=== PATIENT | female | born 1940 | race Caucasian/White ===

== ENCOUNTER → 2020-02-13 14:48 | Outpatient (BNVA) | payer MEDICARE, SELFPAY | PROVIDERS: PCP Internal Medicine; Referring Provider Internal Medicine; Visit Provider Hospitalist | DX: J44.9 Chronic obstructive pulmonary disease, unspecified (principal); J98.11 Atelectasis | CPT/HCPCS: 99212 ==

== ENCOUNTER → 2020-03-03 14:20 | Outpatient (BNVA) | payer MEDICARE, SELFPAY | PROVIDERS: PCP Internal Medicine; Visit Provider Hospitalist | DX: J44.9 Chronic obstructive pulmonary disease, unspecified (principal); J98.11 Atelectasis; R91.8 Other nonspecific abnormal finding of lung field | CPT/HCPCS: 99212 ==

== ENCOUNTER → 2020-04-21 10:17 | Outpatient (BNVA) | payer MEDICARE, SELFPAY | PROVIDERS: PCP Internal Medicine; Visit Provider Hospitalist | DX: R91.8 Other nonspecific abnormal finding of lung field (principal); J98.11 Atelectasis; J44.9 Chronic obstructive pulmonary disease, unspecified; J21.9 Acute bronchiolitis, unspecified | CPT/HCPCS: 99212 ==

== ENCOUNTER 2020-09-29 10:59 | Outpatient (REF) | payer MEDICARE, SELFPAY ==
--- NOTE | 2020-09-29 17:30 | PFT_ITS ---
INDICATION: Bronchitis. SPIROMETRY: The FEV1 to FVC of 79% with an FEV1 of 1.8 L, which is 93% predicted and an FVC of 2.29 L, which is 88% predicted. Post bronchodilators, there was a significant response of the FEV1 by 14%. The maximum voluntary ventilation 92% predicted. LUNG VOLUMES: Total lung capacity 98% predicted with a residual volume of 119% predicted. DIFFUSION CAPACITY: DLCO of 62% predicted. COMPARISONS: None. INTERPRETATION: No obstructive nor restrictive ventilatory defects noted. There was a significant response to bronchodilators noted. Significantly reactive small airways. Maximum voluntary ventilation within normal limits. Lung volumes within normal limits except for a trend of air trapping and there was a mild diffusion impairment. Clinical correlation warranted. MD ALEK Luciano/MODL / [id number]
== END 2020-09-29 11:00 | disposition home or self-care (01) ==
LOC: HO.RESP 10:59
PROVIDERS: PCP Internal Medicine; Visit Provider Hospitalist
DX: J21.9 Acute bronchiolitis, unspecified (principal)
CPT/HCPCS: 94060; 94727; 94729

== ENCOUNTER → 2020-10-23 10:49 | Outpatient (BNVA) | payer MEDICARE, SELFPAY | PROVIDERS: PCP Internal Medicine; Visit Provider Hospitalist | DX: R07.82 Intercostal pain (principal); J21.9 Acute bronchiolitis, unspecified; J98.11 Atelectasis; J44.9 Chronic obstructive pulmonary disease, unspecified; R91.8 Other nonspecific abnormal finding of lung field; R05 Cough | CPT/HCPCS: 99212 ==

== ENCOUNTER → 2021-04-20 10:30 | Outpatient (BNVA) | payer MEDICARE, SELFPAY | PROVIDERS: PCP Internal Medicine; Visit Provider Hospitalist | DX: J44.9 Chronic obstructive pulmonary disease, unspecified (principal); J21.9 Acute bronchiolitis, unspecified; J98.11 Atelectasis; R05.3 Chronic cough; R91.8 Other nonspecific abnormal finding of lung field | CPT/HCPCS: 99212 ==

== ENCOUNTER → 2021-09-28 10:35 | Outpatient (BNVA) | payer MEDICARE, SELFPAY | PROVIDERS: PCP Internal Medicine; Visit Provider Hospitalist | DX: J44.9 Chronic obstructive pulmonary disease, unspecified (principal); J21.9 Acute bronchiolitis, unspecified; R91.8 Other nonspecific abnormal finding of lung field; J98.11 Atelectasis; R05.9 Cough, unspecified; Z79.899 Other long term (current) drug therapy | CPT/HCPCS: 99212 ==

== ENCOUNTER → 2022-01-07 13:58 | Outpatient (BNVA) | payer MEDICARE, SELFPAY | PROVIDERS: PCP Internal Medicine; Visit Provider Nurse Practitioner Family | DX: G25.0 Essential tremor (principal); R26.9 Unspecified abnormalities of gait and mobility | CPT/HCPCS: 99212 ==

== ENCOUNTER → 2022-06-22 10:43 | Outpatient (BNVA) | payer MEDICARE, SELFPAY | PROVIDERS: PCP Internal Medicine; Visit Provider Hospitalist | DX: J44.9 Chronic obstructive pulmonary disease, unspecified (principal); R91.8 Other nonspecific abnormal finding of lung field; J98.11 Atelectasis; R05.9 Cough, unspecified; Z79.899 Other long term (current) drug therapy | CPT/HCPCS: 99212 ==

== ENCOUNTER → 2022-07-04 10:50 | Outpatient (BNVA) | payer MEDICARE, SELFPAY | PROVIDERS: PCP Internal Medicine Geriatric Medicine; Visit Provider Nurse Practitioner Family | DX: G25.0 Essential tremor (principal); G47.50 Parasomnia, unspecified | CPT/HCPCS: 99212 ==

== ENCOUNTER 2022-11-04 11:38 | Outpatient (AMB) | payer MEDICARE, SELFPAY ==
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
[2022-11-04 11:41] VITALS: BP 142/80; PULSE 72; O2SAT 95; BMI 17.5
== END 2022-11-04 12:37 | disposition home or self-care (01) ==
PROVIDERS: Visit Provider Nurse Practitioner Family
DX: G25.0 Essential tremor (principal); R26.9 Unspecified abnormalities of gait and mobility; G47.50 Parasomnia, unspecified; R32 Unspecified urinary incontinence; R41.89 Other symptoms and signs involving cognitive functions and awareness
CPT/HCPCS: 99214

== ENCOUNTER → 2022-11-04 11:38 | Outpatient (BNVA) | payer MEDICARE, SELFPAY | PROVIDERS: Visit Provider Nurse Practitioner Family | DX: G25.0 Essential tremor (principal); R26.9 Unspecified abnormalities of gait and mobility; G47.50 Parasomnia, unspecified; R32 Unspecified urinary incontinence; F09 Unspecified mental disorder due to known physiological condition; Z79.899 Other long term (current) drug therapy | CPT/HCPCS: 99212 ==

== ENCOUNTER 2022-12-28 10:27 | Outpatient (AMB) | payer MEDICARE, SELFPAY ==
[2022-12-28 10:59] VITALS: PULSE 76; O2SAT 95; BMI 17.3
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
== END 2022-12-28 11:20 | disposition home or self-care (01) ==
PROVIDERS: PCP Internal Medicine Geriatric Medicine; Visit Provider Hospitalist
DX: J45.41 Moderate persistent asthma with (acute) exacerbation (principal); J21.9 Acute bronchiolitis, unspecified; R91.8 Other nonspecific abnormal finding of lung field; J98.11 Atelectasis; R05.9 Cough, unspecified
CPT/HCPCS: 99214

== ENCOUNTER → 2022-12-28 10:27 | Outpatient (BNVA) | payer MEDICARE, SELFPAY | PROVIDERS: PCP Internal Medicine Geriatric Medicine; Visit Provider Hospitalist | DX: J21.9 Acute bronchiolitis, unspecified (principal); J45.41 Moderate persistent asthma with (acute) exacerbation; J44.9 Chronic obstructive pulmonary disease, unspecified; R91.8 Other nonspecific abnormal finding of lung field; J98.11 Atelectasis; R05.3 Chronic cough | CPT/HCPCS: 99212 ==

== ENCOUNTER 2023-02-02 09:14 | Outpatient (REF) | payer MEDICARE, SELFPAY ==
--- NOTE | ~2023-02-02 | MR_ITS ---
MRI OF THE BRAIN WITHOUT IV CONTRAST INDICATION: Unspecified mental disorder due to known physiological condition COMPARISON: None available. TECHNIQUE: Multiplanar multisequence MR imaging of the brain was obtained without IV contrast. FINDINGS: No acute intracranial hemorrhage or infarct. Scattered and confluent periventricular white matter T2/FLAIR hyperintensities, nonspecific however commonly seen with small vessel ischemic disease. No midline shift or hydrocephalus. No acute extra-axial fluid collections. The osseous structures are unremarkable. The pituitary gland, pineal gland and remaining midline structures are unremarkable. Sequela bilateral lens replacement. Otherwise, no orbital pathology. The paranasal sinuses and mastoid air cells are clear. MR/MR head/brain wo con IMPRESSION: No acute intracranial abnormality. Microangiopathy disease.
== END 2023-02-02 09:15 | disposition home or self-care (01) ==
LOC: HO.MRI 09:14
PROVIDERS: PCP Internal Medicine Geriatric Medicine; Visit Provider Nurse Practitioner Family
DX: F09 Unspecified mental disorder due to known physiological condition (principal); G47.50 Parasomnia, unspecified; R26.9 Unspecified abnormalities of gait and mobility; G25.0 Essential tremor; R32 Unspecified urinary incontinence
CPT/HCPCS: 70551

== ENCOUNTER 2023-03-06 10:27 | Outpatient (REF) | payer MEDICARE, SELFPAY ==
--- NOTE | 2023-03-06 | PFT_ITS ---
FLOWS: 1. FEV1 43% of predicted at 0.81 L. 2. FVC 82% of predicted at 2.02 L. 3. FEV1 to FVC ratio of 0.40. 4. Positive bronchodilator response. LUNG VOLUMES: 1. Total lung capacity 128% of predicted at 6.23 L. 2. Residual volume 193% of predicted at 4.1 L. 3. Expiratory reserve volume 62% of predicted at 0.39 L. 4. Slow vital capacity 78% of predicted at 2.02 L. 5. Diffusion capacity is moderately decreased, diffusion capacity had just been mildly decreased after correction for alveolar ventilation.. IMPRESSION: Severe obstructive ventilatory defect with positive bronchodilator response. Increased total lung capacity suggests hyperinflation. Increased residual volume suggests air trapping. Decreased diffusion capacity suggests emphysema. Nixon Dalal MD AP/MODL / [id number]
== END 2023-03-06 10:28 | disposition home or self-care (01) ==
LOC: HO.RESP 10:27
PROVIDERS: PCP Internal Medicine Geriatric Medicine; Visit Provider Hospitalist
DX: J44.9 Chronic obstructive pulmonary disease, unspecified (principal)
CPT/HCPCS: 94010; 94727; 94729; 99212

== ENCOUNTER 2023-03-06 10:31 | Outpatient (AMB) | payer MEDICARE, SELFPAY ==
[2023-03-06 10:37] VITALS: BP 128/70; PULSE 60; O2SAT 94; BMI 17.2
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
== END 2023-03-06 10:58 | disposition home or self-care (01) ==
PROVIDERS: PCP Internal Medicine Geriatric Medicine; Visit Provider Hospitalist
DX: J45.41 Moderate persistent asthma with (acute) exacerbation (principal)
CPT/HCPCS: 94060; 94727; 94729; 99214

== ENCOUNTER 2023-03-07 11:10 | Outpatient (AMB) | payer MEDICARE, SELFPAY ==
[2023-03-07 11:22] VITALS: BP 140/82; PULSE 68; O2SAT 93; BMI 17.2
--- NOTE | 2023-03-07 11:22 | MHC.OFFVIS ---
Intake Vital Signs 03/07/23 11:22 Height 5 ft 4 in Weight 100 lb 4 oz BMI 17.2 BP 140/82 H Blood Pressure Location Lt brachial Position Sitting Pulse 68 Pulse Source Pulse Oximeter Pulse Oximetry (%) 93 Oxygen Delivery Method Room Air Intake Visit Reasons: 4 mo f/u - Tremors - Confirmed Intake Note: Pt presents to the office today for a 4 month follow up for tremors. Pt states her tremors are doing a little better but pt states that sometimes they are more prominent when she has anxiety/fatigue/or nervousness. Pt states she thinks the medication is helping as well. Allergies Opiates Allergy (Intermediate, Uncoded 03/07/23 11:22) Itch and Hives Medication List - Last Reconciled 03/07/23 by SYEDA Pond acetaminophen (Tylenol) 325 mg PO QID PRN albuterol sulfate 2.5 mg (3 mL) inhalation Q6H PRN 30 days budesonide-formoterol 160-4.5 mcg/actuation 2 puffs PO BID 30 days calcium carbonate (Calcium 500) 1,200 mg PO DAILY cetirizine (Zyrtec) 10 mg PO DAILY 30 days folic acid 1 mg PO DAILY hydroxychloroquine 200 mg PO DAILY ipratropium bromide 1 vial inhaled daily; levalbuterol tartrate 45 mcg/actuation (Xopenex HFA) 2 puffs inhalation Q6H PRN 30 days levothyroxine 50 mcg PO DAILY methotrexate sodium (PF) mg subcut metoprolol succinate ER 25 mg PO DAILY nebulizers As directed omeprazole 20 mg PO DAILY primidone 25 mg (1/2 x 50 mg) PO BEDTIME 90 days HPI HPI Comments History of Present Illness Details 82-yr-old female presents for f/u visit. Pt denies any significant interval medical changes. Pt is wondering about weaning off of omeprazole- started omeprazole at some point for GERD s/s. She has started Tums, per rheumatology. She plans to start calcium infusions. She will need bilateral lower molar removal prior - as these already have poor dentition. Her hand tremor varies- sometimes not apparent at all, other times it will make it very difficult to write. Especially, if stressed, hungry, or fatigued. Her voice varies- some days better than others. She can sometimes feel that her foot is stuck when trying to step up on her scale. Not coughing- which is good. Her nose has been dripping for months- which she attributes to allergies. Is taking Primidone 1/2 tab qd- which helps tremor. [facility] Medical History Chronic cough Bronchiolitis Pulmonary nodules Atelectasis Asthma-COPD overlap syndrome Surgical History Hx of neck surgery History of back surgery H/O: hysterectomy Hx of appendectomy Family History Father Heart disease Lung disease Dementia Son Epilepsy Alcohol intake: never Patient Tobacco Use Status: Never used Tobacco Review of Systems Const All systems reviewed & are unremarkable except as noted in HPI and below Physical Exam Vital Signs: Last Vital Signs Pulse 68 03/07/23 11:22 BP 140/82 H 03/07/23 11:22 Pulse Ox 93 03/07/23 11:22 Oxygen Delivery Method Room Air 03/07/23 11:22 BMI result Body Mass Index 17.2 Const General: cooperative and no acute distress Orientation/consciousness: patient oriented x3 HEENT Head: Yes normocephalic Resp Effort & Inspection: normal respiratory effort and able to speak in complete sentences Neuro General: patient oriented x3, gait normal and CN's II-XI intact bilaterally Cognition (Neuro): normal cognition Motor exam (neuro): 5/5 motor strength present throughout Psych Appearance: grossly normal Mental Status: mental status grossly normal Speech and movement: Normal speech and movement present Affect: normal affect Attitude: cooperative Thought process: Normal thought process present Thought content: Normal thought content present Insight: Good insight present (Psych) Judgement: Good judgement present (Psych) Assessment & Plan Assessment & Plan (1) Essential tremor: Code(s): G25.0 - Essential tremor (2) Gait difficulty: Code(s): R26.9 - Unspecified abnormalities of gait and mobility (3) 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 Continue Primidone 25mg qd. Addition of Metoprolol may help w/ tremor- continue per cardiology. For REM sleep behaviors- keep area around bed clear of clutter, notify us w/ any worsening sleep behaviors. Discussed strategies to break freezing/stcuk episodes- stepping inplace, tapping her thigh/hip. Encouraged pt to continue cognitive, social, and physically stimulating activities. Future considerations: in-lab PSG- ? ARTEM/narcolepsy/hypersomnia, low dose CD-LD. Coding Level of Care Code Est Pt Level 4 (64502) Diagnoses Essential tremor G25.0 Gait difficulty R26.9 Parasomnia G47.50
== END 2023-03-07 13:12 | disposition home or self-care (01) ==
PROVIDERS: PCP Internal Medicine Geriatric Medicine; Visit Provider Nurse Practitioner Family
DX: G25.0 Essential tremor (principal); R26.9 Unspecified abnormalities of gait and mobility; G47.50 Parasomnia, unspecified
CPT/HCPCS: 99214

== ENCOUNTER → 2023-03-07 11:10 | Outpatient (BNVA) | payer MEDICARE, SELFPAY | PROVIDERS: PCP Internal Medicine Geriatric Medicine; Visit Provider Nurse Practitioner Family | DX: G25.0 Essential tremor (principal); R26.9 Unspecified abnormalities of gait and mobility; G47.50 Parasomnia, unspecified | CPT/HCPCS: 99212 ==

== ENCOUNTER 2023-06-23 07:53 | Outpatient (AMB) | payer MEDICARE, SELFPAY ==
[2023-06-23 08:14] VITALS: PULSE 81; O2SAT 92; BMI 17.0
--- NOTE | 2023-06-23 08:14 | A.OFFVIS_ITS ---
Intake Vital Signs 06/23/23 08:14 Height 5 ft 4 in Weight 99 lb 2 oz BMI 17.0 Pulse 81 Pulse Source Pulse Oximeter Pulse Oximetry (%) 92 Oxygen Delivery Method Room Air Intake Visit Reasons: 4 MO f/u tremors-Conf Intake Note: Patient presents for 4 month follow up tremors. Allergies Opiates Allergy (Intermediate, Uncoded 06/26/23 13:25) Itch and Hives Medication List - Last Reconciled 06/23/23 by SYEDA Pond acetaminophen (Tylenol) 325 mg PO QID PRN albuterol sulfate 2.5 mg (3 mL) inhalation Q6H PRN 30 days budesonide-formoterol 160-4.5 mcg/actuation 2 puffs PO BID 30 days calcium carbonate (Calcium 500) 1,200 mg PO DAILY cetirizine (Zyrtec) 10 mg PO DAILY 30 days folic acid 1 mg PO DAILY hydrocortisone 1% (Anti-Itch (hydrocortisone)) 1 appl topical QID PRN 7 days hydroxychloroquine 200 mg PO DAILY ipratropium bromide 1 vial inhaled daily; levalbuterol tartrate 45 mcg/actuation (Xopenex HFA) 2 puffs inhalation Q6H PRN 30 days levothyroxine 50 mcg PO DAILY methotrexate sodium (PF) mg subcut metoprolol succinate ER 25 mg PO DAILY nebulizers As directed omeprazole 20 mg PO DAILY primidone 25 mg (1/2 x 50 mg) PO BEDTIME 90 days HPI HPI Comments History of Present Illness Details 83-yr-old female presents for f/u visit. Pt states she developed a worsening cough in Apr. She did have a course of ABT, and did not cough while on the ABT, however the cough has since returned. She is doing a saline rinse. She is f/b Dr Granados- Since the cough onset, she has also had itchy very small pustules, which break open. They come and go. They are her arms and legs. She has a routine dermato logy appt next month. She has a f/u cardiology appt in September- she does not think she needs to keep this appt. When her voice is good on some days- better when her nose is clear. Hand tremor is stable. Typing is difficult. Worse if anxious. Taking Primidone 1/2 tab at bedtime. She is not interested in changing tremor meds. [facility] Medical History Chronic cough Bronchiolitis Pulmonary nodules Atelectasis Asthma-COPD overlap syndrome Surgical History Hx of neck surgery History of back surgery H/O: hysterectomy Hx of appendectomy Family History Father Heart disease Lung disease Dementia Son Epilepsy Social History (Updated 06/26/23 @ 13:30 by Jeannette Odom LPN) Alcohol intake: never Patient Tobacco Use Status: Former Tobacco user Tobacco use type: Cigarette Cigarette Packs Per Day: 1 Years Smoked: 4 Review of Systems Const All systems reviewed & are unremarkable except as noted in HPI and below Physical Exam Vital Signs: Last Vital Signs Pulse 81 06/23/23 08:14 Pulse Ox 92 06/23/23 08:14 Oxygen Delivery Method Room Air 06/23/23 08:14 BMI result Body Mass Index 17.0 Const General: cooperative and no acute distress Resp Effort & Inspection: normal respiratory effort and able to speak in complete sentences Neuro Other: A&O x's 3, w/ just very mild STM lapses Mild voice tremor/spasmotic dysphonia BUE postural tremor. FFM- slight decrease on left Stands easily, slight decreased arm swing, good floor clearance, steady. Assessment & Plan Assessment & Plan (1) Essential tremor: Code(s): G25.0 - Essential tremor (2) Dysphonia, spasmodic: Code(s): J38.3 - Other diseases of vocal cords (3) Rash: Code(s): R21 - Rash and other nonspecific skin eruption Plan For rash: trial hydrocortisone cream- f/u w/ PCP or derm if persists. Discussed alternate tremor tx's- pt opts to not change tx at this time. Continue Primidone 25mg qd. Metoprolol may help w/ tremor- continue per cardiology. For REM sleep behaviors- keep area around bed clear of clutter, notify us w/ any worsening sleep behaviors. Continue strategies to break freezing/stcuk episodes- stepping inplace, tapping her thigh/hip. Encouraged pt to continue cognitive, social, and physically stimulating activities. Future considerations: in-lab PSG- ? ARTEM/narcolepsy/hypersomnia, low dose CD-LD. Medications: New hydrocortisone 1% (Anti-Itch (hydrocortisone)) 1 appl topical QID PRN 28.4 grams 1RF skin irritation 7 days Refilled primidone May take extra 1/2 tab per day prn tremor 25 mg (1/2 x 50 mg) PO BEDTIME 90 tabs 1RF 90 days Discontinued prednisone Discontinued Reason: Duplicate 40 mg (2 x 20 mg) PO BID 10 tabs 0RF Coding Level of Care Code Est Pt Level 4 (74968) Diagnoses Essential tremor G25.0 Dysphonia, spasmodic J38.3 Rash R21
== END 2023-06-23 08:55 | disposition home or self-care (01) ==
PROVIDERS: PCP Internal Medicine Geriatric Medicine; Visit Provider Nurse Practitioner Family
DX: G25.0 Essential tremor (principal); J38.3 Other diseases of vocal cords; R21 Rash and other nonspecific skin eruption
CPT/HCPCS: 99214

== ENCOUNTER → 2023-06-23 07:53 | Outpatient (BNVA) | payer MEDICARE, SELFPAY | PROVIDERS: PCP Internal Medicine Geriatric Medicine; Visit Provider Nurse Practitioner Family | DX: G25.0 Essential tremor (principal); J38.3 Other diseases of vocal cords; R21 Rash and other nonspecific skin eruption | CPT/HCPCS: 99212 ==

== ENCOUNTER 2023-06-26 13:15 | Outpatient (AMB) | payer MEDICARE, SELFPAY ==
[2023-06-26 13:17] VITALS: BP 142/74; PULSE 91; O2SAT 94
--- NOTE | 2023-06-26 13:17 | MHC.OFFVIS ---
Intake Vital Signs 06/26/23 13:17 Height 54 ft Weight 99 lb 3.328 oz BMI 0.2 BP 142/74 H Blood Pressure Location Lt brachial Position Sitting Pulse 91 Pulse Source Pulse Oximeter Pulse Oximetry (%) 94 Oxygen Delivery Method Room Air Intake Visit Reasons: persistent cough Ladle Cleaner Required: No Assistant Professor Of Religion: Assistant Professor Of Religion offered & declined Accompanied by: Self / Same As Patient Allergies Opiates Allergy (Intermediate, Uncoded 06/26/23 13:25) Itch and Hives Medication List - Last Reconciled 06/26/23 by Jeannette Odom LPN acetaminophen (Tylenol) 325 mg PO QID PRN albuterol sulfate 2.5 mg (3 mL) inhalation Q6H PRN 30 days budesonide-formoterol 160-4.5 mcg/actuation 2 puffs PO BID 30 days calcium carbonate (Calcium 500) 1,200 mg PO DAILY folic acid 1 mg PO DAILY hydrocortisone 1% (Anti-Itch (hydrocortisone)) 1 appl topical QID PRN 7 days hydroxychloroquine 200 mg PO DAILY ipratropium bromide 1 vial inhaled daily; levalbuterol tartrate 45 mcg/actuation (Xopenex HFA) 2 puffs inhalation Q6H PRN 30 days levothyroxine 50 mcg PO DAILY methotrexate sodium (PF) mg subcut metoprolol succinate ER 25 mg PO DAILY nebulizers As directed primidone 25 mg (1/2 x 50 mg) PO BEDTIME 90 days HPI persistent cough HPI Details Mckenna is a pleasant 83 year old female, never smoker, with underlying asthma/COPD over lap syndrome, chronic cough, pulmonary nodules and rheumatoid arthritis maintained on methotrexate. At baseline, she is well controlled on symbicort, zyrtec and albuterol neb/MDI. Today she presents for an acute visit. She reports a persistent productive cough with yellow sputum and chest congestion. She denies fever,chills or sick contacts. She denies wheezing or worsening dyspnea. Covid negative. Of note, she was treated in April with azithromycin and prednisone due to similar symptoms. [facility] Medical History Chronic cough Bronchiolitis Pulmonary nodules Atelectasis Asthma-COPD overlap syndrome Surgical History Hx of neck surgery History of back surgery H/O: hysterectomy Hx of appendectomy Family History Father Heart disease Lung disease Dementia Son Epilepsy Social History (Updated 06/26/23 @ 13:30 by Jeannette Odom LPN) Alcohol intake: never Patient Tobacco Use Status: Former Tobacco user Tobacco use type: Cigarette Cigarette Packs Per Day: 1 Years Smoked: 4 Review of Systems Const Denies chills, Denies excessive sweating, Denies fever(s), Denies headache(s) and Denies night sweats Eyes Denies dry eyes, Denies irritation and Denies itchy eyes ENT Reports Normal hearing present, Denies headache(s), Reports nasal congestion, Denies nasal discharge, Reports post nasal drip and Denies sore throat Card Denies chest pain, Denies chest pain at rest, Denies chest pain with activity, Denies claudication, Denies leg edema, Reports dyspnea on exertion, Denies orthopnea and Denies paroxysmal nocturnal dyspnea Resp Reports change in phlegm color, Reports chest congestion, Reports cough, Denies hemoptysis, Denies excessive phlegm production, Denies pain on inspiration, Denies pain with cough, Reports dyspnea on exertion, Denies stridor and Denies wheezing Musc Denies myalgias Neuro Reports Normal hearing present and Denies headache(s) Endo Denies excessive sweating Walt/Lymph Denies lymphadenopathy Aller/Immun Denies itchy eyes, Denies seasonal rhinorrhea and Denies wheezing Physical Exam Vital Signs: Last Vital Signs Pulse 91 06/26/23 13:17 BP 142/74 H 06/26/23 13:17 Pulse Ox 94 06/26/23 13:17 Oxygen Delivery Method Room Air 06/26/23 13:17 BMI result Body Mass Index 0.2 Const General: cooperative, no acute distress and alert Orientation/consciousness: patient oriented x3 Limitations: no limitations HEENT Head: Yes normal to inspection, Yes normocephalic and Yes atraumatic Ears: hearing grossly normal bilaterally and external ears normal Eyes General: appearance normal, both eyes and all related structures Eyelids: Yes eyelids normal Sclerae: sclerae normal EOM: EOMs intact bilaterally Neck Neck: Yes normal visual inspection and Yes no lymphadenopathy Lymphatic: no lymphadenopathy noted Chest Chest palpation & inspection: normal inspection of the chest Resp Effort & Inspection: normal respiratory effort, able to speak in complete sentences, no audible wheezes, no stridor, not tachypneic, no tripod positioning and no use of accessory muscles Auscultation: wheezes expiratory wheezes and throughout and diminished lung sounds Cardio Jugular venous distension: no JVD Rate: regular rate Rhythm: regular rhythm Skin Other: warm, dry General skin exam: no rashes or lesions noted Neuro General: patient oriented x3 Cranial nerves: Yes Normal hearing present Cognition (Neuro): normal cognition Gait exam (Neuro): Normal gait present Extrem General: Yes normal to inspection, Yes capillary refill normal, Yes no clubbing, cyanosis or edema and Yes no pedal edema Psych Appearance: grossly normal and well kempt Speech and movement: Normal speech and movement present and Clear speech present Affect: normal affect Attitude: cooperative Thought process: Normal thought process present Thought content: Normal thought content present Insight: Good insight present (Psych) Judgement: Good judgement present (Psych) Assessment & Plan Assessment & Plan (1) Asthma-COPD overlap syndrome: Code(s): J44.9 - Chronic obstructive pulmonary disease, unspecified Plan Will treat bronchitic symptoms and wheezing with doxycyline and prednisone. If patient's symptoms do not improve will send for CXR. Patient is aware to call if symptoms do not improve or seek emergent care if they worsen. All questions were answered and patient is in agreement of plan. Will follow-up for her regularly scheduled appointment with Dr. Granados, or sooner if needed. Orders: Orders XR chest 2V 06/26/23 R06.00 - Dyspnea, unspecified Medications: New prednisone 40 mg (2 x 20 mg) PO BID 10 tabs 0RF doxycycline hyclate 100 mg PO BID 20 caps 0RF prednisone 40 mg (2 x 20 mg) PO BID 10 tabs 0RF Coding Level of Care Code Est Pt Level 3 (31499) Diagnoses Asthma-COPD overlap syndrome J44.9
== END 2023-06-26 13:58 | disposition home or self-care (01) ==
PROVIDERS: PCP Internal Medicine Geriatric Medicine; Visit Provider Nurse Practitioner Family
DX: J44.9 Chronic obstructive pulmonary disease, unspecified (principal)
CPT/HCPCS: 99213

== ENCOUNTER → 2023-06-26 13:15 | Outpatient (BNVA) | payer MEDICARE, SELFPAY | PROVIDERS: PCP Internal Medicine Geriatric Medicine; Visit Provider Nurse Practitioner Family | DX: J44.9 Chronic obstructive pulmonary disease, unspecified (principal) | CPT/HCPCS: 99212 ==

== ENCOUNTER 2023-10-04 09:34 | Outpatient (AMB) | payer MEDICARE, SELFPAY ==
[2023-10-04 09:46] VITALS: BP 128/60; PULSE 73; O2SAT 96; BMI 17.0
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
== END 2023-10-04 10:06 | disposition home or self-care (01) ==
PROVIDERS: PCP Student in an Organized Health Care Education/Training Program; Visit Provider Hospitalist
DX: J45.41 Moderate persistent asthma with (acute) exacerbation (principal); J44.9 Chronic obstructive pulmonary disease, unspecified; R91.8 Other nonspecific abnormal finding of lung field; J98.11 Atelectasis; R05.9 Cough, unspecified; R06.09 Other forms of dyspnea
CPT/HCPCS: 99214

== ENCOUNTER → 2023-10-04 09:34 | Outpatient (BNVA) | payer MEDICARE, SELFPAY | PROVIDERS: PCP Student in an Organized Health Care Education/Training Program; Visit Provider Hospitalist | DX: J45.41 Moderate persistent asthma with (acute) exacerbation (principal); J44.9 Chronic obstructive pulmonary disease, unspecified; J98.11 Atelectasis; R06.00 Dyspnea, unspecified; R91.8 Other nonspecific abnormal finding of lung field; R05.3 Chronic cough | CPT/HCPCS: 99212 ==

== ENCOUNTER 2023-12-28 10:49 | Outpatient (AMB) | payer MEDICARE, SELFPAY ==
--- NOTE | 2023-12-28 11:00 | A.OFFVIS_ITS ---
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 Required: No Accompanied by: Self / Same As Patient Allergies Opiates Allergy (Intermediate, Uncoded 10/04/23 09:49) Itch and Hives Medication List - Last Reconciled 12/28/23 by SYEDA Pond acetaminophen (Tylenol) 325 mg PO QID PRN albuterol sulfate 2.5 mg (3 mL) inhalation Q6H PRN 30 days budesonide-formoterol 160-4.5 mcg/actuation 2 puffs PO BID 30 days calcium carbonate (Calcium 500) 1,200 mg PO DAILY folic acid 1 mg PO DAILY hydrocortisone 1% (Anti-Itch (hydrocortisone)) 1 appl topical QID PRN 7 days hydroxychloroquine 200 mg PO DAILY ipratropium bromide 1 vial inhaled daily; levalbuterol tartrate 45 mcg/actuation (Xopenex HFA) 2 puffs inhalation Q6H PRN 30 days levothyroxine 50 mcg PO DAILY methotrexate sodium (PF) mg subcut metoprolol succinate ER 25 mg PO DAILY nebulizers As directed primidone 25 mg (1/2 x 50 mg) PO BEDTIME 90 days HPI Comments Details: 83-yr-old female presents for f/u visit. Pt denies any significant interval medical history changes. Pt [facility]- though they do provide housecleaning and dinner in a main dining room She states her sons wanted her to move as they felt she should not be living on her own in her house any longer. She states a major factor was that her house was in need of repairs that she was not interested in doing. She does feel that she was doing a few things that was a bit concerning- forgetting to lock the doors. She notes her PCP was concerned with her weight loss- pt attributes this to moving out of her house- having to go go up and down her stairs carrying boxes multiple times. Pt states she does usually eat well, but as she has been cleaning out her house, she was not eating as there was no food left in the house. Pt reports her voice is a bit hoarse, but voice tremor is ok. She recently had an asthma attack- which she attributed to cleaning of the house. She does not recall having an attack like that before. But the nurse at her facility helped her and gave her breathing tx. She notes a soon as she decided to move into the [facility]/ASSISTED her writing became much beter. Now only if very stressed. The previous rash resolved. [facility] Medical History Pneumonia Chronic cough Bronchiolitis Pulmonary nodules Atelectasis Asthma-COPD overlap syndrome Surgical History Hx of neck surgery History of back surgery H/O: hysterectomy Hx of appendectomy Family History Father Heart disease Lung disease Dementia Son Epilepsy Social History Alcohol intake: never Patient Tobacco Use Status: Former Tobacco user Tobacco use type: Cigarette Cigarette Packs Per Day: 1 Years Smoked: 4 Physical Exam Vital Signs: Last Vital Signs Pulse 67 12/28/23 11:01 BP 122/72 12/28/23 11:01 Pulse Ox 94 12/28/23 11:01 Const General: cooperative and no acute distress Resp Effort & Inspection: normal respiratory effort and able to speak in complete sentences Neuro Other: General: A&O x's 3 Expression: Intact Voice: Hoarse, decreased dysphonia/tremor Tremor: No rest/postural tremor today. Very mild head tremor. Mild LUE kinetic tremor. On Archimede's spiral- very mild tremor, left more so than right. Tone: None Dyskinesia: None FFM: Slight decrease on left Foot taps: Slight decrease on left Gait: Stands easily, good stride- possible left high step, steady gait Psych: Pleasant affect. Assessment & Plan Assessment & Plan (1) Essential tremor: Code(s): G25.0 - Essential tremor Category: Medical (2) Cognitive dysfunction: Code(s): F09 - Unspecified mental disorder due to known physiological condition Category: Medical (3) Dysphonia, spasmodic: Code(s): J38.3 - Other diseases of vocal cords Category: Medical Plan Concur w/ recomendation to ensure pt is eating tis and snacks. Continue Primidone 25mg qd. Metoprolol may help w/ tremor- continue per cardiology. For REM sleep behaviors- Monitor. Keep area around bed clear of clutter, notify us w/ any worsening sleep behaviors. Continue strategies to break freezing/stcuk episodes- stepping inplace, tapping her thigh/hip. Discussed imporatnce of cognitive, social, and physically stimulating activities. Future considerations: in-lab PSG- ? ARTEM/narcolepsy/hypersomnia, low dose CD-LD. Coding Level of Care Code Est Pt Level 4 (00665) Diagnoses Essential tremor G25.0 Cognitive dysfunction F09 Dysphonia, spasmodic J38.3
[2023-12-28 11:01] VITALS: BP 122/72; PULSE 67; O2SAT 94
== END 2023-12-28 11:59 | disposition home or self-care (01) ==
PROVIDERS: PCP Internal Medicine Geriatric Medicine; Visit Provider Nurse Practitioner Family
DX: G25.0 Essential tremor (principal); R41.89 Other symptoms and signs involving cognitive functions and awareness; J38.3 Other diseases of vocal cords
CPT/HCPCS: 99214

== ENCOUNTER → 2023-12-28 10:49 | Outpatient (BNVA) | payer MEDICARE, SELFPAY | PROVIDERS: PCP Internal Medicine Geriatric Medicine; Visit Provider Nurse Practitioner Family | DX: G25.0 Essential tremor (principal); J38.3 Other diseases of vocal cords; F09 Unspecified mental disorder due to known physiological condition | CPT/HCPCS: 99212 ==

== ENCOUNTER 2023-12-29 19:58 | Emergency (ER) | payer MEDICARE, SELFPAY ==
--- NOTE | ~2023-12-29 | CT_ITS ---
EXAMINATION: CT HEAD WITHOUT CONTRAST CLINICAL INFORMATION: Intermittent episodes of confusion COMPARISON: 02/02/2023 TECHNIQUE: Contiguous axial imaging was performed from the skull base to vertex without intravenous administration of contrast. This CT examination was performed using dose optimization techniques as appropriate, variously including the following: *Automated exposure control *Adjustment of mA and/or kV according to patient size (this includes techniques or standardized protocols for targeted exams where dose is matched to indication/reason for exam; i.e. extremities or head) *Use of iterative reconstruction technique DLP: 627 mGy-cm FINDINGS: There is no evidence of acute intracranial hemorrhage or territorial infarction. No abnormal mass-effect or midline shift is seen. Andrews to white matter differentiation is well preserved. No extra-axial fluid collections are identified. The ventricles are normal in size. There is moderate periventricular white matter hypoattenuation consistent with chronic small vessel ischemic disease. Mild volume loss is noted. The osseous structures and soft tissues are normal. Partial opacification of the left sphenoid sinus. The mastoid air cells are well-aerated. CT/CT head/brain wo IV con IMPRESSION: No acute intracranial pathology. Chronic small vessel ischemic disease and volume loss. Electronically signed by: Omkar Ha MD 12/30/2023 01:45 AM EDT
[2023-12-29 20:02] VITALS: BP 184/76; PULSE 74
[2023-12-29 20:06] VITALS: BP 169/71; PULSE 78; RESP 16; TEMP 36.8; O2SAT 97; BMI 17.5
--- NOTE | 2023-12-29 20:13 | ECG_ITS ---
Test Reason : WEAKNESS Blood Pressure : / mmHG Vent. Rate : 072 BPM Atrial Rate : 072 BPM P-R Int : 182 ms QRS Dur : 118 ms QT Int : 394 ms P-R-T Axes : 078 073 064 degrees QTc Int : 431 ms Normal sinus rhythm Right bundle branch block Abnormal ECG No previous ECGs available Referred By: Generic ED Physician Electronically Signed By:STELLA CEDENO
[2023-12-29 20:36] LABS: MANUAL DIFF FLAG NO
[2023-12-29 20:37] LABS: Basophils Percent Auto 0.6 % (0-2); Eosinophils Absolute Auto 0.6 X10*3/uL (0.0-0.4); Eosinophils Percent Auto 8.7 % (0-4); Hematocrit 35.6 % (37.0-47.0); Hemoglobin 12.3 g/dl (12.0-16.0); Imm Gran Abs Auto 0.03 X10*3/uL (0.00-0.03); Imm Gran Pct Auto 0.4 % (0.0-0.4); Lymphocytes Absolute Auto 0.9 X10*3/uL (1.2-4.9); Lymphocytes Percent Auto 12.1 % (20-40); Mean Corpuscular HGB Conc 34.6 g/dl (31.0-35.0); Mean Corpuscular Hemoglobin 30.7 pg (27.0-33.0); Mean Corpuscular Volume 88.8 fL (80.0-98.0); Mean Platelet Volume 8.7 fL (9.4-12.3); Monocytes Absolute Auto 0.6 X10*3/uL (0.1-1.2); Monocytes Percent Auto 8.5 % (2-11); Neutrophils Percent Auto 69.7 % (45-73); Platelet Count 239 X10*3/uL (160-400); Red Blood Count 4.01 X10*6/uL (4.20-5.50); Red Cell Distribution Width 13.8 % (11.0-16.0); White Blood Count 7.1 X10*3/uL (4.8-10.8)
[2023-12-29 20:42] LABS: INTERNATIONAL NORM RATIO 1.1 (0.9-1.1); Prothrombin Time 13.5 SEC (11.1-13.3)
[2023-12-29 20:52] LABS: Alanine Aminotransferase 13 U/L (0-31); Albumin Level 3.4 g/dL (3.5-5.0); Alkaline Phosphatase 66 U/L (39-117); Anion Gap 11 (12-20); Aspartate Amino Transferase 22 U/L (5-31); Bilirubin Total 0.2 mg/dL (0.0-1.0); Blood Urea Nitrogen 21 mg/dL (9-16); Calcium 9.1 mg/dL (8.4-10.2); Carbon Dioxide 28 mmol/L (22-29); Chloride 101 mmol/L (96-108); Estimated Glomerular Filt Rate > 60; Glucose Random 98 mg/dL (60-115); Potassium 4.3 mmol/L (3.3-5.1); Sodium 136 mmol/L (135-145); Total Protein 6.4 g/dL (6.5-8.0)
[2023-12-29 20:57] LABS: Appearance Urine Clear; Color Urine Yellow; Glucose Urine UA Negative (Negative); Leukocyte Esterase Urine Negative (Negative); Nitrite Urine Negative (Negative); PH 7.5 (5.0-9.0); Urine Blood Negative (Negative); Urine Ketones Negative (Negative); Urine Protein Negative (Neg-Trace)
[2023-12-29 21:00] LABS: Troponin-I High Sensitivity < 2.7 ng/L (<3.5-17.0)
--- NOTE | 2023-12-29 21:04 | PC.NURSE ---
Family at bedside, spoke to them about event's precipitating admission to ED, patients current mental status, son notes R side of patient's face at [facility] looked significantly drooped, looks better now but still very slightly drooped. Family noted patient was confused and had significant amount of difficulty opening her door at [facility], patient's current mental status is at their normal.
[2023-12-29 22:05] VITALS: BP 155/70; PULSE 69; RESP 18; TEMP 36.7; O2SAT 95
--- NOTE | 2023-12-30 00:48 | ED.NEUROSD ---
HPI - Neuro Symptoms/Deficit General Chief Complaint: Neuro Symptoms/Deficit Stated Complaint: General weakness Time Seen by Provider: 12/30/23 00:22 Source: patient, family and EMS Mode of arrival: EMS Limitations: no limitations History of Present Illness ED Provider: Dr. Helga Miramontes HPI Narrative: Patient comes to the emergency room from assisted living. According to the patient, she has been having intermittent episodes of feeling confused. Patient states that this has never happened before. Today, patient had difficulty operating the phone, could not figure out how to do it. Then, patient had trouble opening the door. Seems that patient kept reaching over to the handle without actually touching it, until eventually she was able to open the door Related Data Home Medications ?Medication ?Instructions ?Recorded ?Confirmed folic acid 1 mg tablet 1 mg PO DAILY 02/13/20 12/28/23 hydroxychloroquine 200 mg tablet 200 mg PO DAILY 02/13/20 12/28/23 methotrexate sodium (PF) 25 mg/mL mg subcut 02/13/20 12/28/23 injection solution levothyroxine 50 mcg tablet 50 mcg PO DAILY 06/22/22 12/28/23 metoprolol succinate 25 mg 25 mg PO DAILY 06/22/22 12/28/23 tablet,extended release 24 hr nebulizers 06/22/22 12/28/23 acetaminophen 325 mg capsule 325 mg PO QID PRN 07/04/22 12/28/23 (Tylenol) calcium carbonate (Calcium 500) 1,200 mg PO DAILY 07/04/22 12/28/23 Previous Rx's ?Medication ?Instructions ?Recorded ipratropium bromide 0.02 % See Rx Instructions inhalation 04/08/22 solution for inhalation DAILY #30 ea budesonide-formoterol HFA 160 2 puff PO BID 30 days #10.2 grams 12/28/22 mcg-4.5 mcg/actuation aerosol inhaler levalbuterol tartrate 45 2 puff inhalation Q6H PRN 12/28/22 mcg/actuation aerosol inhaler shortness of breath or wheezing 30 (Xopenex HFA) days #15 grams albuterol sulfate 2.5 mg/3 mL 2.5 mg (3 mL) inhalation Q6H PRN 02/06/23 (0.083 %) solution for nebulization shortness of breath or wheezing 30 days #180 mL hydrocortisone 1 % topical cream 1 appl topical QID PRN skin 06/23/23 (Anti-Itch (hydrocortisone)) irritation 7 days #28.4 grams primidone 50 mg tablet 25 mg (1/2 x 50 mg) PO BEDTIME 90 12/28/23 days #90 tabs Allergies Allergy/AdvReac Type Severity Reaction Status Date / Time Opiates Allergy Intermediate Itch and Uncoded 12/29/23 20:12 Hives Review of Systems Review of Systems: Constitutional : No Weight loss, No Fever, No Chills, No Night Sweats, No Fatigue, No Malaise ENT/Mouth : No Hearing loss, No Ear Pain, No Nasal Congestion, No Sinus Pain, No Hoarseness, No sore throat, No Rhinorrhea, No Swallowing Difficulty Eyes: No Eye Pain, No Swelling, No Redness, No Foreign Body, No Discharge, No Vision Changes Cardiovascular : No Chest Pain, No SOB, No Dyspnea on Exertion, No Orthopnea, No Edema, No Palpitations Respiratory : No Cough, No Sputum, No Wheezing, No Smoke Exposure, No Dyspnea Gastrointestinal : No Nausea, No Vomiting, No Diarrhea, No Constipation, No abdominal Pain, No Hematochezia, No Melena Genitourinary : no irregular bleeding, No Dysuria, No Urinary Frequency, No Hematuria, No Urinary Incontinence, No Urgency, No Flank Pain, No Urinary Flow Changes, No Hesitancy Musculoskeletal : No joint pain, No Myalgias, No Joint Swelling Skin : No Skin Lesions, No rash Neuro : No Weakness, No Numbness, No Paresthesias, No Loss of Consciousness, No Dizziness, No Headache, complaining of intermittent episodes of altered mental status/confusion Psych : No Anxiety/Panic, No Depression, No SI/HI/AH/VH, No Social Issues, Heme/Lymph: No Bruising, No Bleeding,No Lymphadenopathy Endocrine : No Polyuria, No Polydipsia, No Temperature Intolerance PMFSH Past Medical History Medical History Pneumonia Chronic cough Bronchiolitis Pulmonary nodules Atelectasis Asthma-COPD overlap syndrome Surgical History Hx of neck surgery History of back surgery H/O: hysterectomy Hx of appendectomy Family History Family History Father Heart disease Lung disease Dementia Son Epilepsy Social History Social History Alcohol intake: never Patient Tobacco Use Status: Former Tobacco user Tobacco use type: Cigarette Cigarette Packs Per Day: 1 Years Smoked: 4 Smoked in Last 30 Days: No Use of substances other than those prescribed or required for medical reasons: No Advance Directives: No Advance Directives Information Provided: No Do you have a plan to hurt others: No Plan Physical Exam Vital Signs: Vital Signs: Last Vital Signs Temp 98.0 F 12/29/23 22:05 Pulse 69 12/29/23 22:05 Resp 18 12/29/23 22:05 BP 155/70 H 12/29/23 22:05 Pulse Ox 95 12/29/23 22:05 O2 Del Method Room Air 12/29/23 22:05 BMI result Body Mass Index 17.5 Const: Other: Appearance: Alert. Oriented X3. No acute distress. Eyes: Pupils equal, round and reactive to light. ENT: Pharynx normal. Neck: Normal inspection. Neck supple. No lymph nodes noted. No crepitus CVS: Normal heart rate and rhythm. Pulses normal. Normal S1 and S2 Respiratory: No respiratory distress. Breath sounds normal. No Wheezing. No rales Abdomen: Soft and nontender. No rigidity. No distention. Skin: Skin warm and dry. Normal skin color. Normal skin turgor. Extremities: No lower extremity edema. No Lacerations. No Rash Neuro: Oriented X 3. No motor deficit. No sensory deficit. Moving all extremities. No slurred speech. CN 2 through 12 grossly intact Psych: calm, cooperative, normal affect Medical Decision Making Medical Decision Making MDM Narrative: My interpretation of labs: Normal hematology and chemistry, UA negative. -I discussed with the patient that ideally we should get a CT scan to see if she is having intermittent TIAs, or there are old lacunar infarcts. Patient states that to her knowledge she has never been told she has had TIAs or old infarcts. Patient agrees to stay for a CT scan. At this time, patient feels otherwise well. Asymptomatic My interpretation of CT scan, no obvious abnormality. No intracranial bleed. Differential Diagnosis Differential Diagnoses: The differential diagnosis associated with the presentation includes (TIA, CVA, dementia, UTI) Admission/Observation Consideration of admission/observation: Escalation of care including admission/observation considered (Given patient's set of complaints, observation was considered) Lab Data MDM Lab Attestation statement: I reviewed the patient's lab results. 12/29/23 20:29 12/29/23 20:29 Labs: Lab Results 12/29/23 12/29/23 Range/Units 20:29 20:51 WBC 7.1 (4.8-10.8) X10*3/uL RBC 4.01 L (4.20-5.50) X10*6/uL Hgb 12.3 (12.0-16.0) g/dl Hct 35.6 L (37.0-47.0) % MCV 88.8 (80.0-98.0) fL MCH 30.7 (27.0-33.0) pg MCHC 34.6 (31.0-35.0) g/dl RDW 13.8 (11.0-16.0) % Plt Count 239 (160-400) X10*3/uL MPV 8.7 L (9.4-12.3) fL Immature Gran % (Auto) 0.4 (0.0-0.4) % Neut % (Auto) 69.7 (45-73) % Lymph % (Auto) 12.1 L (20-40) % [place] % (Auto) 8.5 (2-11) % Eos % (Auto) 8.7 H (0-4) % Baso % (Auto) 0.6 (0-2) % Lymph # (Auto) 0.9 L (1.2-4.9) X10*3/uL [place] # (Auto) 0.6 (0.1-1.2) X10*3/uL Eos # (Auto) 0.6 H (0.0-0.4) X10*3/uL Baso # (Auto) 0.0 (0.0-0.2) X10*3/uL Abs Immat Gran (auto) 0.03 (0.00-0.03) X10*3/uL Absolute Neuts (auto) 5.0 (2.0-8.3) x10*3/uL Absolute Nucleated RBC 0.000 (0.0-0.012) X10*3/uL Nucleated RBC % (auto) 0.0 (0.0-0.2) /100WBC PT 13.5 H (11.1-13.3) SEC INR 1.1 (0.9-1.1) Sodium 136 (135-145) mmol/L Potassium 4.3 (3.3-5.1) mmol/L Chloride 101 (96-108) mmol/L Carbon Dioxide 28 (22-29) mmol/L Anion Gap 11 L (12-20) BUN 21 H (9-16) mg/dL Creatinine 0.76 (0.5-1.4) mg/dL Estim Creat Clear Calc 41.0 Estimated GFR > 60 Random Glucose 98 (60-115) mg/dL Calcium 9.1 (8.4-10.2) mg/dL Magnesium 2.0 (1.6-2.6) mg/dL Total Bilirubin 0.2 (0.0-1.0) mg/dL AST 22 (5-31) U/L ALT 13 (0-31) U/L Alkaline Phosphatase 66 (39-117) U/L Troponin I High Sens < 2.7 (<3.5-17.0) ng/L Total Protein 6.4 L (6.5-8.0) g/dL Albumin 3.4 L (3.5-5.0) g/dL Urine Color Yellow Urine Appearance Clear Urine pH 7.5 (5.0-9.0) Ur Specific [place] 1.010 (1.005-1.025) Urine Protein Negative (Neg-Trace) mg/dL Urine Glucose (UA) Negative (Negative) mg/dL Urine Ketones Negative (Negative) mg/dL Urine Blood Negative (Negative) Urine Nitrite Negative (Negative) Ur Leukocyte Esterase Negative (Negative) Independent Interpretation I performed an independent interpretation of an: CT Scan Interpretation: There is no evidence of acute intracranial hemorrhage or territorial infarction. No abnormal mass-effect or midline shift is seen. Andrews to white matter differentiation is well preserved. No extra-axial fluid collections are identified. The ventricles are normal in size. There is moderate periventricular white matter hypoattenuation consistent with chronic small vessel ischemic disease. Mild volume loss is noted. The osseous structures and soft tissues are normal. Partial opacification of the left sphenoid sinus. The mastoid air cells are well-aerated. CT/CT head/brain wo IV con IMPRESSION: No acute intracranial pathology. Chronic small vessel ischemic disease and volume loss. Independent Historian Clinical information obtained from an independent historian. History obtained from or confirmed by: Other (Patient's sons) Critical Care Time Critical Care Time Critical Care Time: Yes Total Critical Care Time: 30 Attestation: I have personally provided critical care time. Time includes review of lab data, radiology results, discussion with consultants, and monitoring for potential decompensation. Intervention performed as documented. Discharge Plan Discharge Clinical Impression: Acute confusion Patient Disposition: Home, Self-Care Instructions: Altered Mental Status (ED) Additional Instructions: Please follow-up with your primary care physician tomorrow. If you have any worsening or new symptoms, please return to the emergency room or call 911 Prescriptions: No Action ipratropium bromide 0.02 % solution See Rx Instructions inhalation DAILY Qty: 30 11RF Rx Instructions: 1 vial inhaled daily; albuterol sulfate 2.5 mg /3 mL (0.083 %) solution for nebulization 2.5 mg inhalation Q6H PRN (Reason: shortness of breath or wheezing) 30 Days Qty: 180 11RF methotrexate sodium (PF) 25 mg/mL solution subcut folic acid 1 mg tablet 1 mg PO DAILY hydroxychloroquine 200 mg tablet 200 mg PO DAILY metoprolol succinate 25 mg tablet extended release 24 hr 25 mg PO DAILY levothyroxine 50 mcg tablet 50 mcg PO DAILY (DME) nebulizers Misc See Rx Instructions .Route Rx Instructions: As directed calcium carbonate [Calcium 500] 500 mg calcium (1,250 mg) tablet,chewable 1,200 mg PO DAILY acetaminophen [Tylenol] 325 mg capsule 325 mg PO QID PRN levalbuterol tartrate [Xopenex HFA] 45 mcg/actuation HFA aerosol inhaler 2 puff inhalation Q6H PRN (Reason: shortness of breath or wheezing) 30 Days Qty: 15 11RF budesonide-formoterol 160-4.5 mcg/actuation HFA aerosol inhaler 2 puff PO BID 30 Days Qty: 10.2 11RF hydrocortisone [Anti-Itch (HC)] 1 % cream 1 appl topical QID PRN (Reason: skin irritation) 7 Days Qty: 28.4 1RF primidone 50 mg tablet 25 mg PO BEDTIME 90 Days Qty: 90 1RF Rx Instructions: May take extra 1/2 tab per day prn tremor Print Language: Upper Sorbian
[2023-12-30 03:02] VITALS: BP 112/70; PULSE 66; RESP 16; TEMP 36.4; O2SAT 96
== END 2023-12-30 03:11 | disposition home or self-care (01) ==
PROVIDERS: Emergency Provider Emergency Medicine; PCP Student in an Organized Health Care Education/Training Program
DX: R41.0 Disorientation, unspecified (principal); F09 Unspecified mental disorder due to known physiological condition; J45.909 Unspecified asthma, uncomplicated; Z79.899 Other long term (current) drug therapy
CPT/HCPCS: 36415; 70450; 80053; 81003; 83735; 84484; 85025; 85610; 93005; 99285

== ENCOUNTER 2023-12-30 09:27 | Inpatient (IN) | payer MEDICARE, SELFPAY ==
[2023-12-30] VITALS (7 sets, daily range): BP systolic 127–167; BP diastolic 56–67; PULSE 71–87; RESP 16–18; TEMP 36.4–36.6; O2SAT 94–97; BMI 15.6
--- NOTE | ~2023-12-30 | MR_ITS ---
EXAMINATION: MR BRAIN WITHOUT CONTRAST CLINICAL INFORMATION: Right hand weakness. Facial droop. COMPARISON: CT imaging from 12/30/2023. TECHNIQUE: Multiplanar, multisequence imaging of the brain was performed without contrast. FINDINGS: There is a 1.1 x 2 cm focal acute infarct in the left frontal centrum semiovale without hemorrhagic transformation. An additional punctate focus of diffusion signal abnormality is also visible in the posterior left parietal cortical juarez matter. There is generalized brain parenchymal volume loss and mild ex vacuo dilatation of the ventricles. No mass effect or midline shift is seen. Moderate chronic small vessel ischemic changes present in the cerebral white matter and brainstem. No extra-axial fluid collections are seen. The craniovertebral junction, marrow signal, and midline structures are normal. The cerebellum is normal. The major intracranial flow voids at the level of the pilot point of [place] are preserved. The dural venous sinus flow voids are maintained. The mastoid air cells are well aerated. Small proteinaceous retention cyst in the left sphenoid sinus mucosal thickening. MR/MR head/brain wo con IMPRESSION: Focal acute infarct in the left frontal centrum semiovale. Additional punctate acute infarct in the cortical juarez matter of the posterior left parietal lobe. No mass effect or hemorrhagic transformation. Moderate chronic white matter microangiopathy and generalized brain parenchymal volume loss. Electronically signed by: Ricardo Coker MD 12/30/2023 04:06 PM EDT
--- NOTE | ~2023-12-30 | CT_ITS ---
EXAMINATION: CT ANGIOGRAM HEAD CT ANGIOGRAM NECK CLINICAL INFORMATION: Right hand numbness. Facial droop. COMPARISON: CT head from 12/30/2023. TECHNIQUE: Initial noncontrast feather washer imaging of the head and neck was performed. Comparison is made with noncontrast head CT from earlier today. Test bolus sequences followed by intravenous administration 70 mL of Omnipaque 350. Helical imaging was performed in the axial plane from the aortic arch to the skull vertex. Delayed postcontrast imaging of the head was also performed. The data was processed at the survey technologist's workstation for generation of MIP sequences. Angled MIPs and volume rendered reformatted images were also generated at an offline 3D workstation. Stenoses are assessed in accordance with NASCET criteria unless otherwise indicated. This CT examination was performed using dose optimization techniques as appropriate, variously including the following: *Automated exposure control. *Adjustment of mA and/or kV according to patient size (this includes techniques or standardized protocols for targeted exams where dose is matched to indication/reason for exam; i.e. extremities or head). *Use of iterative reconstruction technique. DLP: 1418 mGy-cm FINDINGS: CT Head: There is no evidence of acute intracranial hemorrhage or edematous territorial infarction. Andrews-white matter differentiation is preserved. Scattered and partially confluent hypoattenuation in the periventricular and deep white matter are consistent with moderate microangiopathy. Proportional prominence of the ventricles and sulcal spaces without evidence of obstructive hydrocephalus. No abnormal mass effect or midline shift. No extra-axial fluid collections. No pathologic intra-axial enhancement. No acute soft tissue or osseous abnormalities. Mild mucosal thickening of the paranasal sinuses. The mastoid air cells and middle ear cavities are clear. CT Neck: Moderate heterogeneous enlargement of the left thyroid lobe. The remaining cervical soft tissues are within normal limits. Instrument directed anterior fusion of C5-C7. Mild reversal of normal cervical lordosis centered at C4. Moderate degenerative supine anterolisthesis of C2-C4. Facet and uncovertebral joint arthropathy leads to osseous encroachment on the neural foramina from C2-C6. CT Upper Chest: Mild bronchiectasis in the visualized right upper lung. Minimal multifocal mucous plugging of the chest upper lobe bronchi. Otherwise, the visualized lung apices and upper mediastinum are within normal limits. Neck CTA: Aortic Arch: Normal contour and caliber with moderate calcific atherosclerotic disease. Classic 3 vessel branching pattern of the aortic arch. Great Vessel Origins: No significant stenosis of the branch origins. Right Common Carotid Artery: No focal stenosis or occlusion. Cervical Right Internal Carotid Artery: Calcific atherosclerotic disease of the carotid bulb and proximal internal carotid artery causing less than 50% stenosis. Undulating appearance of the rossi consistent with underlying fibromuscular dysplasia. Left Common Carotid Artery: No focal stenosis or occlusion. Cervical Left Internal Carotid Artery: Mixed fibrofatty and calcific atherosclerotic disease of the carotid bulb and proximal internal carotid artery causing less than 50% stenosis. Undulating appearance of the rossi consistent with underlying fibromuscular dysplasia. Cervical Right Vertebral Artery: Co-dominant. Atherosclerotic disease causes mild stenosis of the origin. No additional focal stenosis or occlusion. Cervical Left Vertebral Artery: Co-dominant. Atherosclerotic disease causes mild stenosis of the origin. No additional focal stenosis or occlusion. Brain CTA: Intracranial Internal Carotid Arteries: Calcific atherosclerotic disease of the intracranial internal carotid arteries without occlusion or flow-limiting stenosis. Right Anterior Cerebral Artery: Normal A1 segment. Normal opacification of the distal ANAM segments. Left Anterior Cerebral Artery: Normal A1 segment. Normal opacification of the distal ANAM segments. Anterior Communicating Artery: Normal. Right Middle Cerebral Artery: Normal M1 segment of the MCA without focal stenosis or occlusion. Normal arborization of the distal segments. Left Middle Cerebral Artery: Normal M1 segment of the MCA without focal stenosis or occlusion. Normal arborization of the distal segments. Right Vertebral Artery: Normal V4 segment. Normal opacification of the proximal segments of the posterior inferior cerebellar artery. Left Vertebral Artery: Normal V4 segment. Normal opacification of the proximal segments of the posterior inferior cerebellar artery. Basilar Artery: Normal without focal stenosis or occlusion. Normal appearance of the proximal superior cerebellar arteries. Right Posterior Cerebral Artery: Normal P1 segment. Normal opacification of the distal ALTERATIONS MANAGER segments. Left Posterior Cerebral Artery: Normal P1 segment. Normal opacification of the distal ALTERATIONS MANAGER segments. Normal opacification of the superior sagittal, straight, transverse, and sigmoid sinuses. CT/CT angio head neck IMPRESSION: 1. No evidence of acute intracranial hemorrhage or edematous territorial infarction. Moderate underlying microangiopathy and generalized cerebral volume loss. 2. CTA of the head and neck without proximal occlusion or flow-limiting stenosis. 3. Undulating appearance of the rossi of the cervical ICAs bilaterally consistent with underlying fibromuscular dysplasia. 4. Moderate heterogeneous enlargement of the left thyroid lobe he recommend further characterization with thyroid ultrasound. This critical result was discussed with EDGAR Hendricks at 12:06 on 12/30/2023 and it was ascertained that the content and urgency of the report was understood at the time of direct communication. Electronically signed by: Jg Feng DO 12/30/2023 12:16 PM EDT
--- NOTE | ~2023-12-30 | CT_ITS ---
EXAMINATION: CT HEAD WITHOUT CONTRAST (STROKE PROTOCOL) CLINICAL INFORMATION: Stroke protocol. Right-sided weakness. Facial droop. COMPARISON: Head CT earlier this morning and brain MRI February 02, 2023 TECHNIQUE: Contiguous axial imaging was performed from the skull base to vertex without intravenous administration of contrast. This CT examination was performed using dose optimization techniques as appropriate, variously including the following: *Automated exposure control *Adjustment of mA and/or kV according to patient size (this includes techniques or standardized protocols for targeted exams where dose is matched to indication/reason for exam; i.e. extremities or head) *Use of iterative reconstruction technique DLP: 598 mGy-cm FINDINGS: There is no evidence of acute intracranial hemorrhage or territorial infarction. No abnormal mass effect or midline shift is appreciated. Andrews-white differentiation is well preserved. No extra-axial fluid collections. The ventricular system and cortical sulci are prominent, consistent with age-appropriate volume loss. There are areas of low density in the periventricular and subcortical white matter, most consistent with sequelae of microvascular ischemic change. Soft tissues and osseous structures are unremarkable. . Mild mucosal thickening of the sphenoid sinus. Other visualized paranasal sinuses and mastoid air cells are well aerated. CT/CT head for STROKE IMPRESSION: Chronic microvascular ischemic changes with no CT evidence of acute intracranial abnormality. This critical result was discussed with EDGAR Hendricks at 11:42 AM hours on December 30, 2023. It was ascertained that the content and urgency of the report was understood at the time of direct communication. Electronically signed by: Lance Griffith MD 12/30/2023 11:44 AM EDT
--- NOTE | 2023-12-30 09:42 | ECG_ITS ---
Test Reason : NEURO Blood Pressure : / mmHG Vent. Rate : 080 BPM Atrial Rate : 080 BPM P-R Int : 162 ms QRS Dur : 118 ms QT Int : 384 ms P-R-T Axes : 076 050 051 degrees QTc Int : 442 ms Normal sinus rhythm Right bundle branch block Abnormal ECG When compared with ECG of 29-DEC-2023 20:28, No significant change was found Referred By: Generic ED Physician Electronically Signed By:STELLA CEDENO
[2023-12-30 10:06] LABS: MANUAL DIFF FLAG NO
[2023-12-30 10:09] LABS: Basophils Percent Auto 0.6 % (0-2); Eosinophils Absolute Auto 0.2 X10*3/uL (0.0-0.4); Eosinophils Percent Auto 3.2 % (0-4); Hemoglobin 13.5 g/dl (12.0-16.0); Imm Gran Abs Auto 0.01 X10*3/uL (0.00-0.03); Imm Gran Pct Auto 0.1 % (0.0-0.4); Lymphocytes Absolute Auto 0.7 X10*3/uL (1.2-4.9); Lymphocytes Percent Auto 9.9 % (20-40); Mean Corpuscular HGB Conc 34.6 g/dl (31.0-35.0); Mean Corpuscular Hemoglobin 30.5 pg (27.0-33.0); Monocytes Absolute Auto 0.5 X10*3/uL (0.1-1.2); Monocytes Percent Auto 7.2 % (2-11); Neutrophils Absolute Auto 5.4 x10*3/uL (2.0-8.3); Platelet Count 241 X10*3/uL (160-400); Red Blood Count 4.43 X10*6/uL (4.20-5.50); Red Cell Distribution Width 13.9 % (11.0-16.0); White Blood Count 6.8 X10*3/uL (4.8-10.8)
--- NOTE | 2023-12-30 10:19 | PC.NURSE ---
pt did not pass nursing swallow evaluation at this time. wet/gurgling/coughing noted throughout assessment. pt notified to remain NPO until told otherwise. provider notified/aware of pt failing the evaluation.
[2023-12-30 10:48] LABS: Alanine Aminotransferase 15 U/L (0-31); Albumin Level 3.4 g/dL (3.5-5.0); Alkaline Phosphatase 68 U/L (39-117); Anion Gap 12 (12-20); Aspartate Amino Transferase 26 U/L (5-31); Bilirubin Total 0.3 mg/dL (0.0-1.0); Blood Urea Nitrogen 20 mg/dL (9-16); Calcium 9.1 mg/dL (8.4-10.2); Carbon Dioxide 25 mmol/L (22-29); Chloride 101 mmol/L (96-108); Creatinine Clr Calc Pharmacy 36.8; Estimated Glomerular Filt Rate > 60; Glucose Random 164 mg/dL (60-115); Potassium 4.1 mmol/L (3.3-5.1); Sodium 134 mmol/L (135-145); Total Protein 6.7 g/dL (6.5-8.0)
--- NOTE | 2023-12-30 10:52 | ED_ITS ---
<Statement entered by Cecilio Walton MD - 12/30/23 16:28> I saw this patient with the physician aquatics assistant department head. As far as I can determine the patient's last known well time was 18:00 yesterday evening. 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 Her speech is relatively preserved. She has some mild right arm weakness and right facial weakness. The patient is therefore not a thrombolytic candidate. Her NIH stroke scale is mild, about 4. There is no large vessel occlusion. Therefore there is no indication for acute intervention. The patient will be admitted to the hospitalist service for further care. HPI - Neuro Symptoms/Deficit General Chief Complaint: Neuro Symptoms/Deficit Stated Complaint: R hand arm numbness Time Seen by Provider: 12/30/23 10:52 Source: patient, family, EMS, RN notes reviewed and old records reviewed Mode of arrival: EMS Limitations: no limitations History of Present Illness ED Provider: Nasrin Howell PA-C HPI Narrative: 83 yo female with history of RA on MTX, asthma/COPD, pulmonary nodules, cognitive dysfunction who presents to the ER for re-evaluation of right hand heaviness. She states it feels like ?lead. ? She states she was here last night for the same. She presents with her family who help provide history. The patient lives alone, she has been in the process of moving, lifting boxes, and being under lot of stress. She denies any injury to her hand. She called her family for acute onset of her right hand ?not working right at about 07:00 o'clock last night. She had a hard time dealing the phone with her right hand and was unable to open the door with her right hand when family arrived. She came here where she had lab work and a CT scan. CT scan of her head was unremarkable. She was ultimately discharged home. Family reports this morning she had ongoing complaints about her right hand and they noticed a facial droop. She has had difficulty with ambulation since last night per their report. Patient denies any shortness of breath or chest pain. No nausea, vomiting, diarrhea. No abdominal pain. She has not had any vision changes. She denies any numbness or tingling. Onset (ago): hour(s) (16) Time: 19:00 Timing confirmed by: family member Location: right face, right arm and ataxia History of same: No Severity: moderate Quality: weak and constant Relieving factors: none Exacerbating factors: other (Movement) Context: sudden onset On Anticoagulants: No Associated symptoms: denies other symptoms Treatments Prior to Arrival: none Related Data Home Medications ?Medication ?Instructions ?Recorded ?Confirmed folic acid 1 mg tablet 1 mg PO DAILY 02/13/20 12/28/23 hydroxychloroquine 200 mg tablet 200 mg PO DAILY 02/13/20 12/28/23 methotrexate sodium (PF) 25 mg/mL mg subcut 02/13/20 12/28/23 injection solution levothyroxine 50 mcg tablet 50 mcg PO DAILY 06/22/22 12/28/23 metoprolol succinate 25 mg 25 mg PO DAILY 06/22/22 12/28/23 tablet,extended release 24 hr nebulizers 06/22/22 12/28/23 acetaminophen 325 mg capsule 325 mg PO QID PRN 07/04/22 12/28/23 (Tylenol) calcium carbonate (Calcium 500) 1,200 mg PO DAILY 07/04/22 12/28/23 Previous Rx's ?Medication ?Instructions ?Recorded ipratropium bromide 0.02 % See Rx Instructions inhalation 04/08/22 solution for inhalation DAILY #30 ea budesonide-formoterol HFA 160 2 puff PO BID 30 days #10.2 grams 12/28/22 mcg-4.5 mcg/actuation aerosol inhaler levalbuterol tartrate 45 2 puff inhalation Q6H PRN 12/28/22 mcg/actuation aerosol inhaler shortness of breath or wheezing 30 (Xopenex HFA) days #15 grams albuterol sulfate 2.5 mg/3 mL 2.5 mg (3 mL) inhalation Q6H PRN 02/06/23 (0.083 %) solution for nebulization shortness of breath or wheezing 30 days #180 mL hydrocortisone 1 % topical cream 1 appl topical QID PRN skin 06/23/23 (Anti-Itch (hydrocortisone)) irritation 7 days #28.4 grams primidone 50 mg tablet 25 mg (1/2 x 50 mg) PO BEDTIME 90 12/28/23 days #90 tabs Allergies Allergy/AdvReac Type Severity Reaction Status Date / Time Opiates Allergy Intermediate Itch and Uncoded 12/30/23 09:37 Hives Review of Systems 2 Review of Systems: Yes all other systems are reviewed and are negative PMFSH Past Medical History Medical History Pneumonia Chronic cough Bronchiolitis Pulmonary nodules Atelectasis Asthma-COPD overlap syndrome Surgical History Hx of neck surgery History of back surgery H/O: hysterectomy Hx of appendectomy Family History Family History Father Heart disease Lung disease Dementia Son Epilepsy Social History Social History Alcohol intake: never Patient Tobacco Use Status: Former Tobacco user Tobacco use type: Cigarette Cigarette Packs Per Day: 1 Years Smoked: 4 Smoked in Last 30 Days: No Use of substances other than those prescribed or required for medical reasons: No Advance Directives: Yes Advance Directives Information Provided: No Advance Directives on File: No Do you have a plan to hurt others: No Plan Physical Exam 2 Vital Signs: Vital Signs: Last Vital Signs Temp 97.9 F 12/30/23 11:19 Pulse 79 12/30/23 11:19 Resp 16 12/30/23 11:19 BP 167/67 H 12/30/23 11:19 Pulse Ox 95 12/30/23 11:19 O2 Del Method Room Air 12/30/23 11:19 BMI result Body Mass Index 15.6 Appearance: Alert frail elderly female sitting up in bed. Oriented X3. No acute distress. Head/face: normocephalic, atraumatic. Face is asymmetric with right-sided facial droop Eyes: Pupils equal, round and reactive to light. Extraocular movements are intact. No nystagmus no visual field deficits ENT: Pharynx normal. No tonsillar swelling or exudate. Neck: Normal inspection. Neck supple. CVS: Normal heart rate and rhythm. Pulses normal. Respiratory: No respiratory distress. Breath sounds normal. Abdomen: Soft and nontender. +BS x4 Skin: Skin warm and dry. Normal skin color. Normal skin turgor. No rashes. Extremities: No lower extremity edema. No joint swelling. Neuro/psych: Oriented X 3. Patient has slightly weak prototype special build strength in the right hand. Mild weakness against gravity in her right upper extremity. No pronator drift. Strength is equal and symmetrical in the lower extremities. Mild dysarthria, sensation is equal and symmetrical throughout, intact Medications Administered Discontinued Medications Generic Name Dose Route Start Last Admin Trade Name Sj PRN Reason Stop Dose Admin Iohexol 70 ml 12/30/23 11:42 12/30/23 11:43 Iohexol 350 Mg/Ml 100 Ml Infus..Btl IV 12/30/23 11:43 70 ml ONCE ONE Administration Medical Decision Making Medical Decision Making [facility] Narrative: 83-year-old female with history of asthma/COPD, rheumatoid arthritis on methotrexate who presents to the ER for evaluation of right hand heaviness and right-sided facial droop that she states started last night around 19:00. Her last known well was around 18:00 last evening. She did come here last night complaining of confusion. She had a dry CT of the head that was unremarkable. She states she wanted to leave and go home, she states the in the room surrounding her very loud and she was unable to sleep. She was discharged at 03:00. She states she woke up this morning with ongoing right hand. NIH is 5. Not a TNK candidate. Concern for CVA. CTA of the head and neck did not show any large vessel occlusions. evaluated the patient at the bedside as well. Patient failed swallow evaluation. Will plan to admit for further evaluation of right-sided deficits. Differential Diagnosis Differential Diagnoses: The differential diagnosis associated with the presentation includes Large vessel occlusion, acute stroke, Bolanos's palsy, TIA Admission/Observation Consideration of admission/observation: Escalation of care including admission/observation considered Consult Healthcare Provider Management of the patient was discussed with: Hospitalist Lab Data [facility] Lab Attestation statement: I reviewed the patient's lab results. 12/30/23 10:02 12/30/23 10:23 Labs: Lab Results 12/30/23 12/30/23 12/30/23 Range/Units 10:02 10:23 11:15 WBC 6.8 (4.8-10.8) X10*3/uL RBC 4.43 (4.20-5.50) X10*6/uL Hgb 13.5 (12.0-16.0) g/dl Hct 39.0 (37.0-47.0) % MCV 88.0 (80.0-98.0) fL MCH 30.5 (27.0-33.0) pg MCHC 34.6 (31.0-35.0) g/dl RDW 13.9 (11.0-16.0) % Plt Count 241 (160-400) X10*3/uL MPV 9.0 L (9.4-12.3) fL Immature Gran % (Auto) 0.1 (0.0-0.4) % Neut % (Auto) 79.0 H (45-73) % Lymph % (Auto) 9.9 L (20-40) % [place] % (Auto) 7.2 (2-11) % Eos % (Auto) 3.2 (0-4) % Baso % (Auto) 0.6 (0-2) % Lymph # (Auto) 0.7 L (1.2-4.9) X10*3/uL [place] # (Auto) 0.5 (0.1-1.2) X10*3/uL Eos # (Auto) 0.2 (0.0-0.4) X10*3/uL Baso # (Auto) 0.0 (0.0-0.2) X10*3/uL Abs Immat Gran (auto) 0.01 (0.00-0.03) X10*3/uL Absolute Neuts (auto) 5.4 (2.0-8.3) x10*3/uL Absolute Nucleated RBC 0.000 (0.0-0.012) X10*3/uL Nucleated RBC % (auto) 0.0 (0.0-0.2) /100WBC PT 12.7 (11.1-13.3) SEC Whole Blood PT (11.1-13.5) sec INR 1.0 (0.9-1.1) Whole Blood INR (0.9-1.1) APTT 35.7 (26.0-36.8) SEC Sodium 134 L (135-145) mmol/L Potassium 4.1 (3.3-5.1) mmol/L Chloride 101 (96-108) mmol/L Carbon Dioxide 25 (22-29) mmol/L Anion Gap 12 (12-20) BUN 20 H (9-16) mg/dL Creatinine 0.75 (0.5-1.4) mg/dL Estim Creat Clear Calc 36.8 Estimated GFR > 60 POC Glucose (60-115) mg/dL Random Glucose 164 H (60-115) mg/dL Calcium 9.1 (8.4-10.2) mg/dL Total Bilirubin 0.3 (0.0-1.0) mg/dL AST 26 (5-31) U/L ALT 15 (0-31) U/L Alkaline Phosphatase 68 (39-117) U/L Total Protein 6.7 (6.5-8.0) g/dL Albumin 3.4 L (3.5-5.0) g/dL 12/30/23 12/30/23 Range/Units 11:20 11:21 WBC (4.8-10.8) X10*3/uL RBC (4.20-5.50) X10*6/uL Hgb (12.0-16.0) g/dl Hct (37.0-47.0) % MCV (80.0-98.0) fL MCH (27.0-33.0) pg MCHC (31.0-35.0) g/dl RDW (11.0-16.0) % Plt Count (160-400) X10*3/uL MPV (9.4-12.3) fL Immature Gran % (Auto) (0.0-0.4) % Neut % (Auto) (45-73) % Lymph % (Auto) (20-40) % [place] % (Auto) (2-11) % Eos % (Auto) (0-4) % Baso % (Auto) (0-2) % Lymph # (Auto) (1.2-4.9) X10*3/uL [place] # (Auto) (0.1-1.2) X10*3/uL Eos # (Auto) (0.0-0.4) X10*3/uL Baso # (Auto) (0.0-0.2) X10*3/uL Abs Immat Gran (auto) (0.00-0.03) X10*3/uL Absolute Neuts (auto) (2.0-8.3) x10*3/uL Absolute Nucleated RBC (0.0-0.012) X10*3/uL Nucleated RBC % (auto) (0.0-0.2) /100WBC PT (11.1-13.3) SEC Whole Blood PT 12.7 (11.1-13.5) sec INR (0.9-1.1) Whole Blood INR 1.1 (0.9-1.1) APTT (26.0-36.8) SEC Sodium (135-145) mmol/L Potassium (3.3-5.1) mmol/L Chloride (96-108) mmol/L Carbon Dioxide (22-29) mmol/L Anion Gap (12-20) BUN (9-16) mg/dL Creatinine (0.5-1.4) mg/dL Estim Creat Clear Calc Estimated GFR POC Glucose 100 (60-115) mg/dL Random Glucose (60-115) mg/dL Calcium (8.4-10.2) mg/dL Total Bilirubin (0.0-1.0) mg/dL AST (5-31) U/L ALT (0-31) U/L Alkaline Phosphatase (39-117) U/L Total Protein (6.5-8.0) g/dL Albumin (3.5-5.0) g/dL Independent Interpretation I performed an independent interpretation of an: EKG and CT Scan Interpretation: EKG with normal sinus rhythm, right bundle-branch block, ventricular rate 80 beats per minute, no significant change from yesterday, no ST segment elevations or depressions. Dry CT head without any acute territorial infarct appreciated, no bleed or edema, agree with radiology read Radiology Impression Discussion of test interpretation with radiology: I discussed test interpretation with the radiologist and I have reviewed the radiologist's reading. Radiologist Impression: CT/CT angio head neck IMPRESSION: 1. No evidence of acute intracranial hemorrhage or edematous territorial infarction. Moderate underlying microangiopathy and generalized cerebral volume loss. 2. CTA of the head and neck without proximal occlusion or flow-limiting stenosis. 3. Undulating appearance of the rossi of the cervical ICAs bilaterally consistent with underlying fibromuscular dysplasia. 4. Moderate heterogeneous enlargement of the left thyroid lobe he recommend further characterization with thyroid ultrasound. Independent Historian Clinical information obtained from an independent historian. History obtained from or confirmed by: Other (Adult family members at the bedside) External Record Review External record reviewed: Outpatient record, Prior outpatient labs and Prior outpatient radiology Prescription Management I considered prescription management with: Other (Aspirin and statin) Chronic Conditions Patient?s care impacted by: Other (Asthma/COPD, RA) NIH Stroke Scale Internal: Initial- Upon Arrival Time: 11:16 Level of Consciousness: Alert Level of Consciousness Questions: Answers both questions correctly Level of Consciousness Commands: Performs both tasks correctly Best Gaze: Normal Visual: No visual loss Facial Palsy: Partial paralysis Motor Arm (Right): No drift Motor Arm (Left): No drift Motor Leg (Right): No drift Motor Leg (Left): No drift Limb Ataxia: Present in one limb Sensory: Normal Best Language: No aphasia Dysarthia: Mild to moderate dysarthria Extinction and Inattention: No abnormality Score: 4 Critical Care Time Critical Care Time Critical Care Time: Yes Total Critical Care Time: 42 Attestation: I have personally provided critical care time exclusive of time spent on separately billable procedures. Time includes review of lab data, radiology results, discussion with consultants, and monitoring for potential decompensation. Intervention performed as documented. Discharge Plan Discharge Clinical Impression: Right hand weakness, Facial droop Patient Disposition: Admitted As Inpatient Print Language: Albanian
--- NOTE | 2023-12-30 11:18 | PC.NURSE ---
stroke protocol initialed by EDGAR. pt currently being assessed by ED MD. another 18gIV placed in the left forearm - labs obtained/sent to lab. PT/INR performed by tech. vital signs stable and up to date. nsr on the roofer assistant. plan of care ongoing.
[2023-12-30 11:29] LABS: Glucose, Whole Blood 100 mg/dL (60-115)
[2023-12-30 11:29] LABS: Prothrombin Time 12.7 SEC (11.1-13.3)
[2023-12-30 11:31] LABS: Partial Thromboplastin Time 35.7 SEC (26.0-36.8)
--- NOTE | 2023-12-30 11:36 | PC.NURSE ---
pt to CT at this time.
[2023-12-30] MEDS: iohexoL 350 MG/ML 100 ML INFUS..BTL 70 ML IV (11:43)
[2023-12-30 11:50] LABS: Prothrombin Time Whole Bld POC 12.7 sec (11.1-13.5); ~PT, ~INR - Anti Coag Clinic 1.1 (0.9-1.1)
--- NOTE | 2023-12-30 13:38 | PC.NURSE ---
MRI form filled out/faxed/placed in pt's chart.
--- NOTE | 2023-12-30 14:00 | P.HPHOSP_ITS ---
History of Present Illness Date of Service: 12/30/23 Chief Complaint: Hand weakness 83 yo female with history of RA on methotrexate, asthma/COPD, pulmonary nodules, cognitive dysfunction who presents to the ER for re-evaluation of right hand heaviness. She states it feels like ?lead. ? More recently the patient has been in the process of moving, lifting boxes. Apparently she has been under some stress due to this. She denied any trauma or injury. Apparently she spoke to a family member around 19:00 last night and told them that her hand was not working right. One family member arrived she was unable to open the door with her right hand. She presented to [facility] (formerly [facility] last evening, had a negative CT scan and charged home. She presented again with the same symptoms. She had a head CT and CTA both negative for any acute abnormalities. Family reported that they noted a facial droop as well and difficulty with ambulation since last night. Labs within acceptable limits, vital signs stable. Plan is to place patient in observation for possible TIA versus stroke Review of Systems 2 Review of Systems: Denies any recent fever chills or decrease in appetite respiratory denies any shortness of breath of breath cardiovascular denies chest pain gastrointestinal denies any dysphagia abdominal pain nausea vomiting or diarrhea genitourinary denies any dysuria frequency or hematuria musculoskeletal denies any joint pain or swelling neuropsych denies any weakness or seizures all other systems reviewed are negative [facility] Medical History Pneumonia Chronic cough Bronchiolitis Pulmonary nodules Atelectasis Asthma-COPD overlap syndrome Family History Father Heart disease Lung disease Dementia Son Epilepsy Surgical History Hx of neck surgery History of back surgery H/O: hysterectomy Hx of appendectomy Social History Alcohol intake: never Patient Tobacco Use Status: Former Tobacco user Tobacco use type: Cigarette Cigarette Packs Per Day: 1 Years Smoked: 4 Smoked in Last 30 Days: No Use of substances other than those prescribed or required for medical reasons: No Advance Directives: Yes Advance Directives Information Provided: No Advance Directives on File: No Do you have a plan to hurt others: No Plan Meds Allergies Allergy/AdvReac Type Severity Reaction Status Date / Time Opiates Allergy Intermediate Itch and Uncoded 12/30/23 09:37 Hives Active Medications: Current Medications Acetaminophen (Acetaminophen 325 Mg Tablet) 650 mg PO Q6H PRN PRN Reason: Pain, Mild (Pain Scale 1-3), fever or headache Calcium Carbonate (Calcium Carbonate 750 Mg Tab.Chew) 750 mg PO Q4H PRN PRN Reason: Heartburn Magnesium Hydroxide (Milk Of Magnesia 30 Ml Oral.Susp) 30 ml PO DAILY PRN PRN Reason: Constipation Melatonin (Melatonin 3 Mg Tablet) 6 mg PO BEDTIME PRN PRN Reason: Insomnia Sodium Chloride (0.9 % Sodium Chloride Flush 3 Ml Syringe) 3 [facility] Home Medications ?Medication ?Instructions ?Recorded ?Confirmed ?Last Taken ?Type folic acid 1 mg tablet 1 mg PO DAILY 02/13/20 12/30/23 12/29/23 History hydroxychloroquine 200 mg tablet 200 mg PO DAILY 02/13/20 12/30/23 12/29/23 History methotrexate sodium (PF) 25 mg/mL 12.5 mg subcut FR 02/13/20 12/30/23 Unknown History injection solution levothyroxine 50 mcg tablet 50 mcg PO DAILY 06/22/22 12/30/23 12/29/23 History metoprolol succinate 25 mg 25 mg PO DAILY 06/22/22 12/30/23 12/29/23 History tablet,extended release 24 hr nebulizers 06/22/22 12/28/23 Unknown History acetaminophen 325 mg capsule 325 mg PO QID PRN Pain 07/04/22 12/30/23 Unknown History (Tylenol) calcium carbonate (Calcium 500) 1,000 mg PO DAILY 07/04/22 12/30/23 12/29/23 History budesonide-formoterol HFA 160 2 puff PO DAILY 12/30/23 12/30/23 12/29/23 History mcg-4.5 mcg/actuation aerosol inhaler cholecalciferol (vitamin D3) 25 25 mcg PO DAILY 12/30/23 12/30/23 12/29/23 History mcg (1,000 unit) capsule Physical Exam 2 Vital Signs and Narrative: Vital Signs: Last Vital Signs Temp 97.7 F 12/30/23 13:06 Pulse 77 12/30/23 13:06 Resp 18 12/30/23 13:06 BP 127/64 12/30/23 13:06 Pulse Ox 96 12/30/23 13:06 O2 Del Method Room Air 12/30/23 13:06 BMI result Body Mass Index 15.6 Appearing in no acute distress head is normocephalic atraumatic eyes pupils are PERRLA sclera is anicteric mouth throat mucous membranes are intact and moist neck is supple no lymphadenopathy, no JVD noted lung sounds are clear to auscultation heart regular rate rhythm, clear S1, S2 positive bowel sounds, abdomen is soft, nontender neuro patient is alert x3, no focal deficits Results Labs 12/30/23 10:02 12/30/23 10:23 Labs: Laboratory Results - last 24 hr 12/30/23 12/30/23 12/30/23 10:02 10:23 11:15 MCV 88.0 MCH 30.5 MCHC 34.6 RDW 13.9 Plt Count 241 MPV 9.0 L Immature Gran % (Auto) 0.1 Neut % (Auto) 79.0 H Lymph % (Auto) 9.9 L [place] % (Auto) 7.2 Eos % (Auto) 3.2 Baso % (Auto) 0.6 Lymph # (Auto) 0.7 L [place] # (Auto) 0.5 Eos # (Auto) 0.2 Baso # (Auto) 0.0 Abs Immat Gran (auto) 0.01 Absolute Neuts (auto) 5.4 Absolute Nucleated RBC 0.000 Nucleated RBC % (auto) 0.0 PT 12.7 Whole Blood PT INR 1.0 Whole Blood INR APTT 35.7 Anion Gap 12 Estim Creat Clear Calc 36.8 Estimated GFR > 60 POC Glucose Random Glucose 164 H Calcium 9.1 Total Bilirubin 0.3 AST 26 ALT 15 Alkaline Phosphatase 68 Total Protein 6.7 Albumin 3.4 L 12/30/23 12/30/23 11:20 11:21 MCV MCH MCHC RDW Plt Count MPV Immature Gran % (Auto) Neut % (Auto) Lymph % (Auto) [place] % (Auto) Eos % (Auto) Baso % (Auto) Lymph # (Auto) [place] # (Auto) Eos # (Auto) Baso # (Auto) Abs Immat Gran (auto) Absolute Neuts (auto) Absolute Nucleated RBC Nucleated RBC % (auto) PT Whole Blood PT 12.7 INR Whole Blood INR 1.1 APTT Anion Gap Estim Creat Clear Calc Estimated GFR POC Glucose 100 Random Glucose Calcium Total Bilirubin AST ALT Alkaline Phosphatase Total Protein Albumin Imaging Radiologist's Impressions: Impressions Head/Neck CTA 12/30/23 11:32 IMPRESSION: 1. No evidence of acute intracranial hemorrhage or edematous territorial infarction. Moderate underlying microangiopathy and generalized cerebral volume loss. 2. CTA of the head and neck without proximal occlusion or flow-limiting stenosis. 3. Undulating appearance of the rossi of the cervical ICAs bilaterally consistent with underlying fibromuscular dysplasia. 4. Moderate heterogeneous enlargement of the left thyroid lobe he recommend further characterization with thyroid ultrasound. This critical result was discussed with EDGAR Hendricks at 12:06 on 12/30/2023 and it was ascertained that the content and urgency of the report was understood at the time of direct communication. Electronically signed by: Jg Feng DO 12/30/2023 12:16 PM EDT RP Assessment and Plan (1) Facial droop: Status: Acute Plan 83-year-old woman placed on observation for complaints of hand weakness and heaviness concern for TIA versus stroke Right hand heaviness A TIA versus stroke versus other etiology Head CT and CTA showed no evidence of acute intracranial hemorrhage or infarction, CTA without proximal occlusion or flow-limiting stenosis Mid to telemetry MRI Neurology consultation Asthma/COPD overlap Continue nebulizers as needed Hypertension Continue metoprolol Hypothyroidism Continue levothyroxine DVT prophylaxis with pneumatic compression boots Full code Quality Stroke Does the patient have a stroke diagnosis?: No VTE Prior VTE?: No VTE Risk Level:: Medical - moderate - high VTE Device Contraindication: N/A - Device Ordered VTE Drug Contraindication: Treatment Not Indicated
--- NOTE | 2023-12-30 16:08 | PHA.MEDREC ---
Addendum entered by Shantel Bustos RPh 12/30/23 16:19: MED REC REVIEWED BY [facility] Original Note: Pharmacy Consult ? Medication Reconciliation Pharmacy has completed the medication reconciliation. Spoke with patient to confirm medications, she brought in a list from home that we went over together. She did not have the methotrexate injection yesterday but had it the Monday before (12/21). She has a cream at home she uses prn for rash but cannot remember the name, she hasn't needed to use it a while. She has not used her symbicort in the past few days. She confirmed she only uses a half tab of the primidone at bedtime. All other meds she last had yesterday morning.
[2023-12-30] MEDS: Acetaminophen 325 MG TABLET 650 MG PO (21:29)
[2023-12-30] MEDS: Primidone 50 MG TABLET 25 MG PO (21:29)
[2023-12-31] VITALS (8 sets, daily range): BP systolic 137–176; BP diastolic 62–76; PULSE 62–73; RESP 15–20; TEMP 36.7–36.9; O2SAT 95–98
[2023-12-31] MEDS: 0.9 % Sodium Chloride Flush 3 ML SYRINGE IVFLUSH (05:22)
[2023-12-31] MEDS: Levothyroxine Sodium 50 MCG TABLET PO (05:24)
--- NOTE | 2023-12-31 05:35 | PC.NURSE ---
Hospitalist notified of elevated BP, new orders received
[2023-12-31] MEDS: amLODIPine Besylate 5 MG TABLET PO (05:39)
--- NOTE | 2023-12-31 06:30 | PC.NURSE ---
BP imrovement noted
--- NOTE | 2023-12-31 07:17 | PC.NURSE ---
Pt sleeping. skin pwd. check rise noted.
--- OUTSIDE RECORDS SUMMARY | 2023-12-31 07:53 | XMS_ITS | Continuity of Care Document ---
Author Organization [facility] ter Address [address] [place] [id number] Care Team Providers Care Roadmaster Name Role Phone Cherelle BYRD, Ximena Bonds Primary Care Physic nina Encounter [facility] Date(s): 05/08/22 - 05/10/[address] [id number] Discharge Disposition: A-D/C Home Attending Physician: Tab Brian MD Admitting Physician: Andry BYRD, Simran Salcedo Referring Physician: Not on Staff, Referring MD Allergies, Adverse Reactions, Alerts Substance Reaction Severity Status Latex rash Active Percocet 5/325 Active oxyCODONE vomiting passed out Active Medications aspirin 81 mg oral delayed release tablet 81 mg, By Mouth, Daily, # 90 tablet, Refills 0, Tot. Refills 0, Maintenance, 05/10/22 11:38:00 EST,Route to Pharmacy Electronically, [facility], Partial fill upon patient request if the prescription is for a schedule II opioid drug., 16... Start Date: 05/10/22 Status: Ordered folic acid 1 mg oral tablet TAKE 1 TABLET BY MOUTH EVERY DAY Start Date: 05/09/22 Status: Ordered hydroxychloroquine 200 mg oral tablet 1 tablet = 200 mg, By Mouth, Daily, 0 Refills, Maintenance, 12/26/14 8:30:17 Start Date: 12/26/14 Status: Ordered methotrexate 25 mg/mL injectable solution INJECT SUBCUTANEOUSLY 0.5ML ONCE A WEEK. SINGLE DOSE VIAL. DISCARD REMAINDER OF VIAL. Start Date: 05/09/22 Status: Ordered metoprolol 25 mg oral tablet 12.5 mg, Tablet, By Mouth, 05/10/22 9:00:00 EST Start Date: 05/10/22 Stop Date: 05/10/22 Status: Completed metoprolol 25 mg oral tablet, extended release 25 mg, 1, tablet, By Mouth, Daily, # 30 tablet, Refills 1, Tot. Refills 1, Maintenance, 05/10/22 10:48:00 EST, Route to Pharmacy Electronically, [facility], Partial fill upon patient request if the prescription is for a schedule II opioi... Start Date: 05/10/22 Status: Ordered Nebulizer/Compressor See Instructions, Maintenance, 05/09/22 7:10:00 EST, Supply Start Date: 05/09/22 Status: Ordered Nebulizer/Compressor See Instructions, Maintenance, as needed, 05/09/22 7:10:00 EST, Supply Start Date: 05/09/22 Status: Ordered omeprazole 20 mg oral enteric coated capsule TAKE 1 CAPSULE BY MOUTH EVERY DAY Start Date: 05/09/22 Status: Ordered primidone 50 mg oral tablet 25 mg, 0.5, tablet, By Mouth, Daily at bedtime, # 30 tablet, Refills 5, Maintenance, 05/09/22 11:19:00 EST, Partial fill upon patient request if the prescription is for a schedule II opioid drug. Start Date: 05/09/22 Status: Ordered Synthroid 0.05 mg oral tablet 50, mcg, 1, tablet, By Mouth, Daily, 0, 0, 08/02/07 9:13:34, Print KINGSLEY Number, [id number], Constant Indicator Start Date: 08/02/07 Status: Ordered Vitamin D3 By Mouth, 0 Refills, Maintenance Start Date: 06/26/12 Status: Ordered Problem List Condition Confirmation Course Effective Dates Status Health [facility] Informant Mixed Incontinence (Female) (Male) Confirmed Active Underweight Confirmed Active Results Radiology Reports * Exam Date Time Procedure Performing Provider Status 05/08/22 11:58 PM Chest Portable Letitia Raines; Auth (Verified) Notes: (Chest Portable) Reason For Exam: Pleuritic Pain RESULT: Chest Portable Chest Portable Hx of Present Illness: chest pain starting today, no n v d,; Reason: Pleuritic Pain; Clinical Question(s): Pneumonia COMPARISON: X-ray 12/10/2021 FINDINGS: LINES AND TUBES: None. LUNGS AND PLEURA: Clear hyperinflated lungs. Normal pulmonary vascularity. No pleural effusion. No pneumothorax. HEART, MEDIASTINUM AND WYATT: Heart is normal in size. Normal mediastinal and hilar contour. BONES AND SOFT TISSUES: No acute abnormality. Lower cervical fusion hardware is noted. IMPRESSION: No pneumonia or CHF. Mild COPD. WSN: [id number] Ordering Physician: Norberto Leger Dictated By: Gareth Perales MD Dictated Date/Time: 05/09/22 0:02 am Reviewed By: Gareth Perales MD Signed By: Gareth Perales MD Signed Date/Time: 05/09/22 0:02 am Transcribed By: CHERELLE Transcribed Date/Time: 05/09/22 0:00 am Vital Signs Most recent to oldest [Reference Range]: 1 2 3 Height 162 cm (05/10/22 12:54 PM) 162 cm (05/10/22 10:49 AM) 162 cm (05/10/22 7:10 AM) Weight 43.5 kg (05/09/22 7:03 AM) 41.2 kg (05/09/22 6:36 AM) 45.9 kg (05/09/22 3:25 AM) Oxygen Saturation [94-100 %] 92 % *L* (05/10/22 12:54 PM) 98 % (05/10/22 10:49 AM) 98 % (05/10/22 7:10 AM) Pulse Rate [55-90 bpm] 89 bpm (05/10/22 12:54 PM) 71 bpm (05/10/22 10:49 AM) 92 bpm *H* (05/10/22 8:31 AM) Body Mass Index [18.5-24.99 kg/m2] 16.58 kg/m2 *L* (05/09/22 7:03 AM) 15.7 kg/m2 *L* (05/09/22 6:36 AM) 17.49 kg/m2 *L* (05/09/22 3:25 AM) Blood Pressure [90-138/55-84 mm Hg] 107/60mm Hg (05/10/22 12:54 PM) 119/58mm Hg (05/10/22 10:49 AM) 141/72mm Hg *H* (05/10/22 8:31 AM) Respiratory Rate [16-30 br/min] 18 br/min (05/10/22 12:54 PM) 20 br/min (05/10/22 10:49 AM) 20 br/min (05/10/22 7:10 AM) Temperature [96.8-100.4 DegF] 97.9 DegF (05/10/22 12:54 PM) 97.8 DegF (05/10/22 10:49 AM) 98.4 DegF (05/10/22 7:10 AM) Mode of Delivery (Oxygen) Room air (05/10/22 12:54 PM) Room air (05/10/22 10:49 AM) Room air (05/10/22 7:10 AM) Blood pressure sites Arm, right (05/10/22 12:54 PM) Arm, left (05/10/22 10:49 AM) Arm, left (05/10/22 7:10 AM) Temperature Route Oral (05/10/22 12:54 PM) Oral (05/10/22 10:49 AM) Oral (05/10/22 7:10 AM) Dry Weight 43.5 kg (05/09/22 7:03 AM) 45.9 kg (05/09/22 3:25 AM) 45.9 kg (05/08/22 11:22 PM) Weight Obtained Via Bed scale (05/09/22 7:03 AM) Bed scale (05/09/22 6:36 AM) Patient/family stated (05/08/22 11:22 PM) Dry Weight Obtained Via Patient/family stated (05/08/22 11:22 PM) Social History Social History Type Response Smoking Status Never smoker entered on: 10/31/14 Sex Admission evaluation note * Tab Brian MD: MODIFY Johnny BYRD Veronica: MODIFY, MODIFY Johnny BYRD Veronica: MODIFY, MODIFY Johnny BYRD Veronica: MODIFY, MODIFY Johnny BYRD Veronica: MODIFY, MODIFY Johnny BYRD Veronica: MODIFY, MODIFY Johnny BYRD Veronica: MODIFY, MODIFY Johnny BYRD Veronica: MODIFY, PERFORM Johnny BYRD Veronica: PERFORM, MODIFY Johnny BYRD Veronica: MODIFY, MODIFY Johnny BYRD Veronica: MODIFY, MODIFY Johnny BYRD Veronica: MODIFY, MODIFY Johnny BYRD Veronica: MODIFY, MODIFY Veronica Turner MD: MODIFY, MODIFY Johnny BYRD, Veronica: MODIFY Event Display: Admission Note Authored Date: Patient: ??JOYCE VIRAMONTES ? Age:??82 Years?Sex:??Female?:??1940?? History of Present Illness ?? CC: CP ?? HPI: ?? 82 y/o with PMHx of?? Rheumatoid arthritis on methotrexate and hydroxychloroquine, COPD, Hypothyroidism, GERD, essential tremors who presents to the ED on 05/08 with chest pain. ??Complains of left-sided chest pain started yesterday at around 10:15 PM when she was??sitting watching??TV and??having some slices of??pizza and pineapples.?? Describes it as??tight and??sharp in nature??stabbing-like??does not radiate to the left arm??located??left parasternal area. ??Pain slightly improved with a heating pad??and improved further with nitroglycerin received by the EMS.?? Pain worse??with taking a deep breaths, lying flat, and improved with sitting forwards.?? Patient reports having similar pains prior??that would last for shorter period of time.?? Patient reports having pleurisy prior??when shewas younger.?? Patient's chest pain is not exacerbated by exertion.?? Currently says she is still having 3 out of 10??discomfort.?? No upper respiratory tract symptoms.?? No associated nausea or vomiting??or diaphoresis or SOB.?? Patient has been having some abdominal discomfort and a pulsating sensation in her abdomen??and states that she has been aware of her heartbeats but that has been going on for a long time??particularly her left carotid??artery bleeding.?? Patient reports??over the past2 weeks she has been having some??nausea??at night??and increased acid reflux.?? No lower extremityswelling or increased abdominal girth.?? Otherwise patient does not have any complaints.?? Patient does not report any prior history of??MIs or strokes??or any??heart failure history.?? Seen patient t jose m??comfortable??and her son was at her bedside. ? ED Course:?? - Vitals:??Upon Presentation afebrile, hypertensive 179/93, HR 91 satting 98 on RA - Labs:??CBC WNL differential with absolute eosinophilia 1, D dimer 0.84,?? BMP WNL, HST 12, 21, 21.?? - Diagnostic tests EKG NSR with Bigeminy and RBBB 88 BPM. CXR shows Clear hyperinflated lungs otherwise WNL. - Interim Management:??Patient received nitroglycerin and acetaminophen for pain and aspirin at EMS.?? Review of Systems Constitutional: No fever or chills Cardiac: Check HPI Respiratory: No shortness of breath, no cough, no sore throat Gastrointestinal: Nausea, abdominal discomfort, ??No diarrhea or constipation, No vomiting, Neurological: No headache, No visual Changes Extremities: No weakness, swelling or pain Objective Vital Signs?? Temperature: 98.1 DegF (05/09/22 06:36:00) Temperature Route: Oral (05/09/22 06:36:00) Pulse Rate:??94 bpm??High (05/09/22 07:07:00) Respiratory Rate: 18 br/min (05/09/22 07:23:00) Systolic Blood Pressure: 136 mm Hg (05/09/22 07:07:00) Diastolic Blood Pressure: 62 mm Hg (05/09/22 07:07:00) Blood pressure sites: Arm, left (05/09/22 07:07:00) Mean Arterial Pressure: 87 mm Hg (05/09/22 07:07:00) Pulse Pressure: 74 mm Hg (05/09/22 07:07:00) Oxygen Saturation: 99 % (05/09/22 07:07:00) Mode of Delivery (Oxygen): Room air (05/09/22 07:07:00) Early Warning Score: 0 (05/09/22 07:23:45) ? Physical Exam General: Patient in no acute pain or distress??in?? bed son at bedside HEENT: normocephalic, atraumatic, MMM Respiratory: bilateral equal air entry, clear to auscultation with no wheezes or crackles. CVS: regular rate and rhythm, S1 and S2 present, no murmurs. No JVD.??Non reproducible pain. Abdomen: soft, midepigastric tenderness, non distended, bowel sounds present. Extremities: No edema noted bilaterally. Pulses intact. Neuro: alert and oriented x3. Moving all extremities spontaneously. Following simple commands. Assessment/Plan 82 y/o with PMHx of?? Rheumatoid arthritis on ??methotrexate and hydroxychloroquine, COPD, Hypothyroidism, GERD, Mixed incontinence who presents to the ED on 05/08 with chest pain admitted for ACS R/o. ? Chest pain ?Pleurisy/Pericarditis ? Presented with left sided chest pain worse with breathing and lying flat better with sitting forwards and nitroglycerin. EKG revealed??no ischemic changes. tel;e revealing bigeminy. Troponin of 12, 21,??21 ??on admission. Does not describe prior symptoms of angina including chest pa ?in or shortness of breath at rest oron exertion or CHF. Less likely ACS. Concerns for pleuritic chest pain and pericarditis, EKG with RBBB hard to interpret if pericarditis will appreciate cardiology input. Has hx of GERD and abdominal discomfort but lesslikely contributing to pain. ESR ?? Plan: - manager protein - Consult cardiology - Aspirin 81 mg daily - PRN Acetaminophen for chest Pain- - F/U ESR CRP ? Chronic Stable Medical Conditions Rheumatoid arthritis: Continue Methotrexate and Hydroxychloroquine?? Hypothyroidism: Continue Levothyroxine GERD: Continue Omeprazole Essential tremors: Continue primidone ?? Quality Measures?? CODE Status:Full code confirmed at bedside DVT prophylaxis: Sc Heparin Diet: Cardiac ?? This case has been??reviewed and discussed with .??Tab Turner MD Internal Medicine PGY-1 Pager: [phone] ? Attending Attestation (Tab Brian MD):??I have seen and evaluated this patient. ??I have discussed the case and its management with the resident and agree with the findings and plan as documentedin the resident???s note. ?? cards rec echo and ASA ?? Histories Allergies Allergies ?(Active and Proposed Allergies Only) Percocet 5/325? (Severity: Unknown severity, Onset: Unknown) oxyCODONE? (Severity: Unknown severity, Onset: Unknown) ?Reactions: vomiting passed out Latex? (Severity: Unknown severity, Onset: Unknown) ?Reactions: rash ? Past Medical History/Problem List Active Problems??(2) Rheumatoid arthritis Hypothyroidism GERD History of mixed into incontinence COPD ? Past Surgical History Tonsillectomy 1947?? Dilatation an curettage 1965 Appendectomy 1988 hysterectomy?? 1990 Spinal fusion 2002 Cholecystectomy 2010? Social History Alcohol Last drink 10 years ago ?? Substance Abuse ??No history ?? Tobacco Former smoker 4 ??years during high school ? Family History Father: PA, DM Mother: Dementia ? Travel History Travel Outside [facility]: No Travel Outside [facility]: No ?? Medications Home Medications Cholecalciferol (Vitamin D3)?By Mouth Durable Medical Equipment (Nebulizer/Compressor)?See Instructions Durable Medical Equipment (Nebulizer/Compressor)?See Instructions?as needed Folic Acid (folic acid 1 mg oral tablet)?TAKE 1 TABLET BY MOUTH EVERY DAY Hydroxychloroquine (hydroxychloroquine 200 mg oral tablet)?1?tab(s)?200?Milligram?ByMouth?Daily Levothyroxine (Synthroid 0.05 mg oral tablet)?50?Microgram?1?tab(s)?By Mouth?Daily Methotrexate (methotrexate 25 mg/mL injectable solution)?INJECT SUBCUTANEOUSLY 0.5ML ONCE A WEEK. SINGLE DOSE VIAL. DISCARD REMAINDER OF VIAL. Omeprazole (omeprazole 20 mg oral enteric coated capsule)?TAKE 1 CAPSULE BY MOUTH EVERY DAY Primidone (primidone 50 mg oral tablet)?25?Milligram?0.5?tablet?By Mouth?Daily atbedtime ? Inpatient Medications Medications (13) Active SCHEDULED: (7) Aspirin 81 mg EC Tablet (aspirin 81 mg oral delayed release tablet) ??81 mg, By Mouth, Daily Folic Acid 1 mg Tablet (folic acid 1 mg oral tablet) ??1 mg, By Mouth, Daily Heparin 5000 units/mL Inj (1 mL) (Heparin Inj) ??5,000 units 1 mL, Subcutaneous Injection, Every 8 hours Hydroxychloroquine 200 mg Tablet (hydroxychloroquine 200 mg oral tablet) ??200 mg, By Mouth, Daily Levothyroxine 25 mcg Tablet (Synthroid 0.025 mg oral tablet) ??50 mcg, By Mouth, Daily NaCl 0.9% Flush 3ml (NaCL 0.9% Flush) ??3 mL, IV Push, Every 8 hours Primidone 50 mg Tablet (primidone 50 mg oral tablet) ??25 mg, By Mouth, Daily at bedtime CONTINUOUS: (0) PRN: (6) Acetaminophen 325 mg Tablet (Tylenol 325 mg oral tablet) ??650 mg, By Mouth, Every 4 hours Melatonin 3 mg Tablet (Melatonin Tablet) ??3 mg, By Mouth, Daily at bedtime NaCl 0.9% Flush 3ml (NaCL 0.9% Flush) ??3 mL, IV Push, Every 8 hours Polyethylene Glycol 17 Gm Powder (MiraLax Powder) ??17 Gm 1 pack/packet, By Mouth, Daily Senna 8.6 mg / Docusate 50 mg tablet (Docusate/Senna Tablet) ??1 tablet, By Mouth, 2 times a day Simethicone 80 mg Chewable Tablet (Simethicone Tablet) ??80 mg, Chew, 3 times a day ? Results Recent Labs BLOOD COUNT & DIFF WBC 9.4 k/mm3 ()?? 05/08/2022 23:24 RBC 4.28 m/mm3 ()?? 05/08/2022 23:24 Hgb 12.8 Gm/dL ()?? 05/08/2022 23:24 Hct 37.7 % ()?? 05/08/2022 23:24 MCV 88.1 femtoliters ()?? 05/08/2022 23:24 MCH 29.9 pg ()?? 05/08/2022 23:24 MCHC 34.0 g/dL ()?? 05/08/2022 23:24 Platelet Count 217 k/mm3 ()?? 05/08/2022 23:24 RDW-SD 44.1 femtoliters ()?? 05/08/2022 23:24 MPV 10.1 femtoliters ()?? 05/08/2022 23:24 Nucleated RBC (Automated) 0.0 #/100 WBC'S ()?? 05/08/2022 23:24 Abs. NRBC 0.0 k/mm3 ()?? 05/08/2022 23:24 Abs. Neut 6.3 k/mm3 ()?? 05/08/2022 23:24 Abs. Lymph 1.3 k/mm3 ()?? 05/08/2022 23:24 Abs. Baldwin 0.8 k/mm3 ()?? 05/08/2022 23:24 Abs. Eo 1.0 k/mm3 (High)?? 05/08/2022 23:24 Abs. Baso 0.1 k/mm3 ()?? 05/08/2022 23:24 Neut % 66.7 % ()?? 05/08/2022 23:24 Lymph % 13.7 % (Low)?? 05/08/2022 23:24 Baldwin % 8.3 % ()?? 05/08/2022 23:24 Eos % 10.6 % (High)?? 05/08/2022 23:24 Baso % 0.6 % ()?? 05/08/2022 23:24 Imm Gran 0.1 % ()?? 05/08/2022 23:24 Abs. Imm Gran 0.0 k/mm3 ()?? 05/08/2022 23:24 ?? CARDIAC Nt-Probnp 403 pg/mL ()?? 05/08/2022 23:24 High Sensitivity Troponin (HSTnT) 21 ng/L (High)?? 05/09/2022 04:49 ?? CHEM GENERAL Sodium 136 mmol/L ()?? 05/08/2022 23:24 Potassium 4.3 mmol/L ()?? 05/09/2022 01:56 Chloride 101 mmol/L ()?? 05/08/2022 23:24 Bicarbonate Level 27 mmol/L ()?? 05/08/2022 23:24 Anion Gap 8 ()?? 05/08/2022 23:24 Glucose Level 111 mg/dL (High)?? 05/08/2022 23:24 BUN 23 mg/dL ()?? 05/08/2022 23:24 Creatinine-Blood 0.6 mg/dL ()?? 05/08/2022 23:24 Estimated GFR Creatinine 88 ML/MIN/1.73 M2 ()?? 05/08/2022 23:24 Calcium 9.0 mg/dL ()?? 05/08/2022 23:24 ?? COAG D-Dimer 0.84 mg/L FEU ()?? 05/09/2022 03:21 ?? HEME OTHER Hold Blue Top SPECIMEN DISCARDED AFTER 4 HOURS. ()?? 05/08/2022 23:24 ?? VIROLOGY Influenza A PCR NEGATIVE ()?? 05/08/2022 23:21 Influenza B PCR NEGATIVE ()?? 05/08/2022 23:21 RSV PCR NEGATIVE ()?? 05/08/2022 23:21 COVID-19 PCR Specimen Source NASAL ()?? 05/08/2022 23:21 COVID-19 PCR Result NEGATIVE ()?? 05/08/2022 23:21 ? EKG study * Event Display: ECG 12-Lead Authored Date: Please click on pdf link to open report * Event Display: ECG 12-Lead Authored Date: Ventricular Rate: 103 BPM Atrial Rate: 103 BPM P-R Interval: 132 ms QRS Duration: 124 ms Q-T Interval: 412 ms QTC Calculation(Bazett): 539 ms P Bonesteel: 83 degrees R Bonesteel: 71 degrees T Bonesteel: 50 degrees Sinus tachycardia with frequent Premature ventricular complexes in a pattern of bigeminy Right bundle branch block Abnormal ECG When compared with ECG of 09-MAY-2022 02:50, No significant change Confirmed by YULIYA MANSFIELD ([id number]) on 05/10/2022 9:39:29 AM [place]: YULIYA MANSFIELD Heart * Event Display: Echocardiogram - Complete Authored Date: Transthoracic Echocardiography Report (TTE) Patient Demographics Patient Name JOYCE VIRAMONTES Date of Study 05/10/2022 Corporate Gender Female Facility Race Ethnicity Date of 1940 Height: 63.78 inches Age 82 year(s) Weight: 97 pounds Accession Number [id number] BSA: 1.43 m2 Room Number D321 BMI: 16.77 kg/m2 Referring Physician Christine Stearns DO Interpreting Physician Omkar Elise MD Financial Aid Officer Tay Chun Indications Chest pain. Clinical History COPD Study Data Type of Study TTE procedure:Echo Complete-Doppler, Colorflow, M-Mode. Study Date05/10/2022 Start Time: 07:19 AM Study Location: [facility] Adult Echo Study Status: Bedside Patient Status: Routine Technical Quality: Fair Blood Pressure:140/65 mmHg EKG: Sinus with ectopy HR: 72 bpm 2D Measurements LV Diastolic Dimension: 3.7 cm LV Systolic Dimension: 2.5 cm LV Septum Diastolic: 0.7 cm LV PW Diastolic: 0.8 cm AO Root Dimension: 3.1 cm LA Dimension: 2.3 cm LA ESV (BP):47.5 ml LVOT Stroke Volume: 59.01 ml LA ESV Index: 33 ml/m2 Stroke Volume Index41.27 ml/m2 LVOT: 1.8 cm Cardiac Index:2.97 l/min/m2 Doppler Measurements AV Peak Velocity: 113 cm/s MV Peak E-Wave: 64.6 cm/s AV Peak Gradient: 5.11 mmHg MV Peak A-Wave: 74.4 cm/s AV Mean Gradient: 3 mmHg MV E/A Ratio: 0.87 AV VTI:32 cm MV P1/2t: 52 msec LVOT Peak Velocity: 82.8 cm/s MV Mean Gradient: 1 mmHg LVOT VTI23.2 cm MV Area (continuity): 2.78 cm2 AV Area (Continuity):1.84 cm2 MV Deceleration Time: 271 msec MV Area (PHT): 4.23 cm2 TR Velocity:205 cm/s TR Gradient:16.81 mmHg PV Peak Velocity: 81.3 cm/s PV Peak Gradient: 2.64 mmHg E' Septal Velocity: 7.4 cm/s E' Lateral Velocity: 10.9 cm/s E/Med E':8.31797 E/Lat E':5.803713 Cardiac Anatomy Left Ventricle/Interventricular Septum The left ventricular size is normal. Left ventricular wall thickness is normal. The LV systolic function is normal. The left ventricular ejection fraction is 60-65%. There are no definite regional wall motion abnormalities. There is no doppler evidence of increased filling pressures. Left Atrium/Interatrial Septum The left atrium is normal in size. Aortic Valve There is mild aortic annular calcification. The aortic valve is trileaflet. There is mild to moderate aortic regurgitation. There is no aortic stenosis. Mitral Valve The mitral valve appears mildly thickened. There is mild mitral regurgitation. Aorta The aortic root is normal in size. Right Ventricle The right ventricle is normal in size and function. Right Atrium The right atrium is normal in size. Pulmonic Valve The pulmonic valve is poorly visualized. Tricuspid Valve The tricuspid valve is grossly normal. There is mild tricuspid valve regurgitation. Pumonary Artery The pulmonary artery appears grossly normal. Venous Structures The inferior vena cava appears normal. Pericardium/Extracardiac There is no significant pericardial effusion. Summary 1) The LV systolic function is normal. The left ventricular ejection fraction is 60-65%. There are no definite regional wall motion abnormalities. 2) The right ventricle is normal in size and function. 3) There is mild aortic annular calcification. The aortic valve is trileaflet. There is mild to moderate aortic regurgitation. There is no aortic stenosis. 4) Rhythm is sinus rhythm with frequent PVCs Comparison No prior study available for comparison. Signature * Event Display: Echocardiogram - Complete Authored Date: [id number] [facility] Progress note * Priya Champagne RN: PERFORM, SIGN, VERIFY Event Display: Progress Note Hospital Authored Date: Patient: JOYCE VIRAMONTES Age: 82 years Sex: Female : 1940 Associated Diagnoses: None Author: Priya Champagne RN Findings Narrative/Incidental Pt a&OX4, VSS C/O 08/24 left side chest pain now 04/26 chest pain given Nitro x2 EKG done MD [place] SR w/bigeminy , admission complete pt oriented to unit report given to pt nurse.. Note * Merle Jhaveri RN: PERFORM Event Display: Discharge/Transfer Note Hospital Authored Date: [id number] Nursing Discharge Note Entered On: 05/10/2022 17:03 EST Performed On: 05/10/2022 17:03 EST by Merle Jhaveri RN Nursing Discharge Note 2 Discharge Time : 05/10/2022 15:00 EST Discharge Level of Care at Discharge : Home/Alf/Foster Care Patient Left Unit Via : Wheelchair Patient Accompanied Off Unit with : Responsible adult DC Instructions Provided & Signed by Pt : Yes Patient Understands D/C Instructions : Yes Verbalized Understanding of D/C Plan By : Patient Patient Instructions Discharge Signed : Yes Did Pt have Specialty Bed or Wound Vac : No Merle Jhaveri RN - 05/10/2022 17:03 EST * Veronica Turner MD: PERFORM, MODIFY, MODIFY, MODIFY, MODIFY, MODIFY Event Display: Discharge/Transfer Note Hospital Authored Date: [id number] Patient: ??JOYCE VIRAMONTES ? Age:??82 Years?Sex:??Female?:??1940?? Patient Information Discharge Location: [facility] Primary Care Physician: Cherelle BYRD, Ximena Bonds Admit Date/Time: 05/08/22 23:03 Discharge Disposition Discharge Disposition: Home: No Services Discharge Diagnosis Pleuritic Chest Pain Ventricular Bigeminy and PVCs Hypertension _ Discharge Medications Aspirin (aspirin 81 mg oral delayed release tablet)?81?Milligram?By Mouth?Daily Cholecalciferol (Vitamin D3)?By Mouth Durable Medical Equipment (Nebulizer/Compressor)?See Instructions Durable Medical Equipment (Nebulizer/Compressor)?See Instructions?as needed Folic Acid (folic acid 1 mg oral tablet)?TAKE 1 TABLET BY MOUTH EVERY DAY Hydroxychloroquine (hydroxychloroquine 200 mg oral tablet)?1?tab(s)?200?Milligram?ByMouth?Daily Levothyroxine (Synthroid 0.05 mg oral tablet)?50?Microgram?1?tab(s)?By Mouth?Daily Methotrexate (methotrexate 25 mg/mL injectable solution)?INJECT SUBCUTANEOUSLY 0.5ML ONCE A WEEK. SINGLE DOSE VIAL. DISCARD REMAINDER OF VIAL. Metoprolol (metoprolol 25 mg oral tablet, extended release)?25?Milligram?1?tablet?ByMouth?Daily Omeprazole (omeprazole 20 mg oral enteric coated capsule)?TAKE 1 CAPSULE BY MOUTH EVERY DAY Primidone (primidone 50 mg oral tablet)?25?Milligram?0.5?tablet?By Mouth?Daily atbedtime ? Medications Started Metoprolol (metoprolol 25 mg oral tablet, extended release)?25?Milligram?1?tablet?ByMouth?Daily Aspirin (aspirin 81 mg oral delayed release tablet)?81?Milligram?By Mouth?Daily Medications Discontinued None Doses Changed None Allergies Allergies ?(Active and Proposed Allergies Only) Percocet 5/325? (Severity: Unknown severity, Onset: Unknown) oxyCODONE? (Severity: Unknown severity, Onset: Unknown) ?Reactions: vomiting passed out Latex? (Severity: Unknown severity, Onset: Unknown) ?Reactions: rash ? PCP Follow-Up/Heads-Up Follow-up with??outpatient cardiology??and consider outpatient??stress test and Zio patch Hospital Course ??82 y/o with PMHx of?? Rheumatoid arthritis on ??methotrexate and hydroxychloroquine, COPD, Hypothyroidism, GERD, Mixed incontinence who presents to the ED on 05/08 with chest pain admitted for ACS R/O. Chest pain seems to be pleuritic in nature no ischemic changes on EKG and troponin flat. Ventricular bigeminy on tele and frequent PVCs, started ion metoprolol. Seen by cardiology underwent echo which shows mild AR otherwise WNL. Stable and ready to be discharged. Objective Assessment and Plan ?? Chest pain Pleuritic in Nature Hypertension Presented with left sided chest pain worse with breathing and lying flat better with sitting forwards and nitroglycerin. SBP 179 on presentation. EKG revealed??no ischemic changes. tele revealing bigeminy. Troponin of 12, 21,??21 ??on admission. Does not describe prior symptoms of angina including chest pain or shortness of breath at rest or on exertion or CHF. Not consistent with ACS. Concerns for pleuritic chest pain/pericarditis, EKG with RBBB hard to interpret if pericarditis. CRP and ESR elevated likely due to her ??RA. Has hx of GERD and abdominal discomfort but less likely contributing to pain. Echocardiogram shows mild AR. ?? Plan: - Start Aspirin 81 mg daily - Start Metoprolol 12.5 BID for PVCs - PRN Acetaminophen for chest Pain - Follow-up with outpatient cardiology - Zio patch outpatient to monitor PVC burden. - Consider outpatient stress test. - BP control ?? Chronic Stable Medical Conditions Rheumatoid arthritis: Continue Methotrexate and Hydroxychloroquine?? Hypothyroidism: Continue Levothyroxine GERD: Continue Omeprazole Essential tremors: Continue primidone ? Vital Signs?? Temperature: 97.8 DegF (05/10/22 10:49:00) Temperature Route: Oral (05/10/22 10:49:00) Pulse Rate: 71 bpm (05/10/22 10:49:00) Respiratory Rate: 20 br/min (05/10/22 10:49:00) Systolic Blood Pressure: 119 mm Hg (05/10/22 10:49:00) Diastolic Blood Pressure: 58 mm Hg (05/10/22 10:49:00) Blood pressure sites: Arm, left (05/10/22 10:49:00) Mean Arterial Pressure: 78 mm Hg (05/10/22 10:49:00) Pulse Pressure: 61 mm Hg (05/10/22 10:49:00) Oxygen Saturation: 98 % (05/10/22 10:49:00) Mode of Delivery (Oxygen): Room air (05/10/22 10:49:00) Early Warning Score: 2 (05/10/22 10:49:22) ? . Physical Exam General: Patient in no acute pain or distress?? HEENT: normocephalic, atraumatic Respiratory: bilateral equal air entry, clear to auscultation with no wheezes or crackles. CVS: regular rate and rhythm, S1 and S2 present, no murmurs. No JVD.?? Abdomen: soft, non tender, non distended, bowel sounds present. Extremities: No edema noted bilaterally. Pulses intact. Neuro: alert and oriented x3. Moving all extremities spontaneously. Following simple commands. Patient Education Titles Understanding Premature Ventricular Contractions (PVCs)?? Premature Ventricular Contractions?? Metoprolol Extended Release Oral Tablet?? Uncertain Causes of Chest Pain?? Follow-Up Appointments Added Follow Up ?Time Frame ?Comments Prescription has been sent to [facility]?you have been statrted on metoprolol as rec by cardiology [facility]?4 to 5 weeks Ximena Villarreal MD?1 to 2 weeks?for the follow up Patient Instructions You presented to our emergency department with left-sided chest pain. EKG of your heart??showed no??signs of loss of blood supply to the heart. We do not think that your pain is??from your heart. We think that your pain might be pleuritic in nature??this could be given??your history of rheumatoid arthritis. Cardiac monitoring??showed some abnormal heart rhythm??called PVCs. You have been seen by??cardiology??who recommended an echocardiogram or ultrasound of the heart. Your echocardiogram??was within normal limits??showed some mild aortic regurgitation??can be followed as an outpatient. We have started you on??metoprolol for your abnormal heart rhythm??12.5 mg twice a day. We also started you on aspirin 81??mg 1 tablet daily Please take your medications as prescribed. Please follow-up with your??primary care provider. Please follow-up with??[facility] cardiology as an outpatient. If you experience??severe??or worsening chest pain or shortness of breath??please call your PCP office or present to the nearest emergency department. Post Discharge Care Diet: Cardiac diet Activity: Ambulate with assistance ??3 times a day ??unless otherwise specified Code Status: ?? Full Resuscitation Condition: Fair Prognosis: Fair Discharge ?05/10/22 10:45:00 EST Discharge Prescriptions ?ePrescribed, ??05/10/22 10:45:00 EST Results Discharge Labs BLOOD COUNT & DIFF WBC 9.4 k/mm3 ()?? 05/08/2022 23:24 RBC 4.28 m/mm3 ()?? 05/08/2022 23:24 Hgb 12.8 Gm/dL ()?? 05/08/2022 23:24 Hct 37.7 % ()?? 05/08/2022 23:24 MCV 88.1 femtoliters ()?? 05/08/2022 23:24 MCH 29.9 pg ()?? 05/08/2022 23:24 MCHC 34.0 g/dL ()?? 05/08/2022 23:24 Platelet Count 217 k/mm3 ()?? 05/08/2022 23:24 RDW-SD 44.1 femtoliters ()?? 05/08/2022 23:24 MPV 10.1 femtoliters ()?? 05/08/2022 23:24 Nucleated RBC (Automated) 0.0 #/100 WBC'S ()?? 05/08/2022 23:24 Abs. NRBC 0.0 k/mm3 ()?? 05/08/2022 23:24 Abs. Neut 6.3 k/mm3 ()?? 05/08/2022 23:24 Abs. Lymph 1.3 k/mm3 ()?? 05/08/2022 23:24 Abs. Baldwin 0.8 k/mm3 ()?? 05/08/2022 23:24 Abs. Eo 1.0 k/mm3 (High)?? 05/08/2022 23:24 Abs. Baso 0.1 k/mm3 ()?? 05/08/2022 23:24 Neut % 66.7 % ()?? 05/08/2022 23:24 Lymph % 13.7 % (Low)?? 05/08/2022 23:24 Baldwin % 8.3 % ()?? 05/08/2022 23:24 Eos % 10.6 % (High)?? 05/08/2022 23:24 Baso % 0.6 % ()?? 05/08/2022 23:24 Imm Gran 0.1 % ()?? 05/08/2022 23:24 Abs. Imm Gran 0.0 k/mm3 ()?? 05/08/2022 23:24 ?? CARDIAC Nt-Probnp 403 pg/mL ()?? 05/08/2022 23:24 High Sensitivity Troponin (HSTnT) 21 ng/L (High)?? 05/09/2022 04:49 ?? CHEM GENERAL Sodium 136 mmol/L ()?? 05/08/2022 23:24 Potassium 4.3 mmol/L ()?? 05/09/2022 01:56 Chloride 101 mmol/L ()?? 05/08/2022 23:24 Bicarbonate Level 27 mmol/L ()?? 05/08/2022 23:24 Anion Gap 8 ()?? 05/08/2022 23:24 Glucose Level 111 mg/dL (High)?? 05/08/2022 23:24 BUN 23 mg/dL ()?? 05/08/2022 23:24 Creatinine-Blood 0.6 mg/dL ()?? 05/08/2022 23:24 Estimated GFR Creatinine 88 ML/MIN/1.73 M2 ()?? 05/08/2022 23:24 Calcium 9.0 mg/dL ()?? 05/08/2022 23:24 C-Reactive Protein 1.6 mg/dL (High)?? 05/09/2022 11:32 ? COAG D-Dimer 0.84 mg/L FEU ()?? 05/09/2022 03:21 ? HEME OTHER Sed Rate 30 mm/hr (High)?? 05/09/2022 11:32 Hold Blue Top SPECIMEN DISCARDED AFTER 4 HOURS. ()?? 05/08/2022 23:24 ?? VIROLOGY Influenza A PCR NEGATIVE ()?? 05/08/2022 23:21 Influenza B PCR NEGATIVE ()?? 05/08/2022 23:21 RSV PCR NEGATIVE ()?? 05/08/2022 23:21 COVID-19 PCR Specimen Source NASAL ()?? 05/08/2022 23:21 COVID-19 PCR Result NEGATIVE ()?? 05/08/2022 23:21 ? Microbiology ?? COVID-19, RSV, and Flu A/B, Rapid PCR?? Completed?? Source: Nasal Body Site: Nose Collected Dt/Tm: 05/08/2022 23:14 Last Updated Dt/Tm: 05/09/2022 00:35 ?This case has been??reviewed and discussed with ??Tab Turner MD Internal Medicine PGY-1 Pager: [phone] 30 ??minutes spent on discharge * Emilio HAMPTON, Merle Dorsey: PERFORM Event Display: Patient Education/Instruction Authored Date: [id number] Inpatient Adult Discharge Instructions [address] [address] Name: JOYCE VIRAMONTES : 1940 Visit: 05/08/2022 23:03:00 Current Date: 05/10/2022 12:57 Account: [id number] Inpatient Adult Discharge Instructions We would like to thank you for allowing us to assist you with your healthcare needs. The following includes patient education materials and information regarding your injury/illness. Our entire staffstrives to provide an excellent experience for our patients and their families. PLEASE ENSURE YOU FOLLOW-UP PER THE INSTRUCTIONS BELOW! ?? YOUR OPINION IS IMPORTANT TO US! Please complete the survey you may receive by mail or email. Your feedback will be used to make improvements to the healthcare experiences of our patients and their families. Surveys are administered by [facility]. ?? If further treatment with your primary care physician or another doctor is recommended, it is important for you to keep the appointment. Call your primary care physician or return to the Emergency Department immediately if your condition worsens, fails to improve, or new symptoms develop. If you need to find a doctor, you can call [facility] for a referral at [phone] or toll free at [phone]) or log in to [email or web address] ?? You can view and manage your care through the patient portal or by using a health care matteo of your choosing. [facility] is a website that allows you to securely view your medical information including your hospital discharge summary, office visit summaries, medications and follow-up visits. You can also request appointments, renew medications, and request access to your medical information using a health care matteo of your choosing, or just ask a question. You can enroll at [email or web address] or register during your next office visit. You have been discharged from [facility], Patient Care Unit: S3. If you have any questions regarding these instructions after you leave, please call us and we will be happy to assist you. [facility] Your Care Team Attending Physician Tab Brian MD Consulting Providers Beata Montano MD Discharging Providers Tab Brian MD Reason for Admission CP started tonight- L sided sharp chest pain on worse on inspiration, known HTN in and out of bigemy and ST for ems - a/o x 4 Tests Performed Below is a partial list of the tests performed during your hospitalization. You may have had other tests and procedures not included in this list. Please discuss all test results with your provider. Basic Metabolic Panel CBC w/ Differential COVID-19, RSV, and Flu A/B, Rapid PCR CRP D Dimer High??Sensitivity??Troponin T Hold Blue Top Tube Potassium Level ProBNP Sedimentation Rate XR Chest Portable Primary Care Provider Cherelle BYRD, Ximena Bonds Advance Directive Health Care Proxy on File No Patient refuses to discuss No qualifying data available. Discharge Vitals Temperature: 97.9 DegF Height: 162 cm Pulse Rate: 89 bpm Weight: 43.5 kg Respiratory Rate: 18 br/min Body Mass Index:??16.58 kg/m2??Low Systolic Blood Pressure: 107 mm Hg Body surface area: 1.4 Diastolic Blood Pressure: 60 mm Hg ?? Oxygen Saturation:??92 %??Low ?? Studies Pending All tests and labs ordered during this hospital stay have been completed unless listed below. Please discuss all pending results with your provider listed above in these instructions. ?? Add On Lab Order COVID-19 (2019 Novel Coronavirus) PCR What to do next Instructions From Your Doctor You presented to our emergency department with left-sided chest pain. EKG of your heart??showed no??signs of loss of blood supply to the heart. We do not think that your pain is??from your heart. We think that your pain might be pleuritic in nature??this could be given??your history of rheumatoid arthritis. Cardiac monitoring??showed some abnormal heart rhythm??called PVCs. You have been seen by??cardiology??who recommended an echocardiogram or ultrasound of the heart. Your echocardiogram??was within normal limits??showed some mild aortic regurgitation??can be followed as an outpatient. We have started you on??metoprolol for your abnormal heart rhythm??12.5 mg twice a day. We also started you on aspirin 81??mg 1 tablet daily Please take your medications as prescribed. Please follow-up with your??primary care provider. Please follow-up with??[facility] cardiology as an outpatient. If you experience??severe??or worsening chest pain or shortness of breath??please call your PCP office or present to the nearest emergency department. Discharge Orders Diet:??Cardiac diet Activity:??Ambulate with assistance 3 times a day unless otherwise specified Code Status:?? Full Resuscitation Condition:??Fair Prognosis:??Fair You Need to Schedule the Following Appointments Follow Up with??Prescription has been sent to pharmacy [facility] When?? Why: you have been statrted on metoprolol as rec by cardiology Follow Up with??[facility] When??Within 4 to 5 weeks Where: [address] [place] [address]- [facility] (1) Follow Up with??Ximena Villarreal MD When??Within 1 to 2 weeks Why: for the follow up Where: [address], [place] [address]- [facility] (1) Discharge Medications JOYCE VIRAMONTES :1940 Visit Date:05/08/2022 Medications: Please continue your medications until treatment is completed or stopped by your provider. Medications not listed below should be discontinued. Discuss any questions related to medications with your provider. What How Much When Instructions Next Dose New Aspirin (aspirin 81 mg oral delayed release tablet) 81 Milligram Oral Daily Pickup at [facility] 3 next dose due 05/11 at 9am New Metoprolol (metoprolol 25 mg oral tablet, extended release) 1 tab(s) Oral Daily Refills: 1 Pickup at [facility] 3 next dose due 05/11 at 9am Changed Folic Acid (folic acid 1 mg oral tablet) TAKE 1 TABLET BY MOUTH EVERY DAY ?? next dose due 05/11 at 9am Changed Methotrexate (methotrexate 25 mg/ mL injectable solution) INJECT SUBCUTANEOUSLY 0.5ML ONCE A WEEK. SINGLE DOSE VIAL. DISCARD REMAINDER OF VIAL. ?? resume home regimen Unchanged Cholecalciferol (Vitamin D3) Oral next dose due 05/11 at 9am Unchanged Hydroxychloroquine (hydroxychloroquine 200 mg oral tablet) 1 tab(s) Oral Daily next dose due 05/11 at 9am Unchanged Levothyroxine (Synthroid 0.05 mg oral tablet) 1 tab(s) Oral Daily next dose due 05/11 at 7am Unchanged Omeprazole (omeprazole 20 mg oral enteric coated capsule) TAKE 1 CAPSULE BY MOUTH EVERY DAY ?? next dose due 05/11 at 9am Unchanged Primidone (primidone 50 mg oral tablet) 0.5 tab(s) Oral Daily at Bedtime next dose due 05/10 at 9pm Pharmacy Information [facility] 3: [address], [place] [id number] [phone] ?? What How Much When Comments Stop Taking Leucovorin (leucovorin 10 mg oral tablet) 1 tab(s) Oral Every 6 hours Stop Taking mirabegron (mirabegron 25 mg oral tablet, extended release) 1 tab(s) Oral Daily do not crush or chew ?? Test Results Below is a partial list of the most recent Laboratory test results done prior to this discharge. You may have had other tests and procedures not included in this list. Please discuss all test resultswith your provider. Basic Metabolic Panel (05/08/2022) ???Sodium - 136 mmol/L???Potassium - HEMOLYZED???Chloride - 101 mmol/L???Bicarbonate Level - 27 mmol/L???Anion Gap - 8???Glucose Level - 111 mg/dL???BUN - 23 mg/dL???Creatinine-Blood - 0.6 mg/dL???Estimated GFR Creatinine - 88 ML/MIN/1.73 M2???Calcium - 9.0 mg/dL CBC w/ Differential (05/08/2022) ???WBC - 9.4 k/mm3???RBC - 4.28 m/mm3???Hgb - 12.8 Gm/dL???Hct - 37.7 %???MCV - 88.1 femtoliters???MCH - 29.9 pg???MCHC - 34.0 g/dL???Platelet Count - 217 k/mm3???RDW-SD - 44.1 femtoliters???MPV - 10.1 femtoliters???Nucleated RBC (Automated) - 0.0 #/100 WBC'S???Abs. NRBC - 0.0 k/mm3???Abs. Neut - 6.3 k/mm3???Abs. Lymph - 1.3 k/mm3???Abs. Baldwin - 0.8 k/mm3???Abs. Eo - 1.0 k/mm3???Abs. Baso - 0.1 k/mm3???Neut % - 66.7 %???Lymph % - 13.7 %???Baldwin % - 8.3 %???Eos % - 10.6 %???Baso % - 0.6 %???Imm Gran - 0.1 %???Abs. Imm Gran - 0.0 k/mm3 COVID-19, RSV, and Flu A/B, Rapid PCR (05/08/2022) ???Influenza A PCR - NEGATIVE???Influenza B PCR - NEGATIVE???RSV PCR - NEGATIVE???COVID-19 PCR Specimen Source - NASAL???COVID-19 PCR Result - NEGATIVE CRP (05/09/2022) ???C-Reactive Protein - 1.6 mg/dL D Dimer (05/09/2022) ???D-Dimer - 0.84 mg/L FEU High??Sensitivity??Troponin T (05/09/2022) ???High Sensitivity Troponin (HSTnT) - 21 ng/L Hold Blue Top Tube (05/08/2022) ???Hold Blue Top - SPECIMEN DISCARDED AFTER 4 HOURS. 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 Underweight?? Education Materials Below is the list of Educational Leaflet Providered with your Discharge Instructions. Understanding Premature Ventricular Contractions (PVCs)?? Premature Ventricular Contractions?? Metoprolol Extended Release Oral Tablet?? Uncertain Causes of Chest Pain?? Valuables and Belongings I fully understand and agree that [facility] accepts no responsibility for all my personal property including clothing, toilet articles, radios, jewelry, dentures, hearing aids, rings, money, or any other property that is in my possession or is brought to me after admission. I understand certain valuables may be placed in a hospital safe for a short period of time. I understand that the hospital is not liable for loss or damage due to accident, fire, or other natural occurrence while said property is in the safe. I accept full responsibility for any personal property that I keep with me, and will not hold the hospital responsible in case of loss or disappearance. I acknowledge that i have been encouraged to send valuables and belongings home. ?? Review of Valuable and Belonging List: With patient Date for Pt to Sign Valuables/Belongings: 05/10/22 12:54:00 ?? Other Discharge Information ? Pulmonary Rehab Status?? Pulmonary Rehab Discharge Status?? Respiratory Rate: 18 br/min ? Common Emergency Awareness Tips IS IT A STROKE? Act FAST and Check for these signs: FACE Does the face look uneven? ARM Does one arm drift down? SPEECH Does their speech sound strange? TIME Call at any sign of stroke ?? Heart Attack Signs Chest discomfort: Most heart attacks involve discomfort in the center of the chest and lasts more than a few minutes, or goes away and comes back. It can feel like uncomfortable pressure, squeezing, fullness or pain. Discomfort in upper body: Symptoms can include pain or discomfort in one or both arms, back, neck, jaw or stomach. Shortness of breath: With or without discomfort. Other signs: Breaking out in a cold sweat, nausea, or lightheaded. Remember, MINUTES DO MATTER. If you experience any of these heart attack warning signs, call to get immediate medical attention! ?? Smoking can increase your chances of developing chronic health problems and can cause harmful effects to other family members in your house. If you smoke, you are strongly encouraged to quit. Please call [facility] at [phone] or 0-751-333BetaUsersNow.com ([phone]) or log in to [email or web address] for referrals to smoking cessation programs. ?? The National Suicide Prevention Hotline is available 07/11 if you or someone you know needs to find a reason to keep living. By calling 5-461-678-talk (7928) you'll be connected to a skilled, trained counselor at a crisis center in your area. INPATIENT DISCHARGE INSTRUCTIONS SIGNATURE PAGE JOYCE VIRAMONTES Location:[facility] Registration Date and Time:05/08/2022 23:03 EST Primary Care Physician: Cherelle BYRD, Ximena Bonds, I JOYCE VIRAMONTES, have received the above patient education materials/instructions and have verbalized understanding. If ambulance or transport services are being used I further acknowledge being given a choice of service. ?? If you need to contact me, please call me at this number: . Patient/Corporate Controller Name: Patient/Corporate Controller Signature: Relationship to Patient: Witness Name/Signature: Date: * Tab Brian MD: PERFORM, SIGN, VERIFY Event Display: Patient Education Handout Authored Date: [id number] * Tab Brian MD: PERFORM Event Display: Patient Education Leaflets Authored Date: [id number] Understanding Premature Ventricular Contractions (PVCs) ?? [address]7960 Understanding Premature Ventricular Contractions (PVCs) Premature ventricular contractions (PVCs) are a type of abnormal heartbeat (arrhythmia). They are commonly found in people of all ages.? How PVCs happen Your heart has 4 chambers: 2 upper atria and 2 lower ventricles. Normally, a special group of pacemaker cells begins the signal to start your heartbeat. These cells are in the sinoatrial (SA) node in the right atrium. The signal quickly travels down your heart???s conducting system. It moves to the left and right ventricle. As it travels, the signal triggers nearby parts of your heart to contract. This allows your heart to squeeze in a coordinated way. During a PVC, the signal to start your heartbeat instead comes from one of the ventricles. This signal is premature, meaning it happens before the SA node has had a chance to fire. The signal spreadsthrough the rest of your heart, causing a heartbeat. If this happens very soon after the previous heartbeat, your heart will push out very little blood. This causes a feeling of a pause between beats. If it happens a little later, your heart pushes out an almost normal amount of blood. This leads to a feeling of an extra heartbeat. So the heart has a ???premature?? heartbeat in between normal heartbeats. ?? What causes PVCs? Certain things can help set off a premature signal in the ventricles. These include: ??? Advancing age ??? Reduced blood flow to your heart (such as coronary artery disease) ??? Scarring after a heart attack ??? Electrolyte problems, such as low sodium or potassium levels ??? Caffeine ??? Alcohol ??? Nicotine ??? Illegal drugs, such as cocaine and methamphetamine ??? Increased adrenaline, such as with anxiety ??? Certain medicines such as digoxin ??? Endocrine (hormone) problems,such as hyperthyroid (too much thyroid hormone) Many heart conditions raise the risk for PVCs. These include: ??? High blood pressure ??? Heart attack ??? Coronary heart disease ??? Dilated cardiomyopathy ??? Hypertrophic cardiomyopathy ??? Congenital heart disease ??? Heart failure They often happen in people without any heart disease. But PVCs are somewhat more common in people with some kind of heart disease.? What are the symptoms of PVCs? Most people with occasional PVCs don???t have symptoms. The more PVCs you have, the more likely youare to feel them. When symptoms do happen, they are usually minor. Symptoms may include: ??? An awareness of the heart beating ??? A fluttering or flip-flop feeling in your chest ??? Feeling of a skipped or extra heartbeat ??? Dizziness and near-fainting ??? A pulsing sensation in the neck PVCs may cause more severe symptoms if you have another heart problem, such as heart failure.? How are PVCs diagnosed? Your healthcare provider will ask about your medical history and give you a physical exam. An electrocardiogram (ECG) is the main test for diagnosis. This test records the electrical activity of yourheart. During an ECG, small pads (electrodes) are placed on your chest, arms, and legs. Wires connect the pads to a machine, which records your heart???s electrical signals. This test allows your provider to look at the signal of your heartbeat for a brief time. Any PVCs that occur during this timewill show up on the ECG. In some cases, your healthcare provider might advise ECG monitoring over aday or more, up to several years. This can help to diagnose PVCs that don???t happen often. .??There are several types of heart monitors: ??? Holter monitor.??This monitor is a small box with wires connected to pads on your chest. You wear it for 1 to 2 days. It provides a constant recording of heart activity. After the test is done, your healthcare provider analyzes the recording. ??? Event monitors.??These monitors are also small boxes with wires connected to pads on your chest. They are generally worn for 3 to 4 weeks. But they can be used for several months. One kind is a memory loop recorder. This monitor records constantly.But it stores the recording only when you press a button. The other kind is a credit card-sized recorder. This monitor is turned on only during an episode. With both types, you send the recordings ofsymptoms to your healthcare provider over the phone. ??? Mobile cardiac outpatient telemetry (MCOT). This type of event monitor is usually used for 30 days. It uses cell phone technology to send datain real time to a monitoring center where trained technicians can review it. Or it can contact a healthcare provider for a life-threatening problem. ??? Patch monitor. This is a small self-contained a dhesive patch that can record your heart rhythm for up to 2 weeks. ??? Insertable (or implantable) regulatory specialist (ICM). This small device is implanted under the skin. It can be used to monitor the heart rhythm for several years. ??? Commercially available wearable heart rhythm monitors . These include smartwatches or wristbands. They may be useful for detecting abnormal heart rhythms. These may be the only tests your healthcare provider will need. You may need more testing if you have PVCs often, or many in a row. Your provider may look at other causes, including possible heart problems. These tests might include: ??? Echocardiography. This test uses ultrasound to evaluate your heart???s structure and function. ??? Cardiac stress testing. This test checks how your heart responds to exercise and to evaluate heart artery blood flow. ??? Cardiac CT or MRI. These imaging tests make detailed pictures of the heart. ??? Blood tests.??This is done to check electrolyte and thyroid levels. ?? Last Reviewed Date: 2019 ?? [employer]. All rights reserved. This information is not intended as a substitute for professional medical care. Always follow your healthcare professional's instructions. ?? * Tab Brian MD: PERFORM Event Display: Patient Education Leaflets Authored Date: [id number] Premature Ventricular Contractions ?? Premature Ventricular Contractions - Video As the name suggests, premature ventricular contractions are contractions in the lower chambers of the heart that occur too early in the rhythm sequence. These contractions, also called Paces, are common, particularly in older adults. This video discusses what effect these contractions can have on your health. To view the video go to this web address: [email or web address] [email or web address] Or, scan this QR code with your smart phone Last Reviewed Date: 2019 ?? [employer]. All rights reserved. This information is not intended as a substitute for professional medical care. Always follow your healthcare professional's instructions. ?? * Tab Brian MD: PERFORM Event Display: Patient Education Leaflets Authored Date: [id number] Metoprolol Extended Release Oral Tablet ?? [address] Metoprolol Extended Release Oral Tablet Brands: Toprol Uses This medicine is used for the following purposes: ??? angina ??? heart attack ??? heart failure ???high blood pressure ??? irregular heart beat ??? prevent migraine headaches ??? movement disorder ?? Instructions Swallow the medicine without crushing or chewing it. This medicine may be taken with or without food. It is very important that you take the medicine at about the same time every day. It will work bestif you do this. Keep the medicine at room temperature. Avoid heat and direct light. It is important that you keep taking each dose of this medicine on time even if you are feeling well. If you forget to take a dose on time, take it as soon as you remember. If it is almost time for thenext dose, do not take the missed dose. Return to your normal dosing schedule. Do not take 2 doses of this medicine at one time. Drug interactions can change how medicines work or increase risk for side effects. Tell your healthcare providers about all medicines taken. Include prescription and [id number] medicines, vitamins, and herbal medicines. Speak with your doctor or pharmacist before starting or stopping any medicine. This medicine may cause low blood sugar. Eat regular meals and exercise as instructed by your doctor. Tell your doctor if you have symptoms of low blood sugar such as nausea, sweating, cold skin, fast heartbeat, hunger, and irritability. If you have diabetes, this medicine may hide some signs of low blood sugar, such as fast heartbeat.Check your blood sugar regularly and for other signs of low blood sugar. Do not suddenly stop taking this medicine. Check with your doctor before stopping. ?? Cautions Tell your doctor and pharmacist if you ever had an allergic reaction to a medicine. Some patients with weak hearts may have worsening of symptoms. If you notice difficulty breathing, weight gain, or swelling of your legs or ankles, let your doctor know right away. Do not use the medication any more than instructed. This medicine may cause dizziness or fainting, especially after exercising or in hot weather. Be very careful when standing or sitting up quickly. Your ability to stay alert or to react quickly may be impaired by this medicine. Do not drive or operate machinery until you know how this medicine will affect you. Please check with your doctor before drinking alcohol while on this medicine. Tell the doctor or pharmacist if you are , planning to be , or . Do not share this medicine with anyone who has not been prescribed this medicine. ?? Side Effects The following is a list of some common side effects from this medicine. Please speak with your doctor about what you should do if you experience these or other side effects. ??? diarrhea ??? dizziness or drowsiness ??? lack of energy and tiredness ??? slow heartbeat ??? low blood pressure Call your doctor or get medical help right away if you notice any of these more serious side effects: ??? confusion ??? depression or feeling sad ??? fainting ??? pale or blue skin, lips or fingernails??? shortness of breath ??? unusual or unexplained tiredness or weakness ??? sudden or unexplained weight gain A few people may have an allergic reaction to this medicine. Symptoms can include difficulty breathing, skin rash, itching, swelling, or severe dizziness. If you notice any of these symptoms, seek medical help quickly. ?? Extra Please speak with your doctor, nurse, or pharmacist if you have any questions about this medicine. ?? [email or web address] IMPORTANT NOTE: This document tells you briefly how to take your medicine, but it does not tell youall there is to know about it. Your doctor or pharmacist may give you other documents about your medicine. Please talk to them if you have any questions. Always follow their advice. There is a more complete description of this medicine available in Wolof. Scan this code on your smartphone or tablet or use the web address below. You can also ask your pharmacist for a printout. If you have any questions, please ask your pharmacist. The display and use of this drug information is subject to Terms of Use. Copyright(c) 2021 [employer]. ?? [employer]. All rights reserved. This information is not intended as a substitute for professional medical care. Always follow your healthcare professional's instructions. ?? Portable XR Chest Views * BHSPowerscriromulo , SANDRA S: TRANSCRIBE Diaz BYRD, Gareth Dorsey: VERIFY Event Display: Result: Authored Date: Chest Portable Hx of Present Illness: chest pain starting today, no n v d,; Reason: Pleuritic Pain; Clinical Question(s): Pneumonia COMPARISON: X-ray 12/10/2021 FINDINGS: LINES AND TUBES: None. LUNGS AND PLEURA: Clear hyperinflated lungs. Normal pulmonary vascularity. No pleural effusion. No pneumothorax. HEART, MEDIASTINUM AND WYATT: Heart is normal in size. Normal mediastinal and hilar contour. BONES AND SOFT TISSUES: No acute abnormality. Lower cervical fusion hardware is noted. IMPRESSION: No pneumonia or CHF. Mild COPD. WSN: [id number] Ordering Physician: Norberto Leger Dictated By: Gareth Perales MD Dictated Date/Time: 05/09/22 0:02 am Reviewed By: Gareth Perales MD Signed By: Gareth Perales MD Signed Date/Time: 05/09/22 0:02 am Transcribed By: CHERELLE Transcribed Date/Time: 05/09/22 0:00 am Patient Care team information Care Team Personnel Name: Ximena Villarreal MD Position: [facility] Outreach Member Role: PCP Address: Address: [address] [place] [id number] Name: Priya Champagne RN Position: [facility] RN Member Role: Primary Care Nurse Name: Aletha Mcghee RN Position: [facility] RN Member Role: Primary Care Nurse Name: Laquita Fuller RN Position: [facility] RN Member Role: Primary Care Nurse Name: Frieda RIVERS Attending Position: [facility] ED Medicine MD Name: Norberto Brennan Position: [facility] Associate Professional Member Role: ED Physician Commercial Carpet Installer Address: Address: [address] [place] [address] [place], [place] [address] Name: Rani Azar Position: [facility] ED TA [facility] Member Role: Patient Care Provider Name: Lay Meraz RN Position: [facility] ED RN W/OE and Tasks Member Role: Patient Care Provider Care Team Related Persons Name: VINITA VIRAMONTES Address: [place] [address] Name: MAURI VIRAMONTES Address: home [address] [place] [address]
--- OUTSIDE RECORDS SUMMARY | 2023-12-31 08:04 | XMS_ITS | Continuity of Care Document ---
Author Organization [facility] Address [address] [place] [address]- Care Team Providers Care Presentation Manager Name Role Phone Macy BYRD, Kary Primary Care Physician [phone] Encounter [facility] [place] Date(s): 07/29/22 - 08/28/22 [facility] [address] [place] [address]- Attending Physician: Carolyn Lee Admitting Physician: Carolyn Lee Referring Physician: AdmtrCarolyn Allergies, Adverse Reactions, Alerts Substance Reaction Severity Status Latex rash Active Percocet 5/325 Active oxyCODONE vomiting passed out Active Medications aspirin 81 mg oral delayed release tablet 81 mg, By Mouth, Daily, # 90 tablet, Refills 0, Tot. Refills 0, Maintenance, 05/10/22 11:38:00 EST,Route to Pharmacy Electronically, [facility], Partial fill upon patient [...] 05/09/22 Status: Ordered metoprolol 25 mg oral tablet, extended release 25 mg, 1, tablet, By Mouth, Daily, # 30 tablet, Refills 1, Tot. 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 Underweight Confirmed Active Social History Social History Type Response Smoking Status Never smoker entered on: 10/31/14 Sex Patient Care team information Care Team Personnel Name: Kary Cavazos MD Position: Reference Physician Member Role: PCP Address: Address: [address] [place] [address]- Name: rPiya Champagne RN Position: [facility] RN Member Role: Primary Care Nurse Name: Aletha Mcghee RN Position: [facility] RN Member Role: Primary Care Nurse Name: Laquita Fuller RN Position: [facility] RN Member Role: Primary Care Nurse Care Team Related Persons Name: VINITA VIRAMONTES Address: [place] [address] Name: MUARI VIRAMONTES Address: [address] [address]
--- NOTE | 2023-12-31 08:09 | PC.NURSE ---
awake. Axox3. able to follow commands and make needs known. speech is clear. only deficit noted is right facial droop. reports that weakness in RUE has resolved. exam confirms euqal strength BUE and BLE.
--- OUTSIDE RECORDS SUMMARY | 2023-12-31 08:14 | XMS_ITS | Continuity of Care Document ---
Author Organization [facility] Address [address] [place] [address]- Care Team Providers Care Machine Group Leader Name Role Phone Kary aCvazos MD Primary Care Physician [place] [facility] [place]21[place]23 - 10/21/23 [facility] [address] [place], [place] [id number]- Attending Physician: Carolyn Lee Admitting Physician: Carolyn Lee Referring Physician: Admtr Ar8 Allergies, Adverse Reactions, Alerts Substance Reaction Severity Status oxyCODONE vomiting passed out Active Latex rash Active Percocet 5/325 Active Medications aspirin 81 mg oral delayed release tablet 81 mg, By Mouth, Daily, # 90 tablet, Refills 0, Tot. Refills 0, Maintenance, 05/10/22 11:38:00 EST,Route to Pharmacy Electronically, [facility], Partial fill upon patient request if [...] 05/10/22 10:48:00 EST, Route to Pharmacy Electronically, [facility], Partial fill upon patient request [...] 0, 0, 08/02/07 9:13:34, Print KINGSLEY Number, [id number], Constant Indicator Start Date: 08/02/07 Status: Ordered Tums 500 mg oral tablet, chewable 500 mg, 1, tablet, Chew, 2 times a day, PRN, # 12 tablet, Refills 0, Maintenance, as needed for dyspepsia, 09/15/22 13:49:00 EDT, Partial fill upon patient request if the prescription is for a schedule II opioid drug. Start Date: 09/15/22 Status: Ordered Tylenol 325 mg oral tablet 325 mg, 1, tablet, By Mouth, PRN, # 60 tablet, Refills 0, Maintenance, for pain, 09/15/22 13:50:00 EDT, Partial fill upon patient request if the prescription is for a schedule II opioid drug. 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 Familial tremor Confirmed Active Underweight Confirmed Active Social History Social History Type Response Smoking Status Never smoker entered on: 10/31/14 Sex Cardiology * Event Display: 24 Hour Blood Pressure Monitoring Authored Date: Patient Care team information Care Team Personnel Name: Kary Cavazos MD Position: Reference Physician Member Role: PCP Address: Address: [address] [place] [address]- [place] Name: Priya Champagne RN Position: S RN Member Role: Primary Care Nurse Name: Aletha Mcghee NP Position: [facility] Associate Professional Member Role: Primary Care Nurse Address: Address: [address] [place] [address]- Name: Laquita Fuller RN Position: S RN Member Role: Primary Care Nurse Care Team Related Persons Name: VINITA VIRAMONTES Address: [place] [address] Name: MAURI VIRAMONTES Address: home [address] [place] [address]
[2023-12-31] MEDS: Folic Acid 1 MG TABLET PO (08:23)
[2023-12-31] MEDS: Aspirin 81 MG TAB.CHEW PO (08:23)
[2023-12-31] MEDS: Calcium Oyster Shell Elemental 500 MG TABLET 1000 MG PO (08:23)
[2023-12-31] MEDS: Hydroxychloroquine Sulfate 200 MG TABLET PO (08:24)
[2023-12-31] MEDS: Cholecalciferol (Vitamin D3) 25 MCG TABLET PO (08:24)
[2023-12-31] MEDS: Metoprolol Succinate ER 25 MG TAB.ER.24H PO (08:24)
--- OUTSIDE RECORDS SUMMARY | 2023-12-31 08:24 | XMS_ITS | Continuity of Care Document ---
Author Organization [facility] Address [address] [facility], [address] [place] [address]- Care Team Providers Care Coal Wheeler Name Role Phone Ximena Villarreal MD Primary Care Physic nina Encounter 01/10/20 - 05/04/20 [facility] [address], [address] [place] [address]- Attending Physician: Ximena Villarreal MD Admitting Physician: Ximena Villarreal MD Referring Physician: Ximena Villarreal MD Allergies, Adverse Reactions, Alerts Substance Reaction Severity Status oxyCODONE vomiting passed out Active Latex rash Active Percocet 5/325 Active Medications Folic Acid Daily, 0 Refills, Maintenance, 10/31/14 15:32:45 Start Date: 10/31/14 Status: Ordered hydroxychloroquine 200 mg oral tablet 1 tablet = 200 mg, By Mouth, Daily, 0 Refills, Maintenance, 12/26/14 8:30:17 Start Date: 12/26/14 Status: Ordered leucovorin 10 mg oral tablet 1 tablet = 10 mg, By Mouth, Every 6 hours, 0 Refills, Maintenance, 12/26/14 8:28:23 Start Date: 12/26/14 Status: Ordered Methotrexate Inj Once, Maintenance, 12/26/14 8:28:03 Start Date: 12/26/14 Status: Ordered mirabegron 25 mg oral tablet, extended release 1 tablet = 25 mg, By Mouth, Daily, do not crush or chew, # 30 tablet, 5 Refills, Maintenance, 08/01/17 11:33:34 EDT, ER Tablet Start Date: 08/01/17 Status: Ordered Synthroid 0.05 mg oral tablet 50, mcg, 1, tablet, By Mouth, Daily, 0, 0, 08/02/07 9:13:34, Print KINGSLEY Number, [id number], Constant Indicator Start Date: 08/02/07 Status: Ordered Vitamin D3 By Mouth, 0 Refills, Maintenance Start Date: 06/26/12 Status: Ordered Problem List Condition Effective Dates Status Health Status Inform ant Mixed Incontinence (Female) (Male)(Confirmed) Active Results Radiology Reports * Exam Date Time Procedure Performing Provider Status 02/14/20 4:18 PM Chest 2 Views Frontal and Lat Simone Ferrer (Verified) Notes: (Chest 2 Views Frontal and Lat) Reason For Exam: Chronic Obstructive Pulmonary Disease RESULT: Chest 2 Views Frontal and Lat Chest 2 Views Frontal and Lat Reason: Chronic Obstructive Pulmonary Disease COMPARISON: 05/24/2019 FINDINGS: LINES AND TUBES: None. LUNGS AND PLEURA: Lungs remain hyperaerated with flattening of both hemidiaphragms. The lungs are clear with normal vascularity. The right lateral costophrenic angle is blunted but no pleural fluid is identified in the lateral projection. No pneumothorax. HEART, MEDIASTINUM AND WYATT: Heart is normal in size. Normal mediastinal and hilar contour. BONES AND SOFT TISSUES: No acute abnormality. Slight thoracolumbar dextroscoliosis remote lower cervical spine fusion procedure.. IMPRESSION: COPD without acute disease. Stable scarring of pleura in the lateral right costophrenic angle. Remote lower cervical spine fusion procedure. WSN: [id number] Ordering Physician: Andrzej Granados Dictated By: Segundo Bowen MD Dictated Date/Time: 02/14/20 4:36 pm Reviewed By: Segundo Bowen MD Signed By: Segundo Bowen MD Signed Date/Time: 02/14/20 4:36 pm Transcribed By: CHERELLE Transcribed Date/Time: 02/14/20 4:34 pm Social History Social History Type Response Smoking Status Never smoker entered on: 10/31/14 Sex
--- OUTSIDE RECORDS SUMMARY | 2023-12-31 08:34 | XMS_ITS | Continuity of Care Document ---
Author Organization [facility] Address [address] [place] [address]- Care Team Providers Care Copping Machine Operator Name Role Phone Cherelle BYRD, Ximena Bonds Primary Care Physic nina [place] [facility] [place](s): 01/13/22 - 02/12/[address] [address] Attending Physician: Carolyn Lee Admitting Physician: Carolyn [...] 1, tablet, By Mouth, Daily, 0, 0, 04/17/08 9:13:34, Print KINGSLEY Number, [id number], Constant Indicator Start Date: 08/02/07 Status: Ordered Vitamin D3 By Mouth, 0 Refills, Maintenance Start Date: 06/26/12 Status: Ordered Problem List Condition Confirmation Course Effective Dates Status Health St atus Informant Mixed Incontinence (Female) (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
[2023-12-31 08:43] LABS: MANUAL DIFF FLAG NO
--- OUTSIDE RECORDS SUMMARY | 2023-12-31 08:44 | XMS_ITS | Continuity of Care Document ---
Author Organization [facility] Address [address] [facility], [address] d Floor, [address] [place] [address]- Care Team Providers Care Non Categorical Preschool Teacher Name Role Phone Cherelle BYRD, Ximena Bonds Primary Care Physic nina Encounter [facility] Date(s): 06/20/19 - 06/30/19 [facility] [address], [address], [address] [place] [address]- [facility] Attending Physician: Carolyn Lee Admitting Physician: Carolyn [...] 0, 0, 08/02/07 9:13:34, Print KINGSLEY Number, [id number], Constant Indicator Start Date: 08/02/07 Status: Ordered Vitamin D3 By Mouth, 0 Refills, Maintenance Start Date: 06/26/12 Status: Ordered Problem List Condition Effective Dates Status Health Status Inform ant Mixed Incontinence (Female) (Male)(Confirmed) Active Social History Social History Type Response Smoking Status Never smoker entered on: 10/31/14 Sex
[2023-12-31 08:50] LABS: Basophils Absolute Auto 0.1 X10*3/uL (0.0-0.2); Basophils Percent Auto 0.9 % (0-2); Eosinophils Absolute Auto 0.5 X10*3/uL (0.0-0.4); Eosinophils Percent Auto 9.8 % (0-4); Hematocrit 41.3 % (37.0-47.0); Hemoglobin 13.6 g/dl (12.0-16.0); Imm Gran Abs Auto 0.01 X10*3/uL (0.00-0.03); Imm Gran Pct Auto 0.2 % (0.0-0.4); Lymphocytes Absolute Auto 1.1 X10*3/uL (1.2-4.9); Lymphocytes Percent Auto 20.3 % (20-40); Mean Corpuscular HGB Conc 32.9 g/dl (31.0-35.0); Mean Corpuscular Hemoglobin 29.5 pg (27.0-33.0); Mean Corpuscular Volume 89.6 fL (80.0-98.0); Mean Platelet Volume 8.9 fL (9.4-12.3); Monocytes Absolute Auto 0.5 X10*3/uL (0.1-1.2); Monocytes Percent Auto 8.7 % (2-11); Neutrophils Absolute Auto 3.3 x10*3/uL (2.0-8.3); Neutrophils Percent Auto 60.1 % (45-73); Platelet Count 262 X10*3/uL (160-400); Red Blood Count 4.61 X10*6/uL (4.20-5.50); Red Cell Distribution Width 13.7 % (11.0-16.0); White Blood Count 5.4 X10*3/uL (4.8-10.8)
--- OUTSIDE RECORDS SUMMARY | 2023-12-31 08:54 | XMS_ITS | Continuity of Care Document ---
Author Organization [facility] [place] [address] [facility] [place] [address]- Care Team Providers Care Interrelated Special Education Teacher Name Role Phone Kary Cavazos MD Primary Care Physician Encounter 11/20/23 - 11/27/23 [facility] [address], [facility] [address] [place] [address]- Attending Physician: Andrzej Granados MD Admitting Physician: Andrzej Granados MD Referring Physician: Andrzej Granados MD Allergies, Adverse Reactions, Alerts Substance Reaction Severity Status Latex rash Active Percocet 5/325 Active oxyCODONE vomiting passed out Active Medications aspirin 81 mg oral delayed release tablet 81 mg, By Mouth, Daily, # 90 tablet, Refills 0, Tot. Refills 0, Maintenance, 05/10/22 11:38:00 EST,Route to Pharmacy Electronically, [facility], Partial fill upon patient request if [...] 05/10/22 10:48:00 EST, Route to Pharmacy Electronically, [facility], Partial fill upon patient [...] 0, 0, 08/02/07 9:13:34, Print KINGSLEY Number, [id number], Constant Indicator Start Date: 08/02/07 Status: Ordered [...] Familial tremor Confirmed Active Underweight Confirmed Active Results Radiology Reports * Exam Date Time Procedure Performing Provider Status 11/20/23 2:11 PM Chest 2 Views Frontal and Lat Cristhian Ragsdale; Auth (Verified) Notes: (Chest 2 Views Frontal and Lat) Reason For Exam: Pneumonia RESULT: Chest 2 Views Frontal and Lat Chest 2 Views Frontal and Lat Reason: Pneumonia COMPARISON: 10/13/2023 and 04/14/2023 FINDINGS: LINES AND TUBES: None. LUNGS AND PLEURA: Lungs are hyperinflated with chronic pleural/parenchymal scarring in the right apex and right upperlobe laterally. The possible small focus of airspace disease in the left midlung described on the prior study is not present on today's exam. There are no areas of acute infiltrate or consolidation in either lung. No pleural effusion with stable mild pleural thickening at the right base. No pneumothorax. HEART, MEDIASTINUM AND WYATT: Heart is normal in size. Normal mediastinal and hilar contour. BONES AND SOFT TISSUES: No acute abnormality. Mild thoracic curve convex right with multilevel degenerative changes. 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 No evidence for acute cardiopulmonary pathology. WSN: [id number] Ordering Physician: Andrzej Granados Dictated By: Karthikeyan Acosta MD Dictated Date/Time: 11/21/23 7:37 am Reviewed By: Karthikeyan Acosta MD Signed By: Karthikeyan Acosta MD Signed Date/Time: 11/21/23 7:37 am Transcribed By: CHERELLE Transcribed Date/Time: 11/21/23 7:32 am Social History Social History Type Response Smoking Status Never smoker entered on: 10/31/14 Sex Patient Care team information Care Team Personnel Name: Kary Cavazos MD Position: Reference Physician Member Role: PCP Address: Address: [address] [place] [address]- [place] Name: Priya Champagne RN Position: S RN Member Role: Primary Care Nurse Name: Aletha Mcghee NP [facility] Associate Professional Member Role: Primary Care Nurse Address: Address: [address] [place] [address]- Name: Laquita Fuller RN Position: S RN Member Role: Primary Care Nurse Name: Andrzej Granados MD Position: S Physician - Pulm/Critical Care Med Service: Pulmonology Member Role: Ordering Physician Address: Address: [address] [place] [address]- Care Team Related Persons Name: VINITA VIRAMONTES Address: [place] [address] Name: MAURI VIRAMONTES Address: home [address] [place] [address]
--- OUTSIDE RECORDS SUMMARY | 2023-12-31 09:04 | XMS_ITS | Continuity of Care Document ---
Author Organization [facility] Address [address] [facility], [address] d Floor, [address] [place] [address]- Care Team Providers Care Shampoo Person Name Role Phone Cherelle BYRD, Ximena Bonds Primary Care Physic nina Encounter [facility] Date(s): 03/22/19 - 07/20/19 [facility] [address], 3[address] Floor, [address] [place] [address]- [facility] Attending Physician: Jennifer Morocho MD Admitting Physician: Jennifer Morocho MD Referring Physician: Scott ROSEN, Annabel Marlow Allergies, Adverse Reactions, Alerts Substance Reaction Severity Status Latex rash Active Percocet 5/325 Active oxyCODONE vomiting passed out Active Medications Folic Acid Daily, 0 Refills, [...] 0, 0, 08/02/07 9:13:34, Print KINGSLEY Number, [id number], Constant Indicator Start Date: 08/02/07 Status: Ordered Vitamin D3 By Mouth, 0 Refills, Maintenance Start Date: 06/26/12 Status: Ordered Problem List Condition Effective Dates Status Health Status Inform ant Mixed Incontinence (Female) (Male)(Confirmed) Active Social History Social History Type Response Smoking Status Never smoker entered on: 10/31/14 Sex
[2023-12-31 09:07] LABS: Alanine Aminotransferase 16 U/L (0-31); Albumin Level 3.5 g/dL (3.5-5.0); Alkaline Phosphatase 71 U/L (39-117); Anion Gap 11 (12-20); Aspartate Amino Transferase 27 U/L (5-31); Bilirubin Total 0.4 mg/dL (0.0-1.0); Blood Urea Nitrogen 14 mg/dL (9-16); Calcium 9.3 mg/dL (8.4-10.2); Carbon Dioxide 30 mmol/L (22-29); Chloride 98 mmol/L (96-108); Creatinine Clr Calc Pharmacy 36.8; Estimated Glomerular Filt Rate > 60; Glucose Random 109 mg/dL (60-115); Potassium 3.8 mmol/L (3.3-5.1); Sodium 135 mmol/L (135-145); Total Protein 6.8 g/dL (6.5-8.0)
[2023-12-31 09:10] LABS: Cholesterol 153 mg/dL (<200); HDL Cholesterol 53 mg/dL (>40); LDL Cholesterol Calculated 90 mg/dL (<100); Triglycerides 51 mg/dL (<150)
--- OUTSIDE RECORDS SUMMARY | 2023-12-31 09:14 | XMS_ITS | Continuity of Care Document ---
Author Organization [facility] Address [address] [facility] [place] [address]- Care Team Providers Care Topographical Field Assistant Name Role Phone Ximena Villarreal MD Primary Care Physic nina Encounter 07/14/21 - 07/21/21 [facility] [address], [address] [place], [place] [address] Attending Physician: Ximena Villarreal MD Admitting Physician: [...] 0, 0, 08/02/07 9:13:34, Print KINGSLEY Number, [id number], Constant Indicator Start Date: 08/02/07 Status: Ordered Vitamin D3 By Mouth, 0 Refills, Maintenance Start Date: 06/26/12 Status: Ordered Problem List Condition Effective Dates Status Health Status Inform ant Mixed Incontinence (Female) (Male)(Confirmed) Active Social History Social History Type Response Smoking Status Never smoker entered on: 10/31/14 Sex
--- OUTSIDE RECORDS SUMMARY | 2023-12-31 09:24 | XMS_ITS | Continuity of Care Document ---
Author Organization [facility] Address [address] [place] [address]- Care Team Providers Care Wheel And Pinion Inspector Name Role Phone Macy BYRD, Kary Primary Care Physician Encounter [facility] Date(s): 07/29/22 - 12/29/22 [facility] [address] [place] [address]- Discharge Disposition: A-D/C Home Attending Physician: Alejandro Crowe MD Admitting Physician: Alejandro Crowe MD Referring Physician: Kary Cavazos MD Allergies, Adverse Reactions, Alerts Substance Reaction Severity Status Latex rash Active Percocet 5/325 Active oxyCODONE vomiting passed out Active Medications aspirin 81 mg oral delayed release tablet 81 mg, By Mouth, Daily, # 90 tablet, Refills 0, Tot. Refills 0, Maintenance, 05/10/22 11:38:00 EST,Route to Pharmacy Electronically, [facility], Partial fill upon patient request [...] 05/10/22 10:48:00 EST, Route to Pharmacy Electronically, [facility], Partial fill upon patient request [...] 0, 0, 08/02/07 9:13:34, Print KINGSLEY Number, [id number], Constant Indicator Start Date: 08/02/07 Status: Ordered [...] Reference Physician Member Role: PCP Address: Address: [address] [place] [id number] Name: Aletha Mcghee RN Position: S RN Member Role: Primary Care Nurse Name: Laquita Fuller RN Position: S RN Member Role: Primary Care Nurse Care Team Related Persons Name: VINITA VIRAMONTES Address: [place] [address] Name: MAURI VIRAMONTES Address: home [address] [place] [address]
--- OUTSIDE RECORDS SUMMARY | 2023-12-31 09:32 | XMS_ITS | Continuity of Care Document ---
Author Organization [facility] Address [address] [place] [address]- Care Team Providers Care Material Control Analyst Name Role Phone Kary Cavazos MD Primary Care Physician Encounter [facility] [id number] Date(s): 09/15/22 - 09/22/22 [facility] [address] [place] [address]- Encounter Diagnosis Underweight(Discharge Diagnosis) - 09/15/22 Hypertension(Discharge Diagnosis) - 09/15/22 Attending Physician: Cherelle BYRD, Ximena Bonds Allergies, Adverse Reactions, Alerts Substance Reaction Severity Status Latex rash Active Percocet 5/325 Active oxyCODONE vomiting passed out Active Medications aspirin 81 mg oral delayed release tablet 81 mg, By Mouth, Daily, # 90 tablet, Refills 0, Tot. Refills 0, Maintenance, 05/10/22 11:38:00 EST,Route to Pharmacy Electronically, [facility], Partial fill upon patient [...] 05/10/22 10:48:00 EST, Route to Pharmacy Electronically, [facility], Partial fill upon patient [...] 0, 0, 08/02/07 9:13:34, Print KINGSLEY Number, [id number], Constant Indicator Start Date: 08/02/07 Status: Ordered [...] Familial tremor Confirmed Active Underweight Confirmed Active Diagnosis Diagnosis Type Effective Dates Health Status inical Service Informant Underweight Discharge Diagnosis 09/15/22 Hypertension Discharge Diagnosis 09/15/22 Vital Signs Most recent to oldest [Reference Range]: 1 Height 162 cm (09/15/22 1:38 PM) Weight 46.4 kg (09/15/22 1:38 PM) Oxygen Saturation [94-100 %] 99 % (09/15/22 1:38 PM) Pulse Rate [55-90 bpm] 73 bpm (09/15/22 1:38 PM) Body Mass Index [18.5-24.99 kg/m2] 17.68 kg/m2 *L* (09/15/22 1:38 PM) Blood Pressure [90-138/55-84 mm Hg] 139/ 54mm Hg *H* (09/15/22 1:38 PM) Blood pressure sites Arm, left (09/15/22 1:38 PM) Social History Social History Type Response Smoking Status Never smoker entered on: 10/31/14 Sex EKG study * Event Display: ECG 12-Lead Authored Date: Please click on pdf link to open report * Event Display: ECG 12-Lead Authored Date: Ventricular Rate: 70 BPM Atrial Rate: 70 BPM P-R Interval: 188 ms QRS Duration: 124 ms Q-T Interval: 424 ms QTC Calculation(Bazett): 457 ms P Hamer: 79 degrees R Hamer: 59 degrees T Hamer: 49 degrees Normal sinus rhythm Right bundle branch block Abnormal ECG When compared with ECG of 09-MAY-2022 06:57, Premature ventricular complexes are no longer Present QT has shortened Confirmed by OMKAR ELISE MD ([id number]) on 09/20/2022 6:27:51 AM Laurens: OMKAR ELISE MD Cardiology Outpatient Note * Tam BYRD, Eusebio LAL Event Display: Cardiology Note Office Authored Date: [id number] Patient: ??JOYCE VIRAMONTES ? Age:??82 Years?Sex:??Female?:??1940?? Patient Hx Cardiology Shared Clinical Summary INTERPRETATION Predominant rhythm is normal sinus rhythm. The average heart rate is 67 beats per minute with reduced heart rate variability. The minimum heart rate is 51bpm. The maximum heart rate is 92bpm. There were occasional PACs, atrial couplets and triplers and 10 runs of PSVT, the longest 8 beats. There were rare PVCs and no ventricular arrhythmias. There were no significant pauses or high degree AVB. Confirmed by YULIYA MANSFIELD ([id number]) on 07/05/2022 12:01:40 PM ?? Overall Impression Pharmacologic Study Only, Physiologic Response not Assessed-Pharm Stress, No EKG Evidence of Ischemia INTERPRETATION: No ischemic EKG changes with pharmacologic stress. Overall risk is higher in patients undergoing pharmacologic stress Patient denied CP throughout test Patient had intermittent PACS, as well as atrial couplets, and unifocal PVCS Nuclear scan report to follow. Confirmed by CRIS LING ([id number]) on 08/30/2022 9:06:17 AM Indication for Consult NPV Chest Pain History of Present Illness/Interval History It was a pleasure seeing Joyce??at the hospital follow-up, although she is new to me.?? She was hospitalized in April 2022 at [facility] after presenting with??severe hypertension around 180 mmHg systolic and??pleuritic left-sided chest pain. ??Her cardiac enzymes did not cross the??positive threshold.?? She was discharged on??metoprolol. ??Since discharge??she reports that she is doing well. ??She does exercise class once a week.?? She walks multiple times per week greater than 1mile??per time. ??She does not walk outside, however??due to??allergies and possible??allergen??induced asthma. ??She has gained??some weight recently, planned, but is still underweight.?? She has not had any similar chest discomfort and??her blood pressure has been much better controlled. Review of Systems 10+ system ROS performed, pertinent positives and negatives in HPI and below. ??See scanned patientquestionnaire. Physical Exam Vitals & Measurements HR:??73??(Peripheral)?? BP:??139/54?? SpO2:??99%?? HT:??162??cm?? WT:??46.4??kg?? BMI:??17.68?? Weight lb/oz: 102 lb 5 oz Gen: pleasant, in no distress on room air, thin Resp: lungs clear to auscultation bilaterally CV: normal rate, regular rhythm, no murmurs rubs or gallops. Ext: ??No JVD. ??No lower extremity edema. No carotid bruits.?Visible gross tremor in??right hand.?? Abnormal phonation??secondary to tremor Assessment/Plan 82-year-old female who presented with pleuritic chest pain in April to the [facility] emergency department??and was admitted.?? Uncontrolled hypertension at that time.?? Since starting metoprolol 25 mg once daily??blood pressure control is much improved.?? No recurrent chest pain. ??Exercising??multiple times per week without cardiovascular symptoms. 1.??Hypertension Continue metoprolol.?? Prior to today most recent blood pressures in??CIS have been normal. ??Her systolic is mildly elevated but diastolic mildly??reduced right now. She is on aspirin due to??coronary calcifications, mild on noncardiac CT.?? I think this is reasonable, however I would have a low threshold to stop??aspirin if she had any significant bleeding complications 2.??Underweight Per other providers. Orders: ECG 12 Lead ECG sinus rhythm, right bundle branch block, otherwise normal??(note the right bundle branch block was present on??first echo in our system in 2010, and has persisted all of her??subsequent echoes. ?? 1 year follow-up with me unless needed sooner.?? May change to as needed after that visit. ? The above note was prepared with the help of voice recognition software. Please excuse any grammatical or spelling errors that may have occurred. ?? Thank you for involving me in the care of this patient. ??Please do not hesitate to contact me withquestions or concerns. ?? Eusebio Turcios MD [facility] [phone] ?? [address] [place] [address] Allergies Latex??(rash) Percocet 5/325 oxyCODONE??(vomiting passed out) Home Medications aspirin 81 mg oral delayed release tablet, 81 mg, By Mouth, Daily folic acid 1 mg oral tablet hydroxychloroquine 200 mg oral tablet, 200 mg= 1 tablet, By Mouth, Daily methotrexate 25 mg/mL injectable solution metoprolol 25 mg oral tablet, extended release, 25 mg= 1 tablet, By Mouth, Daily, 1 refills Nebulizer/Compressor, See Instructions Nebulizer/Compressor, See Instructions omeprazole 20 mg oral enteric coated capsule primidone 50 mg oral tablet, 25 mg= 0.5 tablet, By Mouth, Daily at bedtime Synthroid 0.05 mg oral tablet, 50 mcg= 1 tablet, By Mouth, Daily Tums 500 mg oral tablet, chewable, 500 mg= 1 tablet, Chew, 2 times a day, PRN Tylenol 325 mg oral tablet, 325 mg= 1 tablet, By Mouth, PRN Vitamin D3, By Mouth Lab Results Cardiology Labs WBC: 6.9 k/mm3 (09/09/22) RBC: 4.21 m/mm3 (09/09/22) Hgb: 12.8 Gm/dL (09/09/22) Hct: 39.8 % (09/09/22) MCV: 94.5 femtoliters (09/09/22) MCH: 30.4 pg (09/09/22) MCHC:??32.2 g/dL??Low (09/09/22) Platelet Count: 226 k/mm3 (09/09/22) RDW-SD:??51.1 femtoliters??High (09/09/22) Nucleated RBC (Automated): 0 #/100 WBC'S (09/09/22) Abs. Neut: 4.5 k/mm3 (09/09/22) Abs. Lymph: 1.4 k/mm3 (09/09/22) Abs. Trego: 0.7 k/mm3 (09/09/22) Abs. Eo: 0.3 k/mm3 (09/09/22) Abs. Baso: 0 k/mm3 (09/09/22) Neut %: 64.5 % (09/09/22) Trego %: 9.8 % (09/09/22) Eos %: 4.1 % (09/09/22) Baso %: 0.6 % (09/09/22) Imm Gran: 0.3 % (09/09/22) Abs. Imm Gran: 0 k/mm3 (09/09/22) Sodium: 135 mmol/L (07/12/22) Potassium: 4.6 mmol/L (07/12/22) Chloride:??96 mmol/L??Low (07/12/22) Bicarbonate Level: 29 mmol/L (07/12/22) Glucose Level: 77 mg/dL (07/12/22) BUN: 20 mg/dL (07/12/22) Creatinine-Blood: 0.9 mg/dL (07/12/22) Calcium: 9.5 mg/dL (07/12/22) Protein, Total: 6.5 Gm/dL (07/19/22) Albumin: 3.7 Gm/dL (07/19/22) Alkaline Phosphatase: 72 units/L (07/19/22) AST (SGOT): 21 units/L (07/19/22) ALT (SGPT): 12 units/L (07/19/22) Bilirubin, Total: 0.2 mg/dL (07/19/22) Nt-Probnp: 403 pg/mL (05/08/22) Cholesterol: 158 mg/dL (07/12/22) Triglycerides: 67 mg/dL (07/12/22) HDL Cholesterol: 54 mg/dL (07/12/22) LDL Cholesterol: 91 mg/dL (07/12/22) Non HDL Cholesterol: 104 mg/dL (07/12/22) TSH: 1.46 uIU/mL (07/12/22) Free T4: 1.69 ng/dL (07/12/22) Diagnostic Impression ECG ECG 12-Lead * Preliminary * ?? 12:46:16 Please click on pdf link to open report ?? ECG 12-Lead * Preliminary * ?? 12:46:16 Ventricular Rate: 70 BPM Atrial Rate: 70 BPM P-R Interval: 188 ms QRS Duration: 124 ms Q-T Interval: 424 ms QTC Calculation(Bazett): 457 ms P Hamer: 79 degrees R Hamer: 59 degrees T Hamer: 49 degrees Normal sinus rhythm Right bundle branch block Abnormal ECG When compared with ECG of 09-MAY-2022 06:57, Premature ventricular complexes are no longer Present QT has shortened ?? Laurens: , Stress Test NM Myocard Perf SPECT Multi ?? 07:30:00 Summary 1. Myocardial perfusion imaging is normal without any fixed or reversible perfusion defect after Regadenoson infusion. ?? 2. LV function is normal at rest and after IV administration of Regadenoson with normal wall motion and thickening. ?? 3. EKG portion of the stress test is reported separately. ?? Signatures _ _ ?? Signed By: Gareth Pickett MD Echo Echocardiogram - Complete ?? 07:19:33 Summary 1) The LV systolic function is [...] Rhythm is sinus rhythm with frequent PVCs ?? Comparison No prior study available for comparison. ?? Signature ?? 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 Social History Alcohol Use: Current. Frequency: 1-2 times per month. Employment/School Status: Retired. Exercise Self assessment: Fair condition. Home/Environment Living situation: Home/Independent. Lives with: Spouse. Nutrition/Health Diet: Regular. Sexual Sexually involved in last 6 months: Yes. Substance Abuse Use: Never. Tobacco Never smoker Family History No family history recorded. Patient Care team information Care Team Personnel Name: Kary Cavazos MD Position: Reference Physician Member Role: PCP Address: Address: [address] [place] [address]- Name: Aletha Mcghee RN Position: S RN Member Role: Primary Care Nurse Name: Laquita Fuller RN Position: S RN Member Role: Primary Care Nurse Care Team Related Persons Name: VINITA VIRAMONTES Address: [place] [address] Name: MAURI VIRAMONTES Address: home [address] [place] [address]
--- OUTSIDE RECORDS SUMMARY | 2023-12-31 09:32 | XMS_ITS | Continuity of Care Document ---
Author Organization [facility] Address [address] [place] [address]- Care Team Providers Care Furnace Cleaner Name Role Phone Kary Cavazos MD Primary Care Physician Encounter [facility] Date(s): 07/30/22 - 09/08/[address] [address] Attending Physician: Kary Cavazos MD Admitting Physician: Kary Cavazos MD Referring Physician: Kary Cavazos MD Allergies, Adverse Reactions, Alerts Substance Reaction Severity Status oxyCODONE vomiting passed out Active Latex rash Active Percocet 5/325 Active Medications aspirin 81 mg oral delayed release tablet 81 mg, By Mouth, Daily, # 90 tablet, Refills 0, Tot. Refills 0, Maintenance, 05/10/22 11:38:00 EST,Route to Pharmacy Electronically, [facility], Partial fill upon patient [...] 05/10/22 10:48:00 EST, Route to Pharmacy Electronically, [facility], Partial fill upon patient [...] 0, 0, 08/02/07 9:13:34, Print KINGSLEY Number, [id number], Constant Indicator Start Date: 08/02/07 Status: Ordered [...] Reference Physician Member Role: PCP Address: Address: [address] [place] [address]- Name: Aletha Mcghee RN Position: [facility] RN Member Role: Primary Care Nurse Name: Laquita Fuller RN Position: [facility] RN Member Role: Primary Care Nurse Care Team Related Persons Name: VINITA VIRAMONTES Address: [place] [address] Name: MAURI VIRAMONTES Address: home [address] [place] [address]
--- OUTSIDE RECORDS SUMMARY | 2023-12-31 09:32 | XMS_ITS | Continuity of Care Document ---
Author Organization [facility] Address [address] [place] [address]- Care Team Providers Care Gold Leaf Printer Name Role Phone Kary Cavazos MD Primary Care Physician [facility] Date(s): 06/23/23 - 10/21/23 [facility] [address] [place], [place] [id number]- Attending Physician: Eusebio Turcios MD Allergies, Adverse Reactions, Alerts Substance Reaction Severity Status Latex rash Active Percocet 5/325 Active oxyCODONE vomiting passed out Active Medications aspirin 81 mg oral delayed release tablet 81 mg, By Mouth, Daily, # 90 tablet, Refills 0, Tot. Refills 0, Maintenance, 05/10/22 11:38:00 EST,Route to Pharmacy Electronically, [facility], Partial fill upon patient [...] 05/10/22 10:48:00 EST, Route to Pharmacy Electronically, [facility], Partial fill upon patient [...] 0, 0, 08/02/07 9:13:34, Print KINGSLEY Number, [id number], Constant Indicator Start Date: 08/02/07 Status: Ordered [...] Physician Member Role: PCP Address: Address: [address] [place] [address] Name: Priya Champagne RN Position: S RN Member Role: Primary Care Nurse Name: Taz ERICKSON, Aletha Marlow Position: [facility] Associate Professional Member Role: Primary Care Nurse Address: Address: [address] [place] [address] [place] [address]- Name: Laquita Fuller RN Position: [facility] RN Member Role: Primary Care Nurse Care Team Related Persons Name: VINITA VIRAMONTES Address: [place] [address] Name: MAURI VIRAMONTES Address: home [address] [place] [address]
[2023-12-31] MEDS: Fluticasone/Vilanterol 200/25 BLST.W.DEV 1 PUFF INHALE (09:53)
--- NOTE | 2023-12-31 10:21 | P.PNIM_ITS ---
Subjective Subjective Date of Service: 12/31/23 Review of Systems Follow up stroke no c/o pain or discomfort Physical Exam 2 Vital Signs: Vital Signs: Last Vital Signs Temp 98.4 F 12/31/23 05:26 Pulse 71 12/31/23 08:24 Resp 20 12/31/23 05:26 BP 152/62 H 12/31/23 08:24 Pulse Ox 96 12/31/23 05:26 O2 Del Method Room Air 12/31/23 05:26 BMI result Body Mass Index 15.6 Appearing in no acute distress lung sounds are clear to auscultation heart regular rate rhythm, clear S1, S2 positive bowel sounds, abdomen is soft, nontender neuro patient is alert x3, no focal deficits 5/5 strength to upper and lower extremities Objective Data Active Medications Acetaminophen (Acetaminophen 325 Mg Tablet) 650 mg PO Q6H PRN PRN Reason: Pain, Mild (Pain Scale 1-3), fever or headache Last Admin: 12/30/23 21:29 Dose: 650 mg Documented By: JOSE Albuterol Sulfate (Albuterol Sulfate (0.083%) 2.5 Mg/3 Ml Vial.Neb) 2.5 mg INHALE Q6H PRN PRN Reason: shortness of breath or wheezing Amlodipine Besylate (Amlodipine Besylate 5 Mg Tablet) 5 mg PO DAILY [facility]; Protocol Last Admin: 12/31/23 05:39 Dose: 5 mg Documented By: JOSE Aspirin (Aspirin 81 Mg Tab.Chew) 81 mg PO DAILY [facility] Last Admin: 12/31/23 08:23 Dose: 81 mg Documented By: JULI Atorvastatin Calcium (Atorvastatin Calcium 40 Mg Tablet) 40 mg PO BEDTIME [facility] Calcium Carbonate (Calcium Carbonate 750 Mg Tab.Chew) 750 mg PO Q4H PRN PRN Reason: Heartburn Calcium Carbonate (Calcium Oyster Shell Elemental 500 Mg Tablet) 1,000 mg PO DAILY [facility] Last Admin: 12/31/23 08:23 Dose: 1,000 mg Documented By: JULI Fluticasone/Vilanterol (Fluticasone/Vilanterol 200/25 Blst.W.Dev) 1 puff INHALE RDAILY [facility] Last Admin: 12/31/23 09:53 Dose: 1 puff Documented By: JULI Folic Acid (Folic Acid 1 Mg Tablet) 1 mg PO DAILY [facility] Last Admin: 12/31/23 08:23 Dose: 1 mg Documented By: JULI Hydroxychloroquine Sulfate (Hydroxychloroquine Sulfate 200 Mg Tablet) 200 mg PO DAILY [facility] Last Admin: 12/31/23 08:24 Dose: 200 mg Documented By: JULI Levothyroxine Sodium (Levothyroxine Sodium 50 Mcg Tablet) 50 mcg PO DAILY@0600 [facility] Last Admin: 12/31/23 05:24 Dose: 50 mcg Documented By: JOSE Magnesium Hydroxide (Milk Of Magnesia 30 Ml Oral.Susp) 30 ml PO DAILY PRN PRN Reason: Constipation Melatonin (Melatonin 3 Mg Tablet) 6 mg PO BEDTIME PRN PRN Reason: Insomnia Metoprolol Succinate (Metoprolol Succinate Er 25 Mg Tab.Er.24h) 25 mg PO DAILY [facility]; Protocol Last Admin: 12/31/23 08:24 Dose: 25 mg Documented By: JULI Primidone (Primidone 50 Mg Tablet) 25 mg PO BEDTIME [facility] Last Admin: 12/30/23 21:29 Dose: 25 mg Documented By: JOSE Sodium Chloride (0.9 % Sodium Chloride Flush 3 Ml Syringe) 3 ml IVFLUSH QSHIFT [facility] Last Admin: 12/31/23 08:26 Dose: Not Given Documented By: JULI Non-Admin Reason: Med Not Available Vitamin D (Cholecalciferol (Vitamin D3) 25 Mcg Tablet) 25 mcg PO DAILY [facility] Last Admin: 12/31/23 08:24 Dose: 25 mcg Documented By: JULI Labs 12/31/23 08:27 12/31/23 08:27 Labs: Laboratory Results - last 24 hr 12/30/23 12/30/23 12/30/23 10:23 11:15 11:20 MCV MCH MCHC RDW Plt Count MPV Immature Gran % (Auto) Neut % (Auto) Lymph % (Auto) Mcclain % (Auto) Eos % (Auto) Baso % (Auto) Lymph # (Auto) Mcclain # (Auto) Eos # (Auto) Baso # (Auto) Abs Immat Gran (auto) Absolute Neuts (auto) Absolute Nucleated RBC Nucleated RBC % (auto) PT 12.7 Whole Blood PT 12.7 INR 1.0 Whole Blood INR 1.1 APTT 35.7 Anion Gap 12 Estim Creat Clear Calc 36.8 Estimated GFR > 60 POC Glucose Random Glucose 164 H Calcium 9.1 Total Bilirubin 0.3 AST 26 ALT 15 Alkaline Phosphatase 68 Total Protein 6.7 Albumin 3.4 L Triglycerides Cholesterol LDL Cholesterol, Calc HDL Cholesterol 12/30/23 12/31/23 11:21 08:27 MCV 89.6 MCH 29.5 MCHC 32.9 RDW 13.7 Plt Count 262 MPV 8.9 L Immature Gran % (Auto) 0.2 Neut % (Auto) 60.1 Lymph % (Auto) 20.3 Mcclain % (Auto) 8.7 Eos % (Auto) 9.8 H Baso % (Auto) 0.9 Lymph # (Auto) 1.1 L Mcclain # (Auto) 0.5 Eos # (Auto) 0.5 H Baso # (Auto) 0.1 Abs Immat Gran (auto) 0.01 Absolute Neuts (auto) 3.3 Absolute Nucleated RBC 0.000 Nucleated RBC % (auto) 0.0 PT Whole Blood PT INR Whole Blood INR APTT Anion Gap 11 L Estim Creat Clear Calc 36.8 Estimated GFR > 60 POC Glucose 100 Random Glucose 109 Calcium 9.3 Total Bilirubin 0.4 AST 27 ALT 16 Alkaline Phosphatase 71 Total Protein 6.8 Albumin 3.5 Triglycerides 51 Cholesterol 153 LDL Cholesterol, Calc 90 HDL Cholesterol 53 Assessment and Plan (1) Facial droop: Status: Acute Plan 83-year-old woman placed on observation for complaints of hand weakness and heaviness concern for TIA versus stroke Stroke Head CT and CTA showed no evidence of acute intracranial hemorrhage or infarction, CTA without proximal occlusion or flow-limiting stenosis MRI>Focal acute infarction, punctuate acute infarct in cortical juarez matter of left parietal lobe Neurology consultation Echo PT/OT Stroke education normal lipid panel Asthma/COPD overlap Continue nebulizers as needed Hypertension Continue metoprolol Hypothyroidism Continue levothyroxine DVT prophylaxis with pneumatic compression boots Attending Dr. Moore Full code Quality Stroke Does the patient have a stroke diagnosis?: No VTE Prior VTE?: No VTE Risk Level:: Medical - moderate - high VTE Device Contraindication: N/A - Device Ordered VTE Drug Contraindication: Treatment Not Indicated
--- NOTE | 2023-12-31 18:25 | PC.NURSE ---
transfered to hospital bed. family present.
--- NOTE | 2023-12-31 19:24 | PC.NURSE ---
184 received report from Jania HAMPTON, assume care of pt at this time
[2023-12-31] MEDS: Acetaminophen 325 MG TABLET 650 MG PO (19:34)
[2023-12-31] MEDS: Atorvastatin Calcium 40 MG TABLET PO (20:23)
[2023-12-31] MEDS: Primidone 50 MG TABLET 25 MG PO (20:55)
[2024-01-01] VITALS (8 sets, daily range): BP systolic 128–154; BP diastolic 58–75; PULSE 62–78; RESP 14–18; TEMP 36.2–36.6; O2SAT 95–99; BMI 17.1
--- NOTE | 2024-01-01 07:00 | CA_ITS ---
Transthoracic Echocardiogram Patient (Last, First, Middle): Mckenna Underwood, Gender: Female Date of : 1940 Age: 83 Procedure Date: 01/01/2024 Procedure Type: Transthoracic Echocardiogram Location: ER Height: 162.56 cm Weight: 40.82 kg BSA: 1.39 m2 Heart Rate: 65 bpm BP: 148 / 61 mmHg Garage Helper: LAURO Referring MD: Carin Granados NP Sleeping Bag Filler: Devin Guajardo MD Symptoms: stroke Study Quality: Adequate ECG Rhythm: Sinus Conclusions: - 1. Normal LV ejection fraction of 65-70% with pseudonormal filling pattern 2. Mild aortic regurgitation 3. Normal RV systolic pressure 4. No gross pericardial effusion Findings Left Ventricle Normal left ventricular size, thickness, and systolic function. The visually estimated ejection fraction is between 65-70%. Spectral Doppler is indicative of a pseudonormal filling pattern. E/E prime ratio is between 8 and 15 consistent with indeterminate filling pressures. Right Ventricle Normal right ventricular cavity size and systolic function. Atria Both atria are normal in size. There is no evidence of interatrial shunt. Aortic Valve The aortic valve was not well visualized. There is mild calcification of the aortic valve. There is no aortic valve stenosis. There is mild aortic valve regurgitation. Mitral Valve There is mild anterior and posterior mitral leaflet thickening. There is trace mitral valve regurgitation. There is no mitral valve stenosis. Pulmonic Valve The pulmonic valve was not well visualized. Tricuspid Valve Likely normal tricuspid valve structure and function. There is trace tricuspid valve regurgitation. The right ventricular systolic pressure is normal. The right ventricular systolic pressure is 25 mmHg. Normal right atrial pressure. There is no evidence of pulmonary hypertension. Great Vessels The aorta was not well visualized. The pulmonary artery was not well visualized. Venous The inferior vena cava is normal in size and collapses greater than 50% with inspiration. Pericardium/Pleural There is no evidence of pericardial effusion. Prior Study Comparison No prior study available for comparison. Measurements 2D Linear Measurements IVSd: 0.85 0.6-0.9/0.6-1.0 cm LVIDd: 3.40 3.9-5.3/4.2-5.9 cm LVIDd Index: 2.45 2.4-3.2/2.2-3.1 cm/m2 LVIDs: 2.13 2.0-3.6 cm LVPWd: 0.66 0.7-1.1 cm LA Diam: 1.90 2.7-3.8/3.0-4.0 cm LAIDs Index: 1.37 1.5-2.3 cm/m2 LV Mass: 82.23 67-162/88-224 g LV Mass Index: 59.16 43-95/49-115 g/m2 LVOT Diam: 1.70 3.0+(-)1.3 cm 2D Systolic Function EF 4C: 60.30 >55% EF 2C: 70.60 >55% Mitral Valve MV Pk E: 0.66 MV PK A: 0.55 MV Decel Time: 239.00 E/A: 1.20 E'Lateral: 5.22 E'Medial: 5.33 E/E' Med: 12.30 E/E' Lat: 12.60 PHT: 70.00 MVA PHT: 3.14 Decel Mingo: 2.74 Aortic Valve AoV Pk Ten: 1.18 AoV Mn Ten: 0.80 AoV VTI: 0.23 AoV Pk Grad: 6.00 Aov Mn Grad: 3.00 PRESTON Cont.VTI: 1.90 AI Pk Ten: 4.12 AI VTI: 2.16 AI Mingo: 2.47 LVOT LVOT Pk Ten: 0.93 LVOT Mn Ten: 0.64 LVOT VTI: 0.20 LVOT Pk Grad: 3.00 LVOT Mn Grad: 2.00 LVOT Diam: 1.70 LVOT Area: 2.27 Diastolic Function MV Pk E: 0.66 MV Pk A: 0.55 E/A: 1.20 E'Medial: 5.33 E/E' Med: 12.30 E' Laterial: 5.22 E/E' Lat: 12.60 Right Ventricle TAPSE (mm): 16.50 TVS' Ten: 9.95 Tricuspid Valve TR Pk Ten: 2.33 TR Pk Grad: 22.00 RA Press: 3.00 RVSP: 25.00 Great Vessels Aorta Sinus of Valsalva: 3.00 2.0-3.5 cm Pulmonary Valve PV Pk Ten: 0.76 Peak PV Grad: 2.00 Updated in Other Vendor System with Status of Final Devin Guajardo MD electronically signed on 01/01/2024 1:55:23 PM with status of Final
--- NOTE | 2024-01-01 07:02 | PC.NURSE ---
report given to Manisha HAMPTON
--- NOTE | 2024-01-01 07:40 | PC.NURSE ---
pt is alert and oriented, skin pwd, respirations even and unlabored, pt denies pain/dizziness but is reporting tingling in the bilateral toes states that this has happened to her in the past, speech is clear/no visible droop/no drift and hand grasp strong and equal, moving all extremities. vs stable and ns on the monitor previous nurse states that pt is NPO and held the pt's levothyroxine, the diet order is low sodium no NPO order listed, gave the levothyroxine unscheduled
[2024-01-01] MEDS: Levothyroxine Sodium 50 MCG TABLET PO (07:48)
[2024-01-01] MEDS: Fluticasone/Vilanterol 200/25 BLST.W.DEV 1 PUFF INHALE (08:47)
[2024-01-01] MEDS: 0.9 % Sodium Chloride Flush 3 ML SYRINGE IVFLUSH ×3 (10:04→23:17)
[2024-01-01] MEDS: Hydroxychloroquine Sulfate 200 MG TABLET PO (10:05)
[2024-01-01] MEDS: amLODIPine Besylate 5 MG TABLET PO (10:05)
[2024-01-01] MEDS: Folic Acid 1 MG TABLET PO (10:05)
[2024-01-01] MEDS: Metoprolol Succinate ER 25 MG TAB.ER.24H PO (10:05)
[2024-01-01] MEDS: Aspirin 81 MG TAB.CHEW PO (10:05)
[2024-01-01] MEDS: Calcium Oyster Shell Elemental 500 MG TABLET 1000 MG PO (10:06)
[2024-01-01] MEDS: Cholecalciferol (Vitamin D3) 25 MCG TABLET PO (10:06)
--- NOTE | 2024-01-01 10:54 | MHC.STROKE ---
Met with patient in ED 19. Pt awake, alert and oriented x 3. Answersing questions appropriately. Engaged in conversation. Tolerating po and passed nursing bedside swallow eval this morning. Pt reports that she has a neurologist that she sees every 6 months. She reports that she has had swallowing issues in the past and this is her baseline. Patient reports a narrowed esophagus. Today patient feels that her right arm is back to baseline. She is able to hold her cup and spoon etc. Her speech is clear. Stroke Education reviewed with patient. We reviewed both the stroke pamphlet and also visual aides that were provided to the patient. We discussed risk factors as well. All questions were answered. Will continue to assist as needed.
--- NOTE | 2024-01-01 11:34 | P.PNIM_ITS ---
Subjective Subjective Date of Service: 01/01/24 Review of Systems Follow up stroke no c/o pain or discomfort Physical Exam 2 Vital Signs: Vital Signs: Last Vital Signs Temp 97.8 F 01/01/24 11:29 Pulse 65 01/01/24 11:29 Resp 16 01/01/24 11:29 BP 129/59 L 01/01/24 11:29 Pulse Ox 96 01/01/24 11:29 O2 Del Method Room Air 01/01/24 11:29 BMI result Body Mass Index 15.6 Appearing in no acute distress lung sounds are clear to auscultation heart regular rate rhythm, clear S1, S2 positive bowel sounds, abdomen is soft, nontender neuro patient is alert x3, no focal deficits Objective Data Active Medications Acetaminophen (Acetaminophen 325 Mg Tablet) 650 mg PO Q6H PRN PRN Reason: Pain, Mild (Pain Scale 1-3), fever or headache Last Admin: 12/31/23 19:34 Dose: 650 mg Documented By: JULI Albuterol Sulfate (Albuterol Sulfate (0.083%) 2.5 Mg/3 Ml Vial.Neb) 2.5 mg INHALE Q6H PRN PRN Reason: shortness of breath or wheezing Amlodipine Besylate (Amlodipine Besylate 5 Mg Tablet) 5 mg PO DAILY [facility]; Protocol Last Admin: 01/01/24 10:05 Dose: 5 mg Documented By: LUPE Aspirin (Aspirin 81 Mg Tab.Chew) 81 mg PO DAILY [facility] Last Admin: 01/01/24 10:05 Dose: 81 mg Documented By: LUPE Atorvastatin Calcium (Atorvastatin Calcium 40 Mg Tablet) 40 mg PO BEDTIME [facility] Last Admin: 12/31/23 20:23 Dose: 40 mg Documented By: RENATA Calcium Carbonate (Calcium Carbonate 750 Mg Tab.Chew) 750 mg PO Q4H PRN PRN Reason: Heartburn Calcium Carbonate (Calcium Oyster Shell Elemental 500 Mg Tablet) 1,000 mg PO DAILY [facility] Last Admin: 01/01/24 10:06 Dose: 1,000 mg Documented By: LUPE Fluticasone/Vilanterol (Fluticasone/Vilanterol 200/25 Blst.W.Dev) 1 puff INHALE RDAILY [facility] Last Admin: 01/01/24 08:47 Dose: 1 puff Documented By: TONY Folic Acid (Folic Acid 1 Mg Tablet) 1 mg PO DAILY [facility] Last Admin: 01/01/24 10:05 Dose: 1 mg Documented By: LUPE Hydroxychloroquine Sulfate (Hydroxychloroquine Sulfate 200 Mg Tablet) 200 mg PO DAILY [facility] Last Admin: 01/01/24 10:05 Dose: 200 mg Documented By: LUPE Levothyroxine Sodium (Levothyroxine Sodium 50 Mcg Tablet) 50 mcg PO DAILY@0600 [facility] Last Admin: 01/01/24 07:48 Dose: 50 mcg Documented By: LUPE Magnesium Hydroxide (Milk Of Magnesia 30 Ml Oral.Susp) 30 ml PO DAILY PRN PRN Reason: Constipation Melatonin (Melatonin 3 Mg Tablet) 6 mg PO BEDTIME PRN PRN Reason: Insomnia Metoprolol Succinate (Metoprolol Succinate Er 25 Mg Tab.Er.24h) 25 mg PO DAILY [facility]; Protocol Last Admin: 01/01/24 10:05 Dose: 25 mg Documented By: LUPE Primidone (Primidone 50 Mg Tablet) 25 mg PO BEDTIME [facility] Last Admin: 12/31/23 20:55 Dose: 25 mg Documented By: RENATA Sodium Chloride (0.9 % Sodium Chloride Flush 3 Ml Syringe) 3 ml IVFLUSH QSHIFT [facility] Last Admin: 01/01/24 10:04 Dose: 3 ml Documented By: LUPE Vitamin D (Cholecalciferol (Vitamin D3) 25 Mcg Tablet) 25 mcg PO DAILY [facility] Last Admin: 01/01/24 10:06 Dose: 25 mcg Documented By: LUPE Labs 12/31/23 08:27 12/31/23 08:27 Assessment and Plan (1) Facial droop: Status: Acute Plan 83-year-old woman placed on observation for complaints of hand weakness and heaviness concern for TIA versus stroke Stroke Head CT and CTA showed no evidence of acute intracranial hemorrhage or infarction, CTA without proximal occlusion or flow-limiting stenosis MRI>Focal acute infarction, punctuate acute infarct in cortical juarez matter of left parietal lobe Neurology consultation pending Echo pending PT/OT>rec STR Stroke education normal lipid panel Asthma/COPD overlap Continue nebulizers as needed Hypertension Continue metoprolol Hypothyroidism Continue levothyroxine DVT prophylaxis with Lovenox Attending Dr. Ragsdale Full code Quality Stroke Does the patient have a stroke diagnosis?: No VTE Prior VTE?: No VTE Risk Level:: Medical - moderate - high VTE Device Contraindication: N/A - Device Ordered VTE Drug Contraindication: Treatment Not Indicated
--- NOTE | 2024-01-01 11:58 | P.CNNE_ITS ---
History of Present Illness Data of Consult Service Date: 01/01/24 Primary Care Provider: Kary Cavazos MD [facility] Reason for consult: Stroke This is a 83 yo female with history of RA on methotrexate, asthma/COPD, pulmonary nodules, cognitive dysfunction who presents to the ER for re- evaluation of right hand heaviness. She states it feels like ?lead. ? She denied any trauma or injury. Apparently she spoke to a family member around 19:00 last night and told them that her hand was not working right. When a family member arrived she was unable to open the door with her right hand. She presented to [facility] [place] last evening, had a negative CT scan and was discharged home. She presented again with the same symptoms. She had a head CT and CTA both negative for any acute abnormalities. MRI shows an acute left frontal and pariatal white matter infarct. Family r also noted a facial droop and difficulty with ambulation. [facility] Past Medical History Medical History Stroke Pneumonia Chronic cough Bronchiolitis Pulmonary nodules Atelectasis Asthma-COPD overlap syndrome Family History Family History Father Heart disease Lung disease Dementia Son Epilepsy Surgical History Surgical History Hx of neck surgery History of back surgery H/O: hysterectomy Hx of appendectomy Social History Social History Alcohol intake: never Patient Tobacco Use Status: Former Tobacco user Tobacco use type: Cigarette Cigarette Packs Per Day: 1 Years Smoked: 4 Meds Allergies Allergy/AdvReac Type Severity Reaction Status Date / Time Opiates Allergy Intermediate Itch and Uncoded 12/30/23 09:37 Hives Active Medications: Current Medications Acetaminophen (Acetaminophen 325 Mg Tablet) 650 mg PO Q6H PRN PRN Reason: Pain, Mild (Pain Scale 1-3), fever or headache Last Admin: 12/31/23 19:34 Dose: 650 mg Albuterol Sulfate (Albuterol Sulfate (0.083%) 2.5 Mg/3 Ml Vial.Neb) 2.5 mg INHALE Q6H PRN PRN Reason: shortness of breath or wheezing Amlodipine Besylate (Amlodipine Besylate 5 Mg Tablet) 5 mg PO DAILY [facility]; Protocol Last Admin: 01/01/24 10:05 Dose: 5 mg Aspirin (Aspirin 81 Mg Tab.Chew) 81 mg PO DAILY [facility] Last Admin: 01/01/24 10:05 Dose: 81 mg Atorvastatin Calcium (Atorvastatin Calcium 40 Mg Tablet) 40 mg PO BEDTIME [facility] Last Admin: 12/31/23 20:23 Dose: 40 mg Calcium Carbonate (Calcium Carbonate 750 Mg Tab.Chew) 750 mg PO Q4H PRN PRN Reason: Heartburn Calcium Carbonate (Calcium Oyster Shell Elemental 500 Mg Tablet) 1,000 mg PO DAILY [facility] Last Admin: 01/01/24 10:06 Dose: 1,000 mg Enoxaparin Sodium (Enoxaparin Sodium 40 Mg/0.4 Ml Syringe) 40 mg SUBCUT Q24H [facility] Fluticasone/Vilanterol (Fluticasone/Vilanterol 200/25 Blst.W.Dev) 1 puff INHALE RDAILY [facility] Last Admin: 01/01/24 08:47 Dose: 1 puff Folic Acid (Folic Acid 1 Mg Tablet) 1 mg PO DAILY [facility] Last Admin: 01/01/24 10:05 Dose: 1 mg Hydroxychloroquine Sulfate (Hydroxychloroquine Sulfate 200 Mg Tablet) 200 mg PO DAILY [facility] Last Admin: 01/01/24 10:05 Dose: 200 mg Levothyroxine Sodium (Levothyroxine Sodium 50 Mcg Tablet) 50 mcg PO DAILY@0600 [facility] Last Admin: 01/01/24 07:48 Dose: 50 mcg Magnesium Hydroxide (Milk Of Magnesia 30 Ml Oral.Susp) 30 ml PO DAILY PRN PRN Reason: Constipation Melatonin (Melatonin 3 Mg Tablet) 6 mg PO BEDTIME PRN PRN Reason: Insomnia Metoprolol Succinate (Metoprolol Succinate Er 25 Mg Tab.Er.24h) 25 mg PO DAILY [facility]; Protocol Last Admin: 01/01/24 10:05 Dose: 25 mg Primidone (Primidone 50 Mg Tablet) 25 mg PO BEDTIME [facility] Last Admin: 12/31/23 20:55 Dose: 25 mg Sodium Chloride (0.9 % Sodium Chloride Flush 3 Ml Syringe) 3 ml IVFLUSH QSHIFT [facility] Last Admin: 01/01/24 10:04 Dose: 3 ml Vitamin D (Cholecalciferol (Vitamin D3) 25 Mcg Tablet) 25 mcg PO DAILY [facility] Last Admin: 01/01/24 10:06 Dose: 25 mcg Home Medications ?Medication ?Instructions ?Recorded ?Confirmed ?Last Taken ?Type folic acid 1 mg tablet 1 mg PO DAILY 02/13/20 12/30/23 12/29/23 History hydroxychloroquine 200 mg tablet 200 mg PO DAILY 02/13/20 12/30/23 12/29/23 History methotrexate sodium (PF) 25 mg/mL 12.5 mg subcut FR 02/13/20 12/30/23 12/22/23 History injection solution levothyroxine 50 mcg tablet 50 mcg PO DAILY 06/22/22 12/30/23 12/29/23 History metoprolol succinate 25 mg 25 mg PO DAILY 06/22/22 12/30/23 12/29/23 History tablet,extended release 24 hr nebulizers 06/22/22 12/28/23 Unknown History acetaminophen 325 mg capsule 325 mg PO QID PRN Pain 07/04/22 12/30/23 Unknown History (Tylenol) calcium carbonate (Calcium 500) 1,000 mg PO DAILY 07/04/22 12/30/23 12/29/23 History budesonide-formoterol HFA 160 2 puff PO DAILY 12/30/23 12/30/23 Unknown History mcg-4.5 mcg/actuation aerosol inhaler cholecalciferol (vitamin D3) 25 25 mcg PO DAILY 12/30/23 12/30/23 12/29/23 History mcg (1,000 unit) capsule Physical Exam 2 Vital Signs: Vital Signs: Last Vital Signs Temp 97.8 F 01/01/24 11:29 Pulse 65 01/01/24 11:29 Resp 16 01/01/24 11:29 BP 129/59 L 01/01/24 11:29 Pulse Ox 96 01/01/24 11:29 O2 Del Method Room Air 01/01/24 11:29 BMI result Body Mass Index 15.6 Neuro: Other: She is alert and oriented with normal intellectual functions are normal. Cranial nerves with no facial droop. Speech is fairly clear with no dysphagia. Visual wray are full. Her strength is normal in the upper extremities with no drift and no perceptible right lower extremity weakness although she still feels that it is a bit heavy. Reflexes are hypoactive and plantar response are flexor Results Labs 12/31/23 08:27 12/31/23 08:27 Assessment and Plan (1) Right hand weakness: Status: Acute Acute ischemic infarct in the Left frontal subcortical white matter and Some parietal lobe punctate areas of ischemia. CTA does not show any significant stenosis or occlusions. 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 Recommendations: PT/ OT. Aspirin 81 mg every other day Procedures Date of Service Date of Service: 01/01/24
[2024-01-01] MEDS: Enoxaparin Sodium 40 MG/0.4 ML SYRINGE SUBCUT (13:30)
--- NOTE | 2024-01-01 13:38 | MHC.CM.PN ---
[facility] ,SHE MOVED IN ABOUT 2 WEEKS AGO SHE HAS NO SERVIES ,SHE DOES HAVE TRANSPORTATION BACK WHEN DCD DC PLAN RETURN TO [facility]
--- NOTE | 2024-01-01 16:06 | MHC.CM.PN ---
PT recommending STR, OT recommending AR. CM reviewed w/ patient. Referrals to local AR's. If no accepting AR, would like to go to [facility], referral in place. Patient reports she has an HCP. Copy requested.
--- NOTE | 2024-01-01 16:33 | MHC.CLN ---
NUTRITION CONSULT FOR WEIGHT LOSS, POOR APPETITE, USES SUPPLEMENTS. DIET=2 GRAM SODIUM, CHOPPED PER BANKRUPTCY LEGAL ASSISTANT. REVIEW OF WEIGHT HX SHOWS NO SIGNIFICANT WEIGHT LOSS X >1 YEAR. LIMITED PO DOC SHOWS 1 MEAL 50%, 2 MEALS 100%. WOULD LIKE ENSURE 2 TIMES DAILY. SUPPLEMENT PROVIDES 700 KCALS, 40 G PROTEIN. QUALIFIES MODERATELY MALNOURISHED IN THE CONTEXT OF CHRONIC ILLNESS. SUPPLEMENT APPROPRIATE TO PROMOTE NUTRITIONAL INTAKE. FOLLOW FOR INTAKE AND WEIGHT. SEE CLINICAL NUTRITION ASSESSMENT 01/01/24.
--- NOTE | 2024-01-01 17:01 | MHC.SL.SWA ---
Speech Pathologist Impression: Mild Oropharyngeal Dysphagia Risk of Aspiration Due to: Weak Voice Dysphasia Diet Status: DOWNGRADE solids to NDD3 Liquid Consistency and Strategies for Safe Swallow: Liquid Intake Recommendation: Thin Liquid Intake Strategies: Small Sips No Straws Solid Food Consistency: Dietary Recommendations: Chopped/Advanced (NDD3) Additional Modifications to Solid Foods: Patient with mild oropharyngeal dysphagia, characterized by slowed period of mastication and mild residuals on harder solids, which she was able to clear with a dry swallow or liquid wash. Additionally, patient reported having prior history of swallow difficulty for years , with coughing on liquids. No difficulties noted today as BODY STRAIGHTENER observed patient drinking cup of water. BODY STRAIGHTENER discussed with patient general aspiration precautions: taking small bites, alternating bites with sips of liquid, taking one sip at a time, avoiding the use of straws, maintaining upright 90 degree positioning when eating/drinking. Recommend DOWNGRADE to CHOPPED/ADVANCED diet (NDD3) as patient reports needing her food to be cut into small pieces, continue on THIN liquids, pills to be administered WHOLE with LIQUID or PUREE per patient's tolerance. Patient was able to feed herself without difficulty. Oral Medication Intake: Whole with Liquid Please contact the pharmacy regarding appropriate crushable or liquid drug formulations that are available whenever modified delivery is recommended. Compensatory Strategies and Precautions to be Taken for Safe Swallow: Sitting Upright (90 deg) Double Swallow No Straw Small Bites and Sips Alternate Liquids/Solids Rate of Ingestion Change Avoid Specific Foods Supervision While Eating and Drinking for Safe Swallow: None Needed Foods to Avoid: [place] hard or chewy foods Swallowing Recommended Treatments: Compens. Strategy Educat. Recommendation for Speech: Inpatient Speech Therapy Comment: 1-2 f/u Frequency/Duration: Date Range for Service Req: Timeline to reassess: Conference Center Manager Clinican/Clinical Fellow: No Supervisory Statement: I have reviewed and agree with the student/clinical fellow's documentation: N/A Speech Language Pathologist: Argelia Rivera M.A., CCC-BODY STRAIGHTENER
--- NOTE | 2024-01-01 19:07 | PC.NURSE ---
Patient wanted Tylenol for leg cramps, rated pain 5/10,
[2024-01-01] MEDS: Primidone 50 MG TABLET 25 MG PO (21:09)
[2024-01-01] MEDS: Atorvastatin Calcium 40 MG TABLET PO (21:09)
[2024-01-01] MEDS: Melatonin 3 MG TABLET 6 MG PO (21:09)
[2024-01-02 03:09] VITALS: BP 121/60; PULSE 63; RESP 16; TEMP 36; O2SAT 96
[2024-01-02] MEDS: Levothyroxine Sodium 50 MCG TABLET PO (05:09)
[2024-01-02 07:29] VITALS: BP 129/62; PULSE 68; RESP 16; TEMP 36.6; O2SAT 94
[2024-01-02] MEDS: Calcium Oyster Shell Elemental 500 MG TABLET 1000 MG PO (08:44)
[2024-01-02] MEDS: 0.9 % Sodium Chloride Flush 3 ML SYRINGE IVFLUSH (08:45)
[2024-01-02] MEDS: Metoprolol Succinate ER 25 MG TAB.ER.24H PO (08:45)
[2024-01-02] MEDS: Folic Acid 1 MG TABLET PO (08:45)
[2024-01-02] MEDS: Cholecalciferol (Vitamin D3) 25 MCG TABLET PO (08:45)
[2024-01-02] MEDS: Hydroxychloroquine Sulfate 200 MG TABLET PO (08:45)
[2024-01-02] MEDS: Aspirin 81 MG TAB.CHEW PO (08:45)
[2024-01-02] MEDS: amLODIPine Besylate 5 MG TABLET PO (08:45)
[2024-01-02] MEDS: Fluticasone/Vilanterol 200/25 BLST.W.DEV 1 PUFF INHALE (08:59)
[2024-01-02 09:02] VITALS: PULSE 76; RESP 16
--- NOTE | 2024-01-02 09:10 | MHC.CM.PN ---
Per BUDGET ACCOUNTANT patient medically cleared for dc to acute rehab. Patient will transfer to [facility] at 1pm via BLS. CM informed son per patient request. RN/BUDGET ACCOUNTANT aware.
--- NOTE | 2024-01-02 10:51 | P.DS_ITS ---
DS: Providers Provider Date of Service: 01/02/24 Date of admission: 12/30/23 13:50 Primary care physician: Kary Cavazos MD Consults: 12/30/23 13:59 Consult to Neurology Routine Consulting Provider: [facility] Reason for consultation: hand heaviness, ? tia vs stroke DS: Diagnosis Discharge Diagnosis (1) Right hand weakness: Status: Acute DS: Summary Hospital Course Hospital Course: History and physical as per admitting provider. 83 yo female with history of RA on methotrexate, asthma/COPD, pulmonary nodules, cognitive dysfunction who presents to the ER for re-evaluation of right hand heaviness. She states it feels like ?lead. ? More recently the patient has been in the process of moving, lifting boxes. Apparently she has been under some stress due to this. She denied any trauma or injury. Apparently she spoke to a family member around 19:00 last night and told them that her hand was not working right. One family member arrived she was unable to open the door with her right hand. She presented to [facility] last evening, had a negative CT scan and charged home. She presented again with the same symptoms. She had a head CT and CTA both negative for any acute abnormalities. Family reported that they noted a facial droop as well and difficulty with ambulation since last night. Labs within acceptable limits, vital signs stable. Plan is to place patient in observation for possible TIA versus stroke 83-year-old woman treated for acute stroke. MRI showing focal acute infarction, punctuate acute infarct and cortical juarez matter of left parietal lobe. CTA showed no significant stenosis or occlusions. She was noted to have normal lipid panel, echocardiogram showed normal EF of 65-70% with mild aortic regurgitation, normal RV systolic pressure. Seen evaluated by Neurology who recommended aspirin. She was seen evaluated by Physical therapy who recommended acute rehab. And is to transfer to rehab and patient is in agreement with this. Asthma/COPD overlap. Continue inhalers as needed Hypertension. Continue metoprolol Hypothyroidism. Continue levothyroxine Time Attestation Discharge Coordination Time (in mins): 35 Quality: Safe Use of Opioids Does Pt have an Active Cancer Diagnosis on the Problem List?: No Quality: Stroke Does the patient have a stroke diagnosis?: No Physical Exam Vital Signs: Vital Signs: Last Vital Signs Temp 97.8 F 01/02/24 07:29 Pulse 76 01/02/24 09:02 Resp 16 01/02/24 09:02 BP 129/62 01/02/24 07:29 Pulse Ox 94 01/02/24 07:29 O2 Del Method Room Air 01/02/24 07:29 BMI result Body Mass Index 17.1 Appearing in no acute distress head is normocephalic atraumatic eyes pupils are PERRLA sclera is anicteric mouth throat mucous membranes are intact and moist neck is supple no lymphadenopathy, no JVD noted lung sounds are clear to auscultation heart regular rate rhythm, clear S1, S2 positive bowel sounds, abdomen is soft, nontender neuro patient is alert x3, no focal deficits Discharge Plan Discharge Anticipated Discharge Date/Time: 01/02/24 09:44 Patient Disposition: Xfer Inpatient Rehab Fac Discharge Diagnosis: Stroke Referrals: Kary Cavazos MD [Primary Care Provider] - 1 Week Discharge Medications: Continued albuterol sulfate 2.5 mg /3 mL (0.083 %) solution for nebulization 2.5 mg inhalation Q6H PRN (Reason: shortness of breath or wheezing) 30 Days Qty: 180 11RF cholecalciferol (vitamin D3) 25 mcg (1,000 unit) Capsule 25 mcg PO DAILY budesonide-formoterol 160-4.5 mcg/actuation HFA aerosol inhaler 2 puff PO DAILY methotrexate sodium (PF) 25 mg/mL solution 12.5 mg subcut FR folic acid 1 mg tablet 1 mg PO DAILY hydroxychloroquine 200 mg tablet 200 mg PO DAILY metoprolol succinate 25 mg tablet extended release 24 hr 25 mg PO DAILY levothyroxine 50 mcg tablet 50 mcg PO DAILY (DME) nebulizers Misc See Rx Instructions .Route Rx Instructions: As directed calcium carbonate [Calcium 500] 500 mg calcium (1,250 mg) tablet,chewable 1,000 mg PO DAILY acetaminophen [Tylenol] 325 mg capsule 325 mg PO QID PRN (Reason: Pain) primidone 50 mg tablet 25 mg PO BEDTIME 90 Days Qty: 90 1RF Rx Instructions: May take extra 1/2 tab per day prn tremor Discharge Orders: Discharge Order (Routine); Ordered 01/02/24 Ordered By: Carin Granados Diet: Advance to usual diet Activity on Discharge: As tolerated Stand Alone Forms: Patient Portal Discharge page Print Language: Bermudian Care Plan Goals: Transfer to acute rehab Health Concerns: Stroke Plan of Treatment: Follow-up with primary care provider as needed Take all medications as prescribed Assessment: See discharge summary
--- NOTE | 2024-01-02 11:21 | MHC.SPEECHCO ---
CORROSION CONTROL ENGINEER recommending upgrade to Regular Solids for Lunch prior to anticipated discharge at 1pm. CM notified in person.
[2024-01-02 11:42] VITALS: BP 113/74; PULSE 68
[2024-01-02] MEDS: Enoxaparin Sodium 40 MG/0.4 ML SYRINGE SUBCUT (12:29)
== END 2024-01-02 13:34 | DRG 65 ==
LOC: HO.ED 12:25 → HO.EDOVER 12-31 07:52 → HO.S3 01-01 09:36
PROVIDERS: Physician Assistant; Admitting Provider Nurse Practitioner Acute Care; Emergency Provider Emergency Medicine; PCP Student in an Organized Health Care Education/Training Program; Visit Provider Nurse Practitioner Acute Care
DX: I63.9 Cerebral infarction, unspecified (principal); E44.0 Moderate protein-calorie malnutrition; Z68.1 Body mass index [BMI] 19.9 or less, adult; R29.810 Facial weakness; G83.21 Monoplegia of upper limb affecting right dominant side; M06.9 Rheumatoid arthritis, unspecified; R29.705 NIHSS score 5; J44.9 Chronic obstructive pulmonary disease, unspecified; I10 Essential (primary) hypertension; E03.9 Hypothyroidism, unspecified; Z87.891 Personal history of nicotine dependence; Z79.631 Long term (current) use of antimetabolite agent; Z79.890 Hormone replacement therapy; Z79.899 Other long term (current) drug therapy
CPT/HCPCS: 36415; 70450; 70496; 70498; 70551; 80053; 80061; 81003; 82947; 83735; 84484; 85025; 85610; 85730; 92526; 92610; 93005; 93306; 94640; 97116; 97162; 97166; 99221; 99284; 99285; J1650; Q9967

== ENCOUNTER 2023-12-30 13:50 | Outpatient (BNV) | payer MEDICARE, SELFPAY | END 2024-01-01 07:00 | PROVIDERS: Admitting Provider Nurse Practitioner Acute Care; Emergency Provider Emergency Medicine; PCP Student in an Organized Health Care Education/Training Program; Visit Provider Internal Medicine Cardiovascular Disease | DX: I35.1 Nonrheumatic aortic (valve) insufficiency (principal) | CPT/HCPCS: 93306 ==

== ENCOUNTER → 2023-12-30 13:50 | Outpatient (BNV) | payer MEDICARE, SELFPAY | PROVIDERS: Admitting Provider Nurse Practitioner Acute Care; Emergency Provider Emergency Medicine; PCP Student in an Organized Health Care Education/Training Program; Visit Provider Nurse Practitioner Acute Care | DX: R29.810 Facial weakness (principal) | CPT/HCPCS: 99222; 99232; 99239 ==

== ENCOUNTER → 2023-12-30 13:50 | Outpatient (BNV) | payer MEDICARE, SELFPAY | PROVIDERS: Admitting Provider Nurse Practitioner Acute Care; Emergency Provider Emergency Medicine; PCP Student in an Organized Health Care Education/Training Program; Visit Provider Psychiatry & Neurology Neurology | DX: I63.9 Cerebral infarction, unspecified (principal) | CPT/HCPCS: 99222 ==

== ENCOUNTER 2024-02-28 09:48 | Outpatient (AMB) | payer MEDICARE, SELFPAY ==
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
[2024-02-28 09:55] VITALS: BP 122/60; PULSE 69; O2SAT 95; BMI 16.6
== END 2024-02-28 10:20 | disposition home or self-care (01) ==
PROVIDERS: PCP Student in an Organized Health Care Education/Training Program; Visit Provider Hospitalist
DX: J45.41 Moderate persistent asthma with (acute) exacerbation (principal); J44.9 Chronic obstructive pulmonary disease, unspecified; R91.8 Other nonspecific abnormal finding of lung field; J98.11 Atelectasis; R05.9 Cough, unspecified; R06.09 Other forms of dyspnea
CPT/HCPCS: 99214

== ENCOUNTER → 2024-02-28 09:48 | Outpatient (BNVA) | payer MEDICARE, SELFPAY | PROVIDERS: PCP Student in an Organized Health Care Education/Training Program; Visit Provider Hospitalist | DX: J44.9 Chronic obstructive pulmonary disease, unspecified (principal); J45.41 Moderate persistent asthma with (acute) exacerbation; R06.00 Dyspnea, unspecified; R91.8 Other nonspecific abnormal finding of lung field; J98.11 Atelectasis; R06.09 Other forms of dyspnea; Z87.891 Personal history of nicotine dependence | CPT/HCPCS: 99212 ==

== ENCOUNTER 2024-07-11 10:48 | Outpatient (AMB) | payer MEDICARE, SELFPAY ==
--- NOTE | 2024-07-11 11:01 | A.OFFVIS_ITS ---
Vital Signs 07/11/24 11:02 Height 5 ft 4 in Weight 100 lb BMI 17.2 BP 110/60 Blood Pressure Location Lt brachial Position Sitting Pulse 77 Pulse Source Pulse Oximeter Pulse Oximetry (%) 95 Oxygen Delivery Method Room Air Intake Visit Reasons: Follow Up Intake Note: Patient presents follow up Tremor Shuttle Inspector Required: No Accompanied by: Self / Same As Patient Allergies Opiates Allergy (Intermediate, Uncoded 07/11/24 11:05) Itch and Hives Medication List - Last Reconciled 07/11/24 by SYEDA Pond acetaminophen (Tylenol) 325 mg PO QID PRN albuterol sulfate 2.5 mg (3 mL) inhalation Q6H PRN 30 days amlodipine 5 mg See Protocol PO DAILY aspirin 81 mg PO DAILY atorvastatin 40 mg PO BEDTIME budesonide-formoterol 160-4.5 mcg/actuation 2 puffs inhalation BID 30 days calcium carbonate (Calcium 500) 1,000 mg PO DAILY cholecalciferol (vitamin D3) 25 mcg PO DAILY folic acid 1 mg PO DAILY hydroxychloroquine 200 mg PO DAILY levothyroxine 50 mcg PO DAILY methotrexate sodium (PF) 12.5 mg subcut FR metoprolol succinate ER 25 mg PO DAILY nebulizers As directed primidone 25 mg (1/2 x 50 mg) PO BEDTIME 90 days HPI Comments Details: History of Present Illness The patient is an 84-year-old female presenting for neurological follow-up for tremor and focal dysphonia. However, she would also like to discuss interval history of stroke. Pt reports diagnosis of a left frontal and parietal lobe stroke in December, which was diagnosed at [facility] after patient presented with right hand heaviness and facial droop. 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 * Follow-up brain MRI without contrast reveals acute focal infarct in the left frontal centrum semiovale and punctuate acute infarct in the cortical juarez matter of the posterior left parietal lobe without mass effect or hemorrhagic transformation. * Echocardiogram showed normal EF of 65-70% with mild aortic regurgitation, normal RV systolic pressure. Lab workup was unremarkable, lipid panel was within normal limits. * As patient had mild symptoms and she was beyond 4 hours since last known well time, patient was managed with conservative medical management. She was started on aspirin therapy, and continued on her statin in home BP med regimen. * A failed swallow study was confirmed in the hospital, and she does continue to have some difficulty swallowing at this time, but she is not pursuing speech therapy. She manages swallowing difficulties with dietary modifications. * She did have post hospital subacute rehab therapy. Right arm function has improved, but she still experiences right leg weakness. Preferring low-risk exercises due to fatigue and injury concerns. she would like to try walking on the treadmill for exercise if able. * Per patient, her PCP has advised her to have a follow-up echocardiogram. She has not had a front desk monitor. She was previously seen by [facility] cardiology over a year ago, however would prefer not to follow-up with that is specific office. * She states that she did have endocrinology follow-up, and left thyroid lobe biopsy which was normal. 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 The patient Reports that her hand tremor essentially resolved once she moved out of her house into senior housing. She now only experiences mild tremor when nervous, controlled with primadone. Review of Systems - Neurological: Reports tremor when nervous; denies worsening of functional tremor. - Cardiovascular: Reports past leg swelling; denies recent evaluations. - Musculoskeletal: Reports right leg weakness; denies right arm weakness. - Endocrine: Has had recent consult with endocrinology for thyroid concerns. - Respiratory: chronic asthma and COPD - General: Reports fatigue during physical activities. Physical Exam - Neurological- Left eye brow rests lower than right- but symmetric upon eyebrow raise. visible upper extremity tremor today. Right leg with minimal muscle weakness noted. DTRs 2+ symmetric throughout. - Musculoskeletal- Right arm strength appears good; - Speech- hypophonia with chronic dysphonia. - Gait- stands easily today, steadily. Mental Status Exam - Appearance: Cooperative, well-groomed; appropriately attired. - Mood and Affect: Appropriates affect, cooperative during interaction. - Cognition: Oriented; memory intact for short and long-term recall. - Speech: Mild dysphonia noted; speech was understandable with effort. [facility] Medical History (Updated 07/11/24 @ 11:43 by SYEDA Pond) Stroke Pneumonia Chronic cough Bronchiolitis Pulmonary nodules Atelectasis Asthma-COPD overlap syndrome Surgical History Hx of neck surgery History of back surgery H/O: hysterectomy Hx of appendectomy Family History Father Heart disease Lung disease Dementia Son Epilepsy Social History Household Members: None Housing: House Housing Other:: independent living facility Do you presently have visiting nurse or other home services: No Alcohol intake: never Patient Tobacco Use Status: Former Tobacco user Tobacco use type: Cigarette Cigarette Packs Per Day: 1 Years Smoked: 4 Advance Directives Date on File: 01/01/24 service: No Physical Exam Vital Signs: Last Vital Signs Pulse 77 07/11/24 11:02 BP 110/60 07/11/24 11:02 Pulse Ox 95 07/11/24 11:02 Oxygen Delivery Method Room Air 07/11/24 11:02 BMI result Body Mass Index 17.2 Const General: cooperative and no acute distress Resp Effort & Inspection: normal respiratory effort and able to speak in complete sentences Neuro Other: General: A&O x's 3 Expression: Intact Voice: Hoarse, soft, dysphonia with less noticable tremor Tremor: No rest/postural tremor today. No visible head tremor. Tone: None Dyskinesia: None FFM: Slight decrease on left Foot taps: Slight decrease on left DTRs: 2+ throughout Muscle strangth- mild RLE weakness Gait: Stands easily, good stride-, steady gait Psych: Pleasant affect. Assessment & Plan Assessment & Plan (1) Stroke: Comment: 12/2023- Focal acute infarct in the left frontal centrum semiovale. Additional punctate acute infarct in the cortical juarez matter of the posterior left parietal lobe. Code(s): I63.9 - Cerebral infarction, unspecified Category: Medical (2) Essential tremor: Code(s): G25.0 - Essential tremor Category: Medical (3) Dysphonia, spasmodic: Code(s): J38.3 - Other diseases of vocal cords Category: Medical (4) Cognitive dysfunction: Code(s): F09 - Unspecified mental disorder due to known physiological condition Category: Medical Plan Discussion Notes I discussed with the patient the importance of ongoing cardiovascular and neurological assessments to manage post-stroke care effectively. We reviewed the need for an echocardiogram to evaluate cardiac function and the Holter monitor for possible arrhythmias. I explained the use of aspirin and medication for hypertension and hyperlipidemia, emphasizing prevention strategies. The need for cautious physical activities and safe swallowing modalities to manage dysphagia was highlighted. We also considered future referrals to speech therapy and/or [facility] or [facility] if necessary. We also addressed the continuation of primidone for tremor control. Patient consented to the outlined monitoring and management strategies, understanding the risks and benefits, and agreed to notify me if dysphagia worsens, indicating potential speech therapy. Plan For left frontal and parietal stroke: Continue aspirin, antihypertensives, and statins. Echocardiogram (? if MIKE or bubble study) as ordered by PCP. Will order seven-day Holter monitor. Future considerations include cardiology consult- patient would prefer at [facility] or [facility]. For tremor and vocal dysphonia: Continue primadone. Manage dysphagia conservatively with small, slow bites. Encourage safe exercise options. Follow up in six months or sooner if new symptoms occur. Patient was informed and verbally consented to the use of an ambient scribe for clinic note documentation during this visit. Patient Instructions For stroke with residual dysphasia and right leg weakness: - Take medications as prescribed, including aspirin and medications for blood pressure and cholesterol. - Complete the echocardiogram and Holter monitor testing as ordered. - Chew food slowly, taking small bites to manage swallowing issues. - Engage only in safe, low-risk exercises like using a recumbent bike. Avoid using treadmill, as this may increase risk for falls. - Notify me if swallowing difficulties worsen or if any new symptoms appear. For tremor and vocal dysphonia: - Continue Primidone 25mg qd. - Metoprolol may help w/ tremor- continue per cardiology. - For REM sleep behaviors- Monitor. Keep area around bed clear of clutter, notify us w/ any worsening sleep behaviors. - Continue strategies to break freezing/stcuk episodes- stepping inplace, tapping her thigh/hip. - Continue to engage in regular cognitive, social, and physically stimulating activities. - Future considerations: in-lab PSG- ? ARTEM/narcolepsy/hypersomnia, low dose CD- LD. - Plan to return for a follow-up visit in six months. Orders: Orders ECG 7 day holter monitor Today I63.9 - Cerebral infarction, unspecified Coding Level of Care Code Est Pt Level 4 (65897) Diagnoses Stroke I63.9 Essential tremor G25.0 Dysphonia, spasmodic J38.3 Cognitive dysfunction F09
[2024-07-11 11:02] VITALS: BP 110/60; PULSE 77; O2SAT 95; BMI 17.2
== END 2024-07-11 11:51 | disposition home or self-care (01) ==
LOC: HO.HSMS 10:48
PROVIDERS: PCP Internal Medicine Geriatric Medicine; Visit Provider Nurse Practitioner Family
DX: I69.391 Dysphagia following cerebral infarction (principal); I69.398 Other sequelae of cerebral infarction; G25.0 Essential tremor; J38.3 Other diseases of vocal cords
CPT/HCPCS: 99214

== ENCOUNTER → 2024-07-11 10:48 | Outpatient (BNVA) | payer MEDICARE, SELFPAY | PROVIDERS: PCP Internal Medicine Geriatric Medicine; Visit Provider Nurse Practitioner Family | DX: G25.0 Essential tremor (principal); J38.3 Other diseases of vocal cords; F09 Unspecified mental disorder due to known physiological condition; Z86.73 Personal history of transient ischemic attack (TIA), and cerebral infarction without residual deficits | CPT/HCPCS: 99212 ==

== ENCOUNTER → 2024-07-18 09:41 | Outpatient (REF) | payer MEDICARE, SELFPAY ==
--- OUTSIDE RECORDS SUMMARY | 2024-07-18 10:11 | XMS_ITS | Data Portability ---
Author Organization [facility], Main Office Address [address] [facility] [address] [place] [address] Care Team Providers Care Plate Keeper Name Role Phone LONNIE ARDON Bath Mix Operator PORFIRIO QUINTANILLA Residential Assistant MARY ANN LARA Child Advocate KENNA GRANADOS Marine Chronometer Assembler [phone] DEBRA JACKSNO Neurologist [facility] Neuropsychologist ALESSIA LAYTON Residential Assistant JHON PULIDO Primary Care Provider Assessment Encounter Date Assessment Date Assessment LastModified by Organization Details LastModified Time 01/15/2024 01/15/2024 Discussed with patient the signs/symptom s warranted for a return to office visit and/or an ER visit. Patient understood and agreed with the plan. [email or web address] Not available 01/14/2024 21:36:27 Plan of Treatment Reminders Order Date Submit Date Provider Last Modified By Organization Details Last Modified Time Details Appointments [id number] 2024 09:00A Jose PULIDO MD Not available Not available Not available Lab BNP (B-type natriuret ic peptide), serum or plasma 2024 025 AKI [facility] (Centralized Electronic Ordering - All Locations), Patient Can Go To The Location Of Their Choice, [id number] 05/01/2024 16:07:04 urinalysi s complete, reflex culture 2024 025 AKI [facility] (Centralized Electronic Ordering - All Locations), Patient Can Go To The Location Of Their Choice, [id number] 05/01/2024 16:07:03 TSH + free T4, serum 2024 025 AKI [facility] (Centralized Electronic Ordering - All Locations), Patient Can Go To The Location Of Their Choice, [id number] 05/01/2024 16:07:02 Referral None recorded. Procedures None recorded. Surgeries None recorded. Imaging US, echocardi ogram - pt noted to have 2+ pitting edema 2024 vinay[facility] (Outt Non-Invasive Cardiology Scheduling), [address] [place], [address], 06/11/2024 09:34:39 Medication Orders atorvasta tin 40 mg tablet 2024 025 [facility]/Pharmacy #2071, [address] [place], [address], 05/31/2024 11:07:31 atorvasta tin 40 mg tablet 2024 025 [facility]Pharmacy [facility]2071, [address] [facility] [place], [address], 04/30/2024 14:01:43 furosemid e 20 mg tablet [address]/Pharmacy #2071, [address] [facility] [place], [address], 05/24/2024 14:50:04 atorvasta tin 80 mg tablet [address]/Pharmacy #2071, [address] [facility], [place], [address], 04/30/2024 13:52:27 Patient TargetsNo targets recorded. Patient Instructions Encounter Date Encounter Id Patient Instructions Last Modified By Organization Details Last Modified Time 01/15/2024 [id number] At [facility] follow [facility] visit, all current and discharge medications (OTC, herbal therapies, supplements) reviewed and reconciled with patient and or caregiver, including potential side effects, drug interactions, instructions, and the consequences of not taking medication. Reviewed potential barriers to medication adherence, such as side effects from medication or cost of medication. [email or web address] Not available 01/15/2024 09:57:18 01/26/2024 [id number] stroke: care instructions Not available 01/26/2024 14:19:59 gastroesophageal reflux disease (GERD): care instructions Not available 01/26/2024 14:35:03 high blood pressure: care instructions Not available 01/26/2024 14:19:59 learning about h igh blood pressure Not available 01/26/2024 14:19:59 adjustment disorder: care instructions Not available 01/26/2024 14:19:59 At today's [facility] follow up visit, all current and discharge medications (OTC, herbal therapies, supplements) reviewed and reconciled with patient and or caregiver, including potential side effects, drug interactions, instructions, and the consequences of not taking medication. Reviewed potential barriers to medication adherence, such as side effects from medication or cost of medication. [email or web address] Not available 01/26/2024 13:57:43 04/30/2024 [id number] stroke: care instructions Not available 04/30/2024 14:01:40 gastroesophageal reflux disease (GERD): care instructions Not available 04/30/2024 14:01:40 leg and ankle edema: care instructions Not available 04/30/2024 14:05:22 frequent urinati on: care instructions Not available 04/30/2024 14:05:22 high blood pressure: care instructions Not available 04/30/2024 14:01:40 learning about h igh blood pressure Not available 04/30/2024 14:01:41 hypothyroidism: care instructions Not available 04/30/2024 14:01:40 Rheumatoid Arthritis (RA): Care Instructions Not available 04/30/2024 14:01:40 05/31/2024 [id number] leg and ankle edema: care instructions Not available 05/31/2024 11:07:28 high blood pressure: care instructions Not available 05/31/2024 11:07:29 learning about h igh blood pressure Not available 05/31/2024 11:07:28 Reason for Referral None Reported. Results Created Date Observation Date Name Description Value Unit Range Abnormal Flag Note LastModifiedBy Organization Detail LastModifiedTime 04/30/1905/01/2024 TSH+F REE T4 TSH 1.540 uIU/m L 0.450- 4.500 normal Not Available [facility] ([facility]) [address] [facility], [place], [address], 05/01/2024 16:07:02 04/30/1905/01/2024 TSH+F REE T4 T4,free(dire ct) 1.51 NG/dL 0.82-1 .77 normal Not Available [facility] ([facility]) [address] [facility], [place], [address], 05/01/2024 16:07:02 04/30/1905/01/2024 UA/M W/RFL X CULTU RE, ROUTI NE specific gravity 1.020 1.005- 1.030 normal Not Available [facility] ([facility]) [address] [facility], [place], [address], 05/01/2024 16:07:03 04/30/1905/01/2024 UA/M W/RFL X CULTU RE, ROUTI NE pH 5.5 5.0-7. 5 normal Not Available [facility] ([facility]) [address] [place], [address], 05/01/2024 16:07:03 04/30/1905/01/2024 UA/M W/RFL X CULTU RE, ROUTI NE urine-color Yellow yellow Not Available [facility] ([facility]) [address] [place], [address], 05/01/2024 16:07:03 04/30/1905/01/2024 UA/M W/RFL X CULTU RE, ROUTI NE appearance Clear clear Not Available [facility] ([facility]) [address] [facility], [place], [address], 05/01/2024 16:07:03 04/30/19 25 05/01/2024 UA/M W/RFL X CULTU RE, ROUTI NE WBC esterase Negati ve negati ve Not Available [facility] ([facility]) [address] [facility], [place], [address], 05/01/2024 16:07:03 04/30/19 25 05/01/2024 UA/M W/RFL X CULTU RE, ROUTI NE protein 1+ negati ve/tra ce abnormal Not Available [facility] ([facility]) [address] [facility], [place], [address], 05/01/2024 16:07:03 04/30/19 25 05/01/2024 UA/M W/RFL X CULTU RE, ROUTI NE glucose Negati ve negati ve Not Available [facility] ([facility]) [address] [facility], [place], [address], 05/01/2024 16:07:03 04/30/19 25 05/01/2024 UA/M W/RFL X CULTU RE, ROUTI NE ketones Negati ve negati ve Not Available [facility] ([facility]) [address] [facility], [place], [address], 05/01/2024 16:07:03 04/30/19 25 05/01/2024 UA/M W/RFL X CULTU RE, ROUTI NE occult blood Negati ve negati ve Not Available [facility] ([facility]) [address] [facility], [place], [address], 05/01/2024 16:07:03 04/30/19 25 05/01/2024 UA/M W/RFL X CULTU RE, ROUTI NE bilirubin Negati ve negati ve Not Available [facility] ([facility]) [address] [place], [address], 05/01/2024 16:07:03 04/30/19 25 05/01/2024 UA/M W/RFL X CULTU RE, ROUTI NE urobilinogen ,semi-qn 0.2 mg/dL 0.2-1. 0 normal Not Available [facility] ([facility]) [address] [facility], [place], [address], 05/01/2024 16:07:03 04/30/19 25 05/01/2024 UA/M W/RFL X CULTU RE, ROUTI NE nitrite, urine Negati ve negati ve Not Available [facility] ([facility]) [address] [facility], [place], [address], 05/01/2024 16:07:03 04/30/19 25 05/01/2024 UA/M W/RFL X CULTU RE, ROUTI NE microscopic examination See below: Micro scopi c was indic ated and was perfo rmed. Not Available [facility] ([facility]) [address] [facility], [place], [address], 05/01/2024 16:07:03 04/30/19 25 05/01/2024 UA/M W/RFL X CULTU RE, ROUTI NE WBC None seen /hpf 0 - 5 Not Available [facility] ([facility]) [address] [facility], [place], [address], 05/01/2024 16:07:03 04/30/19 25 05/01/2024 UA/M W/RFL X CULTU RE, ROUTI NE RBC None seen /hpf 0 - 2 Not Available [facility] ([facility]) [address] [facility], [place], [address], 05/01/2024 16:07:03 04/30/19 25 05/01/2024 UA/M W/RFL X CULTU RE, ROUTI NE epithelial cells (non renal) None seen /hpf 0 - 10 Not Available [facility] ([facility]) [address], [place], [address], 05/01/2024 16:07:03 04/30/19 25 05/01/2024 UA/M W/RFL X CULTU RE, ROUTI NE epithelial cells (renal) COVERING MACHINE TENDER Not Available [facility] ([facility]) [address], [place], [address], 05/01/2024 16:07:03 04/30/19 25 05/01/2024 UA/M W/RFL X CULTU RE, ROUTI NE casts None seen /lpf none seen Not Available [facility] ([facility]) [address], [place], [address], 05/01/2024 16:07:03 04/30/19 25 05/01/2024 UA/M W/RFL X CULTU RE, ROUTI NE cast type COVERING MACHINE TENDER Not Available [facility] ([facility]) [address] [facility], [place], [address], 05/01/2024 16:07:03 04/30/19 25 05/01/2024 UA/M W/RFL X CULTU RE, ROUTI NE crystals COVERING MACHINE TENDER Not Available [facility] ([facility]) [address] [facility], [place], [address], 05/01/2024 16:07:03 04/30/19 25 05/01/2024 UA/M W/RFL X CULTU RE, ROUTI NE crystal type COVERING MACHINE TENDER Not Available [facility] ([facility]) [address] [facility], [place], [address], 05/01/2024 16:07:03 04/30/19 25 05/01/2024 UA/M W/RFL X CULTU RE, ROUTI NE mucus threads COVERING MACHINE TENDER Not Available [facility] ([facility]) [address] [facility], [place], [address], 05/01/2024 16:07:03 04/30/19 25 05/01/2024 UA/M W/RFL X CULTU RE, ROUTI NE bacteria None seen none seen/f ew Not Available [facility] ([facility]) [address] [facility], [place], [address], 05/01/2024 16:07:03 04/30/19 25 05/01/2024 UA/M W/RFL X CULTU RE, ROUTI NE yeast COVERING MACHINE TENDER Not Available [facility] ([facility]) [address] [facility], [place], [address], 05/01/2024 16:07:03 04/30/19 25 05/01/2024 UA/M W/RFL X CULTU RE, ROUTI NE trichomonas COVERING MACHINE TENDER Not Available [facility] ([facility]) [address] [facility], [place], [address], 05/01/2024 16:07:03 04/30/19 25 05/01/2024 UA/M W/RFL X CULTU RE, ROUTI NE comment COVERING MACHINE TENDER Not Available [facility] ([facility]) [address] [facility], [place], [address], 05/01/2024 16:07:03 04/30/19 25 05/01/2024 UA/M W/RFL X CULTU RE, ROUTI NE microscopic examination COVERING MACHINE TENDER Not Available [facility]) [address] [facility], [place], [address], 05/01/2024 16:07:03 04/30/19 25 05/01/2024 UA/M W/RFL X CULTU RE, ROUTI NE urinalysis reflex Commen t This speci men will not refle x to a Urine Cultu re. Not Available [facility] ([facility]) [address] [facility], [place], [address], 05/01/2024 16:07:03 04/30/19 25 05/01/2024 B-TYP E NATRI URETI C PEPTI DE B-type natriuretic peptide 103.9 pg/mL 0.0-10 0.0 above high normal Sieme ns [facility] metho dolog y Not Available [facility] ([facility]) [address], [place], [address], 05/01/2024 16:07:04 12/30/19 24 12/30/2023 CT, head + brain , w/o contr ast No observ ation record ed. [address] (Medical Records) [address] [place], [address], 12/30/2023 08:17:06 12/30/1912/30/2023 CT, angio gram, head + neck, w/ contr ast No observ ation record ed. [address] (Medical Records) [address] [place], [address], 12/30/2023 13:15:20 12/30/19 24 12/30/2023 MRI, brain + brain stem, w/o contr ast No observ ation record ed. [address] (Medical Records) [address] [place], [address], 12/31/2023 11:58:30 03/10/20 24 12/30/2023 CT, brain , w/o contr ast No observ ation record ed. [address] (Medical Records) [address] [place], [address], 03/10/2024 13:36:20 06/04/19 25 06/04/2024 US, head + neck, soft tissu e US Soft Tissue Head/N saida Reason : Nontox ic goiter . COMPAR SUZIE: 09/22/19 13. FINDIN GS: RIGHT THYROI D LOBE: 3.7 x 1.0 x 1.0 cm, volume 1.9 cc. Mildly hetero geneou s echote xture. Normal parenc hymal vascul arity. Nodule #1: Lower pole, 1.0 x 0.4 x 0.7 cm, mixed cystic and solid, isoech oic, not taller -than- wide, ill-de fined margin , no echoge cisco foci. TI-RAD S Catego ry 2. LEFT THYROI D LOBE: 5.0 x 1.6 x 2.1 cm, volume 9.0 cc. Nodule findin gs detail ed below. Surrou nding thyroi d demons trates mildly hetero geneou s echote xture. Normal parenc hymal vascul arity. Nodule #1: Mid-to -lower pole, 3.0 x 1.7 x 1.9 cm, mixed cystic and solid, isoech oic, not taller -than- wide, smooth margin , macroc alcifi cation s. TI-RAD S Catego ry 3. Increa sed in size from 09/2012 (previ ously 2.3 x 1.7 x 1.8 cm). Nodule #2: Upper pole, 1.1 x 0.7 x 1.1 cm, mixed cystic and solid, isoech oic, not taller -than- wide, ill-de fined margin , no echoge cisco foci. TI-RAD S Catego ry 2. Not defini tively docume nted on the prior examin ation. ISTHMU S: Thickn ess: 0.2 cm. IMPRES AYLA: Domina nt 3.0 cm TI-RAD S Catego ry 3 nodule in the left lobe is increa sed in size from 09/2012 and meets criter ia for FNA if not alread y perfor med. Bilate ral TI-RAD S Catego ry 2 nodule s requir e no dedica leonardo mikey g follow -up. TI-RAD S 2017 refere nce: Elvin stevenson FN, Warren covarrubias WD, Yvon EG, et al. ACR Thyroi d Imagin g, Report ing and Data System (TI-RA DS): White Paper of the ACR TI-RAD S Commit carolee. J Am Krysta Radiol . Volume 14, Issue 5 , 587 595. https: //doi. org/10 .1016/ j.jacr .2017. 01.046 ACR TI-RAD S recomm endati ons: TR1 and TR2: No FNA or follow -up. TR3: FNA if greate r than 2.4 cm, follow -up if 1.5-2. 4 cm in 1, 3 and 5 years. TR4: FNA if greate r than 1.4 cm, follow -up if 1.0-1. 4 cm in 1, 2, 3 and 5 years. TR5: FNA if greate r than 0.9 cm, follow -up if 0.5-0. 9 cm every year for 5 years. TI-RAD S calcul ator: http:/ /eGood west valley medical centerFibroblast/ WSN: [id number] Orderi ng Physic nina: Jeffery Oneil ie Dictat ed By: Yovany Shukla MD Dictat ed Date/T bentley: 3:07 pm Review ed By: Yovany Shukla MD Signed By: Yovany Shukla MD Signed Date/T bentley: 3:07 pm Transc ribed By: CHERELLE Transc ribed Date/T bentley: 2:53 pm Patien t Class: Outpat ient [id number] [facility] (Outpt Imaging) [address] [place], [address], 06/07/2024 10:31:57 06/12/19 25 06/12/2024 fine needl e aspir ation No observ ation record ed. Not Available 06/12 14:46:48 Result Notes None recorded. Problems Name Problem SNOMED Code Status Onset Date Resolution Date Notes Provider Name and Address Organization Details Recorded Time Dysuria 08809833 Completed 03/30/2017 AAKASH Escobar, [facility] [place] 7 09:09:07 Generali zed abdomina l pain 007829107 Completed 201111/05/2013 IMPRESSI ON: RESOLVED AFTER CHOLECYS TECTOMY; RECORDED 01/11/20 12 11:08AM BY ANEESH ESCOBAR ON/GENO Agudelo PA-C [address] [facility] [address], [place], [address] , [facility] [place] 6 14:59:50 Abdomina l pain 97160318 Completed 201111/05/2013 RECORDED 01/11/20 12 11:08AM BY ANEESH ESCOBAR ON/ADDEN DUM Lance FREITASC [address], [place], [address] , [facility] 6 14:59:50 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 Completed 201211/05/2013 IMPRESSI ON: RIGHT THUMBNAI L, LOOKS LIKE FUNGUS PT WILL SEE DERM FOR EVAL AND TX; RECORDED 02/06/20 13 8:22AM BY ANEESH BETANCOURT ON/ADDEN DUM Lance FREITASC [address] [facility] [address], [place], [address] , [facility] 6 14:59:50 Arthropa thy 819844771 Completed 201307/14/2016 IMPRESSI ON: WE NEED TO MAKE APPT; RECORDED 07/19/19 14 8:25AM BY DEIRDRE CASEY, OFFICE VISIT Beatriz nixon, [facility] 7 10:14:57 Atrophic vulva 168712808 Completed 201307/14/2016 RECORDED 07/19/19 14 8:25AM BY DEIRDRE CASEY, OFFICE VISIT Beatriz nixon, [facility] 7 10:14:52 Screenin g for malignan t neoplasm of breast Completed 201111/05/2013 RECORDED 01/11/20 12 11:08AM BY ANEESH ESCOBAR ON/ADDEN DUM Lance Agudelo PA-C [address] [facility] [address], [place], [address] , [facility] 6 14:59:50 Bronchit is 70577694 Completed 201307/14/2016 IMPRESSI ON: PT IS IMMUNE SUPPRESS ED DUE TO MTX,W ILL HOLD DOSE TODAY, TX WITH ZPAK, WILL CHECK WITH RHEUMATO LOGY TO WHEN SHE CAN RESTART THE MTX.; RECORDED 07/19/19 14 8:25AM BY DEIRDRE CASEY, OFFICE VISIT AAKASH Escobar, [facility] 7 09:31:48 Cardiova scular system problem [id number] Completed 201211/05/2013 RECORDED 02/06/20 13 8:22AM BY ANEESH BETANCOURT ON/ADDEN DUM Lance Agudelo PA-C [address] [address], [place], [address] , [facility] 6 14:59:50 Cough 09292725 Completed 201111/05/2013 RECORDED 01/11/20 12 11:08AM BY ANEESH ESCOBAR ON/ADDEN DUM AAKASH Escobar, [facility] 6 14:21:06 Depressi ve disorder 71327366 Completed 201308/08/2018 [facility] 13:32:34 Dizzines s and giddines s 219553549 Completed 201211/05/2013 IMPRESSI ON: DUE TO POOR HYDRATIO N STATUS, NOT ON MEDS, POOR LIQUID INTAKE, POSITIVE ORTHOSTA TICS TODAY, PT TO DRINK MORE, ADD SALT CONTAINI NG LIQUIDS AND FOODS, 2 MOTNH FOLLOWUP ; RECORDED 02/06/20 13 8:22AM BY ANEESH BETANCOURT ON/ADDEN DUM Lance Agudelo PA-C [address] [facility] [address], [place], [address] , [facility] 6 14:59:50 Dysphagi a 85720275 Completed 201111/05/2013 RECORDED 01/11/20 12 11:08AM BY ANEESH ESCOBAR ON/ADDEN DUM Lance Agudelo PA-C [address] [facility] [address], [place], [address] , [facility] 6 14:59:50 Follow-u p encounte r Completed 201211/05/2013 RECORDED 02/06/20 13 8:22AM BY ANEESH BETANCOURT ON/ADDEN DUM Lance Agudelo PA-C [address] [address], [place], [address] , [facility] 6 14:59:50 Gastroes ophageal reflux disease 932456906 Active 2013 Awilda Guyrhonda nixon, [facility] 0 09:17:06 Gastroes ophageal reflux disease 670703731 Completed 201211/05/2013 RECORDED 02/06/20 13 8:22AM BY ANEESH BETANCOURT ON/ADDEN DUM AAKASH Cast, [facility] 9 08:55:25 Influenz a vaccine needed [id number] 06 Completed 200911/05/2013 DATE: 03/03/20 10; RECORDED 01/11/20 12 11:08AM BY ANEESH ESCOBAR ON/ADDEN DUM Lance HERNÁNDEZ-C [address] [address], [place], [address] , [facility] 6 14:59:50 Adult health examinat ion Completed 201211/05/2013 RECORDED 02/06/20 13 8:22AM BY ANEESH BETANCOURT ON/ADDEN DUM Lance HERNÁNDEZ-C [address] [address], [place], [address] , [facility] 6 14:59:50 Blood in urine 52456861 Completed 201111/05/2013 RECORDED 01/11/20 12 11:08AM BY ANEESH ESCOBAR ON/ADDEN DUM Lance HERNÁNDEZ-C [address] [address], [place], [address] , [facility] 6 14:59:50 Pure hypercho lesterol emia 576958587 Completed 201311/07/2016 RECORDED 07/19/19 14 8:25AM BY DEIRDRE CASEY, OFFICE VISIT Beatriz nixon, [facility] 7 09:42:41 Hypothyr oidism 55527556 Active 2013 Awilda nixon, [facility] 0 09:17:06 Hypothyr oidism 28486107 Completed 201211/05/2013 RECORDED 02/06/20 13 8:22AM BY ANEESH BETANCOURT ON/ADDEN DUM AAKASH Cast, [facility] 9 08:55:38 Irritabl e bowel syndrome 09862944 Active 2013 Awilda nixon, [facility] 0 09:17:06 Abnormal weight loss 992214125 Completed 201211/05/2013 RECORDED 02/06/20 13 8:22AM BY ANEESH BETANCOURT ON/ADDEN DUM Lance Agudelo PA-C [address] [facility] [address], [place], [address] , [facility] 6 14:59:50 Malaise and fatigue 902418194 Completed 201211/05/2013 IMPRESSI ON: RESTART CITALOPR AM TO [facility] WITH MOOD; RECORDED 02/06/20 13 8:22AM BY ANEESH BETANCOURT ON/ADDEN DUM Lance Agudelo PA-C [address] [facility] [address], [place], [address] , [facility] 6 14:59:50 Fibromyo sitis 21205306 Active 2013 Awilda nixon [facility] 0 09:17:06 Administ ration of viral vaccine Completed 201011/05/2013 DATE: 09/02/19 11; RECORDED 01/11/20 12 11:08AM BY ANEESH ESCOBAR ON/ADDEN DUM Lance Agudelo PA-C [address] [facility] [address], [place], [address] , [facility] 6 14:59:50 Administ ration of tetanus vaccine Completed 201111/05/2013 RECORDED 01/11/20 12 11:09AM BY ANEESH ESCOBAR ON/ADDEN FREDRICK Agudelo PA-C [address] [facility] [address], [place], [address] , [facility] 6 14:59:50 Patient status finding [id number] Completed 201303/16/2016 RECORDED 07/19/19 14 9:21AM BY BEATRIZ Castillo MD, OFFICE VISIT AAKASH Escobar, [facility] 6 14:20:49 Osteoart hritis 628739812 Completed 201211/05/2013 RECORDED 02/06/20 13 8:22AM BY ANEESH BETANCOURT ON/ADDEN FREDRICK Agudelo PA-C [address] [facility] [address], [place], [address] , [facility] 6 14:59:50 Tobacco user 404772912 Completed 201303/16/2016 quit age 20 AAKASH Escobar, [facility] 6 14:21:37 History of clinical finding in subject 597763857 Completed 201303/16/2016 RECORDED 07/19/19 14 8:25AM BY DEIRDRE CASEY, OFFICE VISIT Beatriz nixon [facility] 6 14:50:59 Hearing problem 303002976 Active 2013 Awilda nixon [facility] 0 09:17:06 Rheumato id arthriti s 60814932 Active 2013 Awilda nixon [facility] 0 09:17:06 Eruption 638260624 Completed 201211/05/2013 IMPRESSI ON: INSECT/S PIDER BITES; RECORDED 02/06/20 13 8:22AM BY ANEESH BETANCOURT ON/ADDEN DUM Lance FREITASC [address], [place], [address] , [facility] 6 14:59:50 Rheumato id robin hammer [id number] Completed 201311/05/2013 IMPRESSI ON: PT IS DOING BETTER, SHE IS RECENTLY OFF THE SALSALAT E AND IS ON MTX AND PLAQUENI L. RA IS BETTER. PT GETS LABS WITH DR ANDREWS AND SHE GETS EYE EXAM; RECORDED 07/19/19 14 12:27PM BY BEATRIZ Castillo MD, OFFICE VISIT AAKASH Cast, [facility] 9 08:55:44 Knee pain Completed 201211/05/2013 IMPRESSI ON: PT OT SEE RHEUMATO LOGY; RECORDED 02/06/20 13 8:22AM BY ANEESH BETANCOURT ON/ADDEN DUM Lance HERNÁNDEZ-C [address], [place], [address] , [facility] 6 14:59:50 Chronic sinusiti s 69671754 Completed 201311/05/2013 RECORDED 07/19/19 14 8:25AM BY ANEESH ESCOBAR ON/GENO FREITASC [address] [address], [place], [address] , [facility] 6 14:59:50 Screenin g for malignan t neoplasm of colon Completed 201111/05/2013 RECORDED 01/11/20 12 11:08AM BY ANEESH ECSOBAR ON/ADDSEUN FREITASC [address], [place], [address] , [facility] 6 14:59:50 Tremor [id number] Completed 201311/07/2016 IMPRESSI ON: STABLE; RECORDED 07/19/19 14 9:27AM BY BEATRIZ Castillo MD, OFFICE VISIT AAKASH Escobar, [facility] 7 09:03:15 Urge incontin ence of urine 38094170 Completed 201211/05/2013 RECORDED 02/06/20 13 8:22AM BY ANEESH BETANCOURT ON/ADDEN DUM Lance FREITASC [address], [place], [address] , [facility] 6 14:59:50 Urinary incontin ence 751676676 Active 2013 Awilda nixon, [facility] 0 09:17:06 Generali zed abdomina l pain 656944662 Completed 201111/25/2013 IMPRESSI ON: RESOLVED AFTER CHOLECYS TECTOMY; RECORDED 01/11/20 12 11:08AM BY ANEESH ESCOBAR ON/ADDEN DUM Lance FREITASC [address] [facility] [address], [place], [address] , [facility] 6 14:59:50 Abdomina l pain 35848443 Completed 201111/25/2013 RECORDED 01/11/20 12 11:08AM BY ANEESH ESCOBAR ON/GENO FREITASC [address] [facility] [address], [place], [address] , [facility] 6 14:59:50 Congenit al anomaly of nail 22674483 Completed 201211/25/2013 IMPRESSI ON: RIGHT THUMBNAI L, LOOKS LIKE FUNGUS PT WILL SEE DERM FOR EVAL AND TX; RECORDED 02/06/20 13 8:22AM BY ANEESH BETANCOURT ON/ADDEN DUM Lance FREITASC [address] [facility] [address], [place], [address] , [facility] 6 14:59:50 Screenin g for malignan t neoplasm of breast Completed 201111/25/2013 RECORDED 01/11/20 12 11:08AM BY ANEESH ESCOBAR ON/ADDEN DUM Lance FREITASC [address], [place], [address] , [facility] 6 14:59:50 Cardiova scular system problem [id number] Completed 201211/25/2013 RECORDED 02/06/20 13 8:22AM BY ANEESH BETANCOURT ON/ADDEN DUM Lance HERNÁNDEZ-C [address] [facility] [address], [place], [address] , [facility] 6 14:59:50 Cough [id number] Completed 201111/25/2013 RECORDED 01/11/20 12 11:08AM BY ANEESH ESCOBAR ON/ADDEN DUM Deirdre Casey MA [facility] 6 14:21:06 Dizzines s and giddines s [id number] Completed 201211/25/2013 IMPRESSI ON: DUE TO POOR HYDRATIO N STATUS, NOT ON MEDS, POOR LIQUID INTAKE, POSITIVE ORTHOSTA TICS TODAY, PT TO DRINK MORE, ADD SALT CONTAINI NG LIQUIDS AND FOODS, 2 MOT[facility] FOLLOWUP ; RECORDED 02/06/20 13 8:22AM BY ANEESH BETANCOURT ON/ADDEN DUM Lance FREITASC [address] [facility] [address], [place], [address] , [facility] 6 14:59:50 Dysphagi a [id number] Completed 201111/25/2013 RECORDED 01/11/20 12 11:08AM BY ANEESH ESCOBAR ON/ADDEN DUM Lance FREITASC [address] [facility] [address], [place], [address] , [facility] 6 14:59:50 Dysuria [id number] Completed 201111/25/2013 RECORDED 01/11/20 12 11:08AM BY ANEESH ESCOBAR ON/ADDEN DUM Deirdre Casey MA null, [facility] 7 09:09:07 Follow-u p encounte r Completed 201211/25/2013 RECORDED 02/06/20 13 8:22AM BY ANEESH BETANCOURT ON/ADDEN DUM Lance HERNÁNDEZ-C [address] [facility] [address], [place], [address] , [facility] 6 14:59:50 Influenz a vaccine needed [id number] Completed 200911/25/2013 DATE: 03/03/20 10; RECORDED 01/11/20 12 11:08AM BY ANEESH ESCOBAR ON/ADDEN DUM Lance HERNÁNDEZ-C [address] [address], [place], [address] , [facility] 6 14:59:50 Adult health examinat ion Completed 201211/25/2013 RECORDED 02/06/20 13 8:22AM BY ANEESH BETANCOURT ON/ADDEN DUM Lance Agudelo PA-C [address] [address], [place], [address] , [facility] 6 14:59:50 Blood in urine [id number] Completed 201111/25/2013 RECORDED 01/11/20 12 11:08AM BY ANEESH ESCOBAR ON/ADDEN DUM Lance HERNÁNDEZ-C [address] [facility] [address], [place], [address] , [facility] 6 14:59:50 Laborato ry procedur e performe d [id number] Completed 201303/16/2016 RECORDED 10/25/19 14 2:28PM BY YANN TANG, LAB REQ AAKASH Escobar, [facility] 6 14:20:57 Abnormal weight loss [id number] Completed 201211/25/2013 RECORDED 02/06/20 13 8:22AM BY ANEESH BETANCOURT ON/ADDEN DUM Lacne Agudelo PA-C [address] [facility] [address], [place], [address] , [facility] 6 14:59:50 Malaise and fatigue [id number] Completed 201211/25/2013 IMPRESSI ON: RESTART CITALOPR AM TO [facility] WITH MOOD; RECORDED 02/06/20 13 8:22AM BY ANEESH BETANCOURT ON/ADDEN DUM Lance Agudelo PA-C [address] [facility] [address], [place], [address] , [facility] 6 14:59:50 Administ ration of viral vaccine Completed 201011/25/2013 DATE: 09/02/19 11; RECORDED 01/11/20 12 11:08AM BY ANEESH ESCOBAR ON/ADDEN DUM Lance Agudelo PA-C [address] [facility] [address], [place], [address] , [facility] 6 14:59:50 Administ ration of tetanus vaccine Completed 201111/25/2013 RECORDED 01/11/20 12 11:09AM BY ANEESH ESCOBAR ON/ADDEN DUM Lance Agudelo PA-C [address] [address], [place], [address] , [facility] 6 14:59:50 Osteoart hritis [id number] Completed 201211/25/2013 RECORDED 02/06/20 13 8:22AM BY ANEESH BETANCOURT ON/ADDEN DUM Lance Agudelo PA-C [address] [facility] [address], [place], [address] , [facility] 6 14:59:50 Eruption [id number] Completed 201211/25/2013 IMPRESSI ON: INSECT/S PIDER BITES; RECORDED 02/06/20 13 8:22AM BY ANEESH BETANCOURT ON/ADDEN DUM Lance Stuartden PA-C [address], [place], [address] , [facility] 6 14:59:50 Knee pain Completed 201211/25/2013 IMPRESSI ON: PT OT SEE RHEUMATO LOGY; RECORDED 02/06/20 13 8:22AM BY JOCELYN BETANCOURTATI ON/ADDEN DUM Lance Agudelo PA-C [address], [place], [address] , [facility] 6 14:59:50 Chronic sinusiti s [id number] Completed 201311/25/2013 RECORDED 07/19/19 14 8:25AM BY ANEESH ESCOBAR ON/ADDEN DUM Lance Stuartden PA-C [address] [facility] [address], [place], [address] , [facility] 6 14:59:50 Screenin g for malignan t neoplasm of colon Completed 201111/25/2013 RECORDED 01/11/20 12 11:08AM BY ANEESH ESCOBAR ON/ADDEN DUM Lance Agudelo PA-C [address] [facility] [address], [place], [address] , [facility] 6 14:59:50 Urge incontin ence of urine [id number] Completed 201211/25/2013 RECORDED 02/06/20 13 8:22AM BY ANEESH BETANCOURT ON/ADDEN DUM Lance Agudelo PA-C [address] [facility] [address], [place], [address] , [facility] 6 14:59:50 Cough [id number] Completed 03/16/2016 AAKASH Escobar, [facility] 6 14:21:06 Voice tremor [id number] Active Awilda nixon, [facility] 0 09:17:06 Solitary nodule of lung 403452137 Active Awilda nixon [facility] 0 09:17:06 Computed tomograp hy result abnormal [id number] Completed 07/14/2016 Beatriz nixon [facility] 7 10:14:39 Urinary symptoms [id number] Completed 03/16/2016 AAKASH Escobar [facility] 6 14:21:25 Incontin ence [id number] Completed 03/30/2017 AAKASH Escobar [facility] 7 09:09:04 Upper respirat ory infectio n [id number] Completed 03/16/2016 AAKASH Escobar [facility] 6 14:21:16 Acute conjunct ivitis [id number] Completed 03/16/2016 AAKASH Escobar [facility] 6 14:21:13 Unexplai kaylynn weight loss [id number] Completed 11/02/2017 Beatriz RomanAndreia inxon [facility] 8 10:15:19 Standard chest X-ray abnormal [id number] Completed 07/14/2016 Beatriz nixon [facility] 7 10:14:42 Fibrosis of lung [id number] Completed 02/21/2020 Beatriz cuellaro hussain [facility] 0 10:45:09 Underwei ght [id number] Completed 201708/08/2018 Beatriz nixon [facility] 9 13:32:30 Advance care planning Active 2018 Awilda nixon [facility] 0 09:17:06 Intracra nial meningio [place] [id number] Active 2018 needs repeat 01/04 Awilda nixon [facility] 0 09:17:06 Mild memory disturba nce 271163022 Active 2018 Awilda Guy null, [facility] 0 09:17:06 Female [id number] Completed 12/06/2019 Beatriz Erickson robert null, [facility] 0 10:54:56 Exposure to SARS-CoV -2 Completed 12/06/2019 Removal Reason: Problem added by user estela ford from the COVID-19 watch flag Acacia mcclain MA null, [facility] 0 10:41:47 Acute exacerba tion of moderate persiste nt asthma Completed 201902/21/2020 Beatriz Erickson robert null, [facility] 0 10:36:13 Essentia l hyperten ayla 91230546 Active 2020 Deirdre Casey MA null, [facility] 1 10:52:44 Hyperten ayla monitori ng status 846002317 Active 2021 enrolled Dot Granados null, [facility] 2 13:59:05 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 [place], [address] , [facility] 4 07:30:24 Problem Notes None recorded. Procedures Surgical History Date Name Laterality Status Provider Name and Address Organization Details Recorded Time 02/15/20 22 Date of Last Colonoscopy completed Deirdre Casey MA [facility] 03/11/2022 11:10:43 02/15/20 22 Colonoscopy completed Karen Saldivar [facility] 02/14/2022 14:20:08 02/15/20 22 Endoscopic us exam esoph completed Karen Saldivar [facility] 02/23/2022 11:38:15 07/15/19 22 Most Recent Mammogram completed Oanh Anderson [facility] 07/20/2021 16:32:02 07/15/19 22 Mammogram screening completed Oanh Anderson [facility] 07/20/2021 16:31:52 02/21/20 20 Six-Item Cognitive Test completed Deirdre Casey MA [facility] 02/21/2020 10:27:00 09/27/19 20 Most Recent Bone Density completed Elmamyrna Anna [facility] 10/04/2019 08:58:27 09/27/19 20 Dxa bone density rufino vrt fx completed Elma Anna [facility] 10/04/2019 08:58:18 11/15/19 19 Mini-Cog Test completed Acacia bishop MA [facility] 11/14/2018 09:32:38 08/09/19 19 Mini-Cog Test completed Deirdre Casey MA [facility] 08/08/2018 13:23:53 03/30/20 17 Fall Risk Assessment completed Deirdre Casey MA [facility] 03/30/2017 09:16:53 03/30/20 17 Mini-Cog Test completed Deirdre Casey MA [facility] 03/30/2017 09:15:30 03/30/20 17 Advanced Care Planning completed Deirdre Casey MA [facility] 03/30/2017 09:09:52 03/16/20 16 Fall Risk Assessment completed Deirdre Casey MA [facility] 03/16/2016 14:26:38 03/16/20 16 Mini-Cog Test completed Deirdre Casey MA [facility] 03/16/2016 14:25:30 03/16/20 16 Advanced Care Planning completed Beatriz cervantes [facility] 03/16/2016 14:51:24 02/13/20 15 Fall Risk Assessment completed Deirdre Casey MA [facility] 02/12/2015 09:22:30 02/13/20 15 Mini-Cog Test completed Deirdre Casey MA [facility] 02/12/2015 09:23:25 02/08/20 14 Fall Risk Assessment completed Nitesh Shaw [facility] 02/07/2014 09:32:11 02/08/20 14 Mini-Cog Test completed Nitesh Shaw [facility] 02/07/2014 09:32:11 04/17/19 04 Back Surgery completed Deirdre Casey MA [facility] 03/04/2021 13:02:58 04/09/19 89 Appendectomy completed Deirdre Casey MA [facility] 03/04/2021 13:02:58 04/17/18 46 Adenoidectomy completed Deirdre Casey MA [facility] 03/04/2021 13:02:58 Partial hysterectomy completed Acacia bishop MA [facility] 04/20/2018 08:57:06 primary fusion of cervical spine completed Acacia bishop MA [facility] 11/14/2018 09:22:01 Tonsillectomy completed Briana العراقي, [address] [address], [place], [address], [facility] 01/03/2014 09:42:06 Appendectomy completed Deirdre Casey MA [facility] 03/04/2021 13:02:58 Cholecystectomy completed Deirdre Casey MA [facility] 03/04/2021 13:02:58 Orthopedic Surgery completed Deirdre Casey MA [facility] 03/04/2021 13:02:58 Hysterectomy completed Deirdre Casey MA [facility] 03/04/2021 13:02:58 Adenoidectomy completed Deirdre Casey MA [facility] 03/04/2021 13:02:58 Imaging Results Imaging Date Name Status [facility] Details LastModified Time 12/30/2023 CT, head + brain, w/o contrast completed [address] (Medical Records) [address] [place], [address], 12/30/2023 08:17:06 12/30/2023 CT, angiogram, head + neck, w/ contrast completed [address] (Medical Records) [address] [place], [address], 12/30/2023 13:15:20 12/30/2023 MRI, brain + brain stem, w/o contrast completed [address] (Medical Records) [address] [place], [address], 12/31/2023 11:58:30 12/30/2023 CT, brain, w/o contrast completed [address] (Medical Records) [address] [place], [address], 03/10/2024 13:36:20 06/04/2024 US, head + neck, soft tissue completed [address] (Outpt Imaging) [address] [facility] [place], [address], 06/07/2024 10:31:57 06/12/2024 fine needle aspiration completed Information not available 06/12/2024 14:46:48 Procedure Notes None recorded. Medical Equipment None Reported. Allergies Allergen ID Allergen Name Allergen Category Reaction Reaction Severity Criticality Documentation Date Start Date Code Code System Note Provider Name and Address Organization Details Recorded Time 26734 latex environme nt,medica tion Not available Not available Not available 10/29/20132013 55510 91 RxNorm Lianne Bigby AAKASH nixon [facility] 7 10:44:48 76371 mold extract environme nt Not available Not available Not available 04/20/2018 00096 8 RxNorm Acacia Katty-M attosAAKASH [facility] 9 09:02:09 00534 oxycodone medicatio n vomiting Not available Not available 08/14/2019 7804 RxNorm Awilda Brooks nixon [facility] 0 09:17:09 Medications Name Sig Start Date Stop Date Status Note LastModified by Organization Details LastModified Time Prescript ion - Prior Authoriza tion Request 12/08 completed Not Available Not Available Not Available amoxicill in 500 mg capsule TAKE 1 CAPSULE BY MOUTH 3 TIMES A DAY 08/21 completed Not Available Not Available Not Available atorvasta tin 40 mg tablet TAKE 1 TABLET BY MOUTH EVERY DAY DIRECTED FOR 180 DAYS active Not Available Not Available No t Available desonide 0.05 % topical cream Apply 1 applicat ion twice a day by topical route as directed for 30 days. 02/22 completed Not Available Not Available Not Available primidone 50 mg tablet TAKE 1/2 TABELT (25 MG) ORALLY BEDTIME FOR 90 DAYS MAY TAKE EXTRA 1/2 TAB PER DAY NEEDED TREMOR active Not Available Not Available No t Available atorvasta tin 80 mg tablet Take 1 tablet every day by oral route for 90 days. 04/30 completed Not Available Not Available Not Available acetamino phen 325 mg tablet TAKE 2 TABS BY MOUTH EVERY 4 HOURS FOR 30 DAYS NEEDED FOR MILD PAIN active Not Available Not Available No t Available prednison e 10 mg tablet Take 3 tablets by mouth daily for 3 days, then 2 tablets by mouth daily for 3 days, then 1 tablet by mouth daily for 3 days, then 1/2 tablet by mouth daily for 4 days. 02/20 completed Not Available Not Available Not Available doxycycli ne hyclate 100 mg capsule TAKE 1 CAPSULE BY MOUTH TWICE A DAY 08/21 completed Not Available Not Available Not Available Saline Mist 0.65 % nasal spray aerosol Take 1 spray every day by nasal route in the morning for 30 days. 12/25 completed Not Available Not Available Not Available albuterol sulfate 2.5 mg/3 mL (0.083 %) solution for nebulizat ion Inhale 3 mL 3 times a day by nebuliza tion route as directed . 2023 active Not Available Not Available Not Avai lable azithromy robert 250 mg tablet TAKE 2 TABLETS BY MOUTH TODAY, THEN TAKE 1 TABLET DAILY FOR 4 DAYS DIRECTED 08/21 completed Not Available Not Available Not Available ofloxacin 0.3 % eye drops Instill 1 drop every day by ophthalm ic route as directed for 30 days. 02/22 completed Not Available Not Available Not Available benzonata te 200 mg capsule TAKE 1 CAPSULE BY MOUTH THREE TIMES A DAY FOR 5 DAYS 08/21 completed Not Available Not Available Not Available citalopra m 10 mg tablet DAILY 04/24 completed RECORDED 04/24/19 14 10:51AM BY DEIRDRE CASEY, OFFICE VISIT; Not Available Not Available Not Available tolterodi ne ER 4 mg capsule,e xtended release 24 hr QD 01/10 completed RECORDED 01/11/20 12 11:14AM BY DEIRDRE CASEY, OFFICE VISIT; Not Available Not Available Not Available fluticaso ne propionat e 0.05 % topical cream apply thin layer to skin 02/22 completed Not Available Not Available Not Available Erlin-Gest Antacid 200 mg (as calcium carbonate 500 mg) chewable tablet 2 TABLET CHEW 2 TIMES A DAY,X30 DAYS NEEDED FOR DYSPEPSI A active Not Available Not Available No t Available ondansetr on HCl 4 mg tablet 1-2 tablets twice a day 01/26 completed Not Available Not Available Not Available prednison e 20 mg tablet TAKE 2 TABLETS BY MOUTH TWICE A DAY 08/21 completed Not Available Not Available Not Available alendrona te 70 mg tablet 11/02 completed Not Available Not Available Not Available fluoroura cil 5 % topical cream 02/22 completed Not Available Not Available Not Available prednison e 5 mg tablet PLEASE SEE ATTACHED FOR DETAILED DIRECTIO NS 03/11 completed Not Available Not Available Not Available clobetaso l 0.05 % topical cream apply thin layer as needed 11/07 completed Not Available Not Available Not Available clotrimaz ole 1 % vaginal cream Apply 2x/day 2014 active Not Available Not Available Not Avai lable acetamino phen 300 mg-codein e 30 mg tablet 08/12 completed Not Available Not Available Not Available ciproflox acin 250 mg tablet Take 1 tablet every 12 hours by oral route for 3 days. 11/08 completed Not Available Not Available Not Available leucovori n calcium 10 mg tablet q weekly post methotre xate injectio n active Not Available Not Available No t Available amlodipin e 5 mg tablet TAKE 1 TABLET BY MOUTH EVERY DAY DIRECTED FOR 90 DAYS, FOR HOLD IF SYSTOLIC IS [id number] . 05/31 completed Not Available Not Available Not Available methotrex ate sodium 25 mg/mL injection solution INJECT 0.5ML SUBCUTAN EOUSLY ONCE WEEKLY. SINGLE DOSE VIAL, DISCARD REMAINDE R OF VIAL 09/17 completed Not Available Not Available Not Available aspirin 81 mg tablet,de layed release TAKE 1 TABLET BY MOUTH EVERY DAY active Not Available Not Available No t Available tramadol 50 mg tablet TAKE 1 TABLET BY MOUTH EVERY 6 HOURS NEEDED FOR PAIN 08/21 completed Not Available Not Available Not Available triamcino lone acetonide 0.1 % topical cream APPLY SPARINGL Y TO ITCHY RASH TWICE DAILY NEEDED FOR UP TO 2 WEEKS. active Not Available Not Available No t Available TobraDex 0.3 %-0.1 % eye ointment 10/03 completed Not Available Not Available Not Available Bentyl 20 mg tablet TID BEFORE MEALS PRN CRAMPING 01/10 completed RECORDED 01/11/20 12 11:13AM BY DEIRDRE CASEY, OFFICE VISIT; Not Available Not Available Not Available ketorolac 0.5 % eye drops Instill 1 drop every day by ophthalm ic route as directed for 30 days. 02/22 completed Not Available Not Available Not Available cyprohept adine 4 mg tablet Take 1 tablet 3 times a day by oral route for 30 days. 01/26 completed Not Available Not Available Not Available BD Tuberculi n Syringe 1 mL 27 x 1/2 USE ONE SYRINGE ONCE WEEKLY TO ADMINIST ER METHOTRE XATE DIRECTED active Not Available Not Available No t Available amoxicill in 875 mg tablet active Not Available Not Available Not Available prednisol one acetate 1 % eye drops,bert pension Instill 1 drop every day by ophthalm ic route as directed for 30 days. 02/22 completed Not Available Not Available Not Available triamcino lone acetonide 0.025 % topical cream Apply 1 applicat ion every day by topical route for 28 days. 03/11 completed Not Available Not Available Not Available methotrex ate sodium 2.5 mg tablet EVERY MONDAY active Not Available Not Available No t Available ciproflox acin 0.3 % eye drops INSTILL 1 DROP INTO AFFECTED EYE(S) BY OPHTHALM IC ROUTE EVERY 2 HOURSWHI LE AWAKE FOR 2 DAYS THEN 1 DROP EVERY 4 HRS WHILE AWAKE FOR 5 DAYS active Not Available Not Available No t Available levothyro xine 50 mcg tablet TAKE 1 TABLET BY MOUTH EVERY DAY active Not Available Not Available No t Available pantopraz ole 40 mg tablet,de layed release TAKE 1 TABLET (40 MG) BY MOUTH 2 TIMES A DAY,X30 DAYS 01/25 completed Not Available Not Available Not Available clotrimaz ole-betam ethasone 1 %-0.05 % topical cream APPLY TO AFFECTED & SURROUND ING AREAS TWICE A DAY FOR 2 WEEKS IN THE MORNING AND EVENING 01/25 completed Not Available Not Available Not Available Synthroid 75 mcg tablet TAKE 1 TABLET BY MOUTH EVERY DAY active Not Available Not Available No t Available sertralin e 25 mg tablet DAILY 04/30 completed RECORDED 04/30/19 11 8:09AM BY DEIRDRE CASEY, OFFICE VISIT; Not Available Not Available Not Available omeprazol e 20 mg capsule,d elayed release TAKE 1 CAPSULE BY MOUTH EVERY DAY 03/14 completed Not Available Not Available Not Available aspirin 81 mg chewable tablet Chew 1 tablet every day by oral route as directed . 01/14 completed Not Available Not Available Not Available folic acid 1 mg tablet TAKE 1 TABLET BY MOUTH EVERY DAY active Not Available Not Available No t Available lisinopri l 5 mg tablet TAKE 1 TABLET EVERY DAY BY ORAL ROUTE FOR 30 DAYS. 09/30 completed Not Available Not Available Not Available mupirocin 2 % topical ointment APPLY TO WOUND ON FOOT ONCE DAILY UNTIL HEALED. 09/17 completed Not Available Not Available Not Available furosemid e 20 mg tablet TAKE 1 TABLET BY MOUTH EVERY DAY FOR 30 DAYS active Not Available Not Available No t Available metoprolo l succinate ER 25 mg tablet,ex tended release 24 hr TAKE 1 TABLET BY MOUTH EVERY DAY 2024 active Not Available Not Available Not Avai lable hydroxych loroquine 200 mg tablet TAKE 1 TABLET BY MOUTH EVERY DAY active 05/31/24 Takes 1 tablet QOD Not Available Not Available Not Available levofloxa robert 750 mg tablet TAKE 1 TABLET BY MOUTH EVERY DAY DIRECTED FOR 5 DAYS 12/05 completed Not Available Not Available Not Available methylpre dnisolone 4 mg tablets in a dose pack TAKE 6 TABLETS ON DAY 1 DIRECTED ON PACKAGE AND DECREASE BY 1 TAB EACH DAY FOR A TOTAL OF 6 DAYS 08/21 completed Not Available Not Available Not Available albuterol sulfate HFA 90 mcg/actua tion aerosol inhaler TAKE 2 PUFFS BY MOUTH EVERY 4 HOURS NEEDED 08/12 completed Not Available Not Available Not Available ipratropi um bromide 42 mcg (0.06 %) nasal spray [place] 1 spray every day by nasal route. 07/08 completed uses rarely Not Available Not Available Not Available fluticaso ne propionat e 50 mcg/actua tion nasal spray,bert pension USE 2 SPRAYS IN EACH NOSTRIL EVERY DAY AT BEDTIME 01/14 completed Not Available Not Available Not Available sertralin e 50 mg tablet DAILY 01/06 completed RECORDED 01/07/20 11 8:57AM BY BEATRIZ Castillo MD, ANNOTATI ON/GENO ALCALA; Not Available Not Available Not Available doxycycli ne hyclate 100 mg tablet TAKE 1 TABLET BY MOUTH TWICE A DAY FOR 10 DAYS 12/25 completed Not Available Not Available Not Available amoxicill in 875 mg-potass ium clavulana te 125 mg tablet TWO TIMES DAILY 02/15 completed RECORDED 04/24/19 14 10:43AM BY MERLE MCMULLEN PA-C, MEDICATI ON AUTO-DEMARCO CTIVATIO N; Not Available Not Available Not Available VanishPoi nt Syringe 3 mL 25 x 5/8 USE 1 SYRINGE WEEKLY FOR METHOTRE XATE INJECTIO N 09/01 completed Not Available Not Available Not Available Mucinex 600 mg tablet, extended release Take 1 tablet every 12 hours by oral route as needed for 10 days. 03/16 completed Not Available Not Available Not Available azithromy robert 500 mg tablet TAKE 1 TABLET BY MOUTH EVERY DAY FOR 5 DAYS 09/01 completed Not Available Not Available Not Available codeine-g uaifenesi n oral syrup Q 4 HOURS PRN 07/31 completed RECORDED 01/04/20 08 3:59PM BY PEDRO SOUZA MD, MEDICATI ON AUTO-DEMARCO CTIVATIO N; Not Available Not Available Not Available methotrex ate sodium (PF) 25 mg/mL injection solution INJECT SUBCUTAN EOUSLY 0.5ML ONCE A WEEK. SINGLE DOSE VIAL. DISCARD REMAINDE R OF VIAL. active Not Available Not Available No t Available Mucinex DM 30 mg-600 mg tablet,ex tended release 12 hr Take 1 tablet every 12 hours by oral route for 7 days. 01/25 completed Not Available Not Available Not Available Vesicare 5 mg tablet Take 1 tablet every day by oral route for 30 days. 02/22 completed Not Available Not Available Not Available Flovent HFA 110 mcg/actua tion aerosol inhaler Inhale 1 puff every day by inhalati on route for 30 days. 08/12 completed Not Available Not Available Not Available chlorhexi dine gluconate 0.12 % mouthwash 08/12 completed Not Available Not Available Not Available acetamino phen 650 mg by mouth every 4 hours as needed 01/14 completed Not Available Not Available Not Available enoxapari n 40mg/0.4 ml injectab le solution , subcutan eous injectio n daily 01/14 completed Not Available Not Available Not Available omeprazol e 20 mg , take 1 cap by mouth daily 01/14 completed Not Available Not Available Not Available Tums 500 2 tablets 2 times a day as needed 2023 active Not Available Not Available Not Avai lable Adult Low Dose Aspirin QD 01/17 completed RECORDED 01/18/20 13 9:04AM BY DEIRDRE CASEY, OFFICE VISIT; Not Available Not Available Not Available nebulizer and compresso r use as directed 2023 active Not Available Not Available Not Avai lable Zostavax (PF) 19,400 unit/0.65 mL subcutane ous suspensio n ELIZABETH X 1 09/02 completed RECORDED 09/21/19 11 1:29PM BY EBATRIZ Castillo MD, MEDICATI ON AUTO-DEMARCO CTIVATIO N; Not Available Not Available Not Available fluocinol one acetonide oil 0.01 % ear drops 03/16 completed Not Available Not Available Not Available cholecalc iferol (vitamin D3) 25 mcg (1,000 unit) tablet TAKE 1 TABLET BY MOUTH EVERY DAY active Not Available Not Available No t Available budesonid e-formote rol HFA 160 mcg-4.5 mcg/actua tion aerosol inhaler INHALE 2 PUFFS 2 TIMES A DAY FOR 30 DAYS active Not Available Not Available No t Available GaviLyte- G 236 gram-22.7 4 gram-6.74 gram-5.86 gram oral solution TAKE DIRECTED TAKE 8 OUNCES EVERY 15 MINS DIRECTED BY THE OFFICE INSTRUCT IONS 03/11 completed Not Available Not Available Not Available Zyrtec 10 mg capsule Take 1 capsule by oral route. 09/09 completed Not Available Not Available Not Available Keyi nt Syringe 1 mL 25 gauge x 1 USE 1 SYRINGE WEEKLY FOR METHOTRE XATE INJECTIO N active Not Available Not Available No t Available mirabegro n ER 25 mg tablet,ex tended release 24 hr Take 25 mg by oral route. 08/12 completed Not Available Not Available Not Available Breo Ellipta 100 mcg-25 mcg/dose powder for inhalatio n 01/14 completed Not Available Not Available Not Available Restasis MultiDose 0.05 % eye drops 09/13 completed Not Available Not Available Not Available baclofen 5 mg tablet TAKE 1 TO 2 TABLETS BY MOUTH AT BEDTIME NEEDED FOR NECK PAIN/TIG HTNESS 09/30 completed Not Available Not Available Not Available Vitals Date Recorded Body height Body mass index (BMI) Body weight Oxygen saturation Oxygen saturation in Arterial blood by Pulse oximetry Heart rate Body temperature Systolic blood pressure Diastolic blood pressure Provider Name and Address Organization Details Last Updated DateTime 4 163.83 cm 16.1 kg/m2 19974.3 8 g 98 % 98 % 66 /min 97.8 [degF] 168 mm[Hg] 67 mm[Hg] Deirdre Casey MA [facility] 4 10:08:44 Date Recorded Systolic blood pressure Diastolic blood pressure Provider Name and Address Organization Details Last Updated DateTime 01/15/2024 150 mm[Hg] 70 mm[Hg] EDGAR HEBERT [address] [facility] [address], [address], [facility] 01/15/2024 12:28:27 Date Recorded Body height Body mass index (BMI) Body weight Body temperature Heart rate Oxygen saturation Oxygen saturation in Arterial blood by Pulse oximetry Systolic blood pressure Diastolic blood pressure Provider Name and Address Organization Details Last Updated DateTime 4 163.83 cm 16.3 kg/m2 80469.0 2 g 97.3 [degF] 69 /min 95 % 95 % 110 mm[Hg] 58 mm[Hg] Merle Ayoub [facility] 4 14:08:44 Date Recorded Body height Body mass index (BMI) Body weight Oxygen saturation Oxygen saturation in Arterial blood by Pulse oximetry Heart rate Body temperature Systolic blood pressure Diastolic blood pressure Provider Name and Address Organization Details Last Updated DateTime 5 163.83 cm 17.5 kg/m2 54150.1 1 g 98 % 98 % 79 /min 97.5 [degF] 132 mm[Hg] 65 mm[Hg] Deirdre Casey MA [facility] 5 13:42:52 Date Recorded Body height Body mass index (BMI) Body weight Heart rate Oxygen saturation Oxygen saturation in Arterial blood by Pulse oximetry Body temperature Systolic blood pressure Diastolic blood pressure Provider Name and Address Organization Details Last Updated DateTime 5 163.83 cm 16.8 kg/m2 01043.4 4 g 70 /min 96 % 96 % 97.5 [degF] 133 mm[Hg] 58 mm[Hg] Merle Ayoub MA [facility] [place] 5 10:50:16 Date Recorded Systolic blood pressure Diastolic blood pressure Provider Name and Address Organization Details Last Updated DateTime 05/31/2024 128 mm[Hg] 74 mm[Hg] JHON PULIDO MD [address] [facility] [address], [place], [address], [facility] [place] 05/31/2024 11:06:58 Social History Question Answer Notes LastModified by Organizat ion Details LastModified Time Tobacco Smoking Status Former Smoker Acacia Rush MA null, [facility] [place] 04/20/2018 09:05:09 Do You Have An Advance Directive? Yes HCP [email or web address] Information not available 03/04/2021 What Is Your Level Of Alcohol Consumption? None Information not available 02/07/2014 Is Blood Transfusion Acceptable In An Emergency? Yes [email or web address] Information not available 03/04/2021 What Is Your Level Of Caffeine Consumption? None Information not available 02/07/2014 How Much Tobacco Do You Chew? None Information not available 04/20/2018 In The 14 Days Before Symptom Onset, Have You Had Close Contact With A Laboratory-confi rmed COVID-19 While That Case Was Ill? No [email or web address] Information not available 03/04/2021 In The 14 Days Before Symptom Onset, Have You Had Close Contact With A Person Who Is Under Investigation For COVID-19 While That Person Was Ill? No [email or web address] Information not available 03/04/2021 Have You Been To An Area Known To Be High Risk For COVID-19? No [email or web address] Information not available 03/04/2021 Are You Currently Employed? No Retired Information not available 11/14/2018 Are You Deaf Or Do You Have Serious Difficulty Hearing? No [email or web address] Information not available 03/04/2021 What Type Of Diet Are You Following? REGULAR Information not available 04/20/2018 Which Illicit Or Recreational Drugs Have You Used? None Information not available 04/20/2018 Do You Or Have You Ever Used E-cigarettes Or Vape? 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 16+yearssince lastcigarette [email or web address] Information not available 03/04/2021 Live Alone Or With Others? Alone [email or web address] Information not available 03/04/2021 Do You Take Precautions To Prevent Distracted Driving? Yes [email or web address] Information not available 03/04/2021 How Often Do You Need To Have Someone Help You When You Read Instructions, Pamphlets, Or Other Written Material From Your Doctor Or Pharmacy? Sometimes Information not available 03/04/2021 Have You Served In The ? No Information not available 04/20/2018 Have You Or Anyone In Your Household Had Any Of The Following Symptoms In The Last 14 Days: Sore Throat, Cough, Chills, Body Aches For Unknown Reasons, Shortness Of Breath For Unknown Reasons, Loss Of Smell, Loss Of Taste, Fever At Or Greater Than 100 Degrees Fahrenheit? No [email or web address] Information not available 02/21/2020 Are You Or Anyone In Your Household A Health Care Provider Or Emergency Responder? No TeleCommunication Systems Information not available 11/25/2019 To The Best Of Your Knowledge Have You Been In Close Proximity To Any Individual Who Tested Positive For COVID-19? No TeleCommunication Systems Information not available 11/25/2019 *AWV ONLY* Are You Presently Prescribed Opioid Medication By PCP Or Specialist? If YES -Provider Assess The Benefit For Other, Non-opioid Pain Therapies Instead, Even If The Patient Does Not Have OUD But Is Possibly At Risk. No Information not available 12/06/2019 Have You Recently Traveled To A COVID-19 High Risk Area Or Gathering In The Last 10 Days? No [email or web address] Information not available 06/26/2020 Marital Status [email or web address] Informatio n not available 03/04/2021 What Was The Date Of Your Most Recent Tobacco Screening? 03/11/2022 [email or web address] Information not available 03/11/2022 Total Number Of Stairs In Home 12 [email or web address] Information not available 03/04/2021 How Many Children Do You Have? 3 [place], And [place]ag Information not available 04/20/2018 What Is Your Current Pack Years? 10packyears [email or web address] Information not available 03/04/2021 Difficulty Reading? No [email or web address] Information not available 03/04/2021 Do You Use Your Seat Belt Or Car Seat Routinely? Yes [email or web address] Information not available 03/04/2021 Seat Belts Used Routinely Yes Information not available 03/04/2021 Are You Sexually Active? No [email or web address] Information not available 03/04/2021 Do You Have Smoke And Carbon Monoxide Detectors In Your Home? Yes [email or web address] Information not available 03/04/2021 At What Age Did You Start Smoking Tobacco? 18 Quit At 21 Information not available 04/20/2018 Are You Passively Exposed To Smoke? No Information not available 04/20/2018 Do You Or Have You Ever Used Smokeless Tobacco? Never Used Smokeless Tobacco Information not available 11/14/2018 How Much Tobacco Do You Smoke? No Information not available 03/04/2021 Do You Use Sunscreen Routinely? Yes [email or web address] Information not available 03/04/2021 How Many Years Have You Smoked Tobacco? 4 Information not available 04/20/2018 Difficulty Watching TV? No Information not available 03/04/2021 Do You Or Have You Ever Used Any Other Forms Of Tobacco Or Nicotine? No [email or web address] Information not available 03/04/2021 Sex: Unknown Functional Status Question Answer Note LastModified by Organizat ion Details LastModified Time Do you have difficulty walking or climbing stairs? No [email or web address] Information not available 03/04/2021 Difficulty driving at night? Yes [email or web address] Information not available 03/04/2021 Are you able to walk? YESWOREST [email or web address] Information not available 03/04/2021 Do you have difficulty doing errands alone? No [email or web address] Information not available 03/04/2021 Are you able to care for yourself? No [email or web address] Information not available 03/04/2021 Do you have difficulty dressing or bathing? No [email or web address] Information not available 03/04/2021 What is your exercise level? Occasional walking, [email or web address] Information not available 03/11/2022 Mental Status Question Answer Note LastModified by Organization D etails LastModified Time Do you have difficulty concentrating, remembering or making decisions? Yes [email or web address] Information no t available 03/04/2021 Family History Relationship Description Onset Age of this Age Resolved Age Notes LastModified by Organization Details LastModified Time Mother Cataract [email or web address] Not availab le 03/04/2021 13:02:40 Mother Hyperlipidem ia Not available 03/04 13:02:40 Mother Dementia [email or web address] Not availab le 02/07/2014 09:32:11 Father Myocardial infarction [email or web address] Not available 02/15 13:02:40 Father Diabetes mellitus [email or web address] Not available 02/07 09:32:11 Father Dementia [email or web address] Not availab le 02/07/2014 09:32:11 Father Asthma [email or web address] Not available 03/04/2021 13:02:40 Sister Hypertensive disorder [email or web address] Not available 02/07 09:32:11 Unspecified Relation Arthritis [email or web address] Not available 02/15 13:02:40 Medical History Condition Response Eating Disorder Y Bladder Problems Y Arthritis Y Thyroid Problems Y Osteoporosis Y Gynecological History Statement/Question Response Date of Last Pap Smear Date of Last Colonoscopy 02/14/2022 Most Recent Mammogram 07/14/2021 Most Recent Bone Density 09/27/2019 Obstetrics History GPAL:G 0 P 0 0 0 0 Immunizations Vaccine Type Date Status Note Provider Dewey e and Address Organization Details Recorded Time Influenza, high-dose, trivalent, PF 0 completed AAKASH Escobar [facility] 02/21/2020 10:18:43 zoster recombinant 0 completed AAKASH Escobar [facility] 03/11/2022 11:05:27 zoster recombinant 1 completed AAKASH Escobar [facility] 03/11/2022 11:05:27 COVID-19, mRNA, LNP-S, PF, 100 mcg/0.5mL dose or 50 mcg/0.25mL dose 1 completed AAKASH Escobar [facility] 03/11/2022 11:05:27 COVID-19, mRNA, LNP-S, PF, 100 mcg/0.5mL dose or 50 mcg/0.25mL dose 1 completed AAKASH Escobar [facility] 03/11/2022 11:05:27 COVID-19, mRNA, LNP-S, PF, 100 mcg/0.5mL dose or 50 mcg/0.25mL dose 1 completed AAKASH Escobar [facility] 04/30/2024 13:36:27 Influenza, split virus, trivalent, preservative 4 completed AAKASH Escobar [facility] 03/11/2022 11:05:27 Pneumococcal conjugate PCV 13 5 completed AAKASH Escobar [facility] 03/11/2022 11:05:27 Influenza, split virus, quadrivalent, preservative 7 completed AAKASH Escobar [facility] 03/11/2022 11:05:27 Influenza, high-dose, quadrivalent, PF 1 completed AAKASH Escobar [facility] 03/11/2022 11:05:27 COVID-19, mRNA, LNP-S, PF, 100 mcg/0.5mL dose or 50 mcg/0.25mL dose 2 completed AAKASH Escobar [facility] 03/11/2022 11:05:27 Influenza, split virus, quadrivalent, preservative 6 completed AAKASH Escobar [facility] 03/11/2022 11:05:27 Influenza, high-dose, trivalent, PF 5 completed AAKASH Escobar, [facility] 03/11/2022 11:05:27 Influenza, high-dose, quadrivalent, PF [facility] 13:48:32 COVID-19, mRNA, LNP-S, PF, 100 mcg/0.5mL dose or 50 mcg/0.25mL dose 1 [facility] 13:36:27 COVID-19, mRNA, LNP-S, bivalent, PF, 30 mcg/0.3 mL dose 2 [facility] 13:48:32 COVID-19, mRNA, LNP-S, PF, 100 mcg/0.5mL dose or 50 mcg/0.25mL dose 1 completed AAKASH Escobar, [facility] 01/15/2024 09:57:26 Influenza, adjuvanted, trivalent, PF 2 completed AAKASH Leary, [facility] 09/09/2022 13:50:23 COVID-19, mRNA, LNP-S, PF, 100 mcg/0.5mL dose or 50 mcg/0.25mL dose 1 completed AAKASH Leary, [facility] 09/09/2022 13:50:23 Influenza, high-dose, quadrivalent, PF 3 completed AAKASH Escobar, [facility] 03/14/2023 09:57:20 COVID-19, mRNA, LNP-S, PF, 50 mcg/0.5 mL 3 completed AAKASH Escobar, [facility] 03/14/2023 09:57:20 Tdap 4 completed AAKASH Escobar, [facility] 12/26/2023 09:29:29 Influenza, adjuvanted, trivalent, PF 4 completed AAKASH Leary, [facility] 01/26/2024 13:59:03 COVID-19, mRNA, LNP-S, PF, facundo-sucrose, 30 mcg/0.3 mL 4 completed AAKASH Leary, [facility] 01/26/2024 13:59:03 RSV, bivalent, protein subunit RSVpreF, diluent reconstituted, 0.5 mL, PF 4 completed AAKASH Escobar, [facility] 04/30/2024 13:36:27 Influenza, high-dose, trivalent, PF 8 completed Not Available [facility] 05/04/2019 02:22:14 Influenza, high-dose, trivalent, PF 9 completed Not Available [facility] 05/04/2019 02:22:09 Influenza, split virus, trivalent, preservative 8 completed Awilda nixon, [facility] 08/14/2019 09:17:02 Td (adult), 2 Lf tetanus toxoid, preservative free, adsorbed 8 completed Awilda nixon, [facility] 08/14/2019 09:17:02 Influenza, split virus, trivalent, preservative 0 completed Awilda Guy hussain, [facility] 08/14/2019 09:17:02 Influenza, split virus, trivalent, preservative 1 completed Awilda Brooks nixon, [facility] 08/14/2019 09:17:02 pneumococcal polysaccharide PPV23 7 completed Awildarhonda nixon [facility] 08/14/2019 09:17:02 zoster live 2 completed Awilda Guyrhonda nixon [facility] 08/14/2019 09:17:02 Influenza, split virus, trivalent, preservative 3 [facility]14[facility] 09:17:02 Tdap 3 completed Deirdre Casey AAKASH hussain, [facility] 03/11/2022 11:05:27 Past Encounters Encounter ID Performer Location Encounter Start Date Encounter Closed Date Diagnosis/Indication Diagnosis SNOMED-CT Code Diagnosis ICD10 Code Diagnosis Note [id number] auto[facility] erce [address] [facility] [place] [address] 06/28/2006 00:00:00 [id number] auto[facility]Comm erce [address] [facility] [place] [address] 06/28/2006 00:00:00 [id number] auto[employer]Comm erce [address] [facility] [place] [address] 05/28/2003 00:00:00 [id number] auto[employer]Comm erce [address] [facility] [place] [address] 05/28/2003 00:00:00 [id number] autoEComm erce [address] [facility] [address] [place] [address] 05/28/2003 00:00:00 [id number] auto[facility]Comm erce [address] [facility] [place] [address] 01/19/2005 00:00:00 [id number] auto[facility]Comm erce [address] [facility] [place] [address] 02/14/2005 00:00:00 [id number] auto[employer]Comm erce [address] [facility] [place] [address] 02/14/2005 00:00:00 [id number] auto[facility] erce [address] [facility] [place] [address] 02/14/2005 00:00:00 [id number] [address] erce [address] [place] [address] 02/14/2005 00:00:00 [id number] auto[facility]Comm erce [address] [place] [address] 04/06/2005 00:00:00 [id number] auto[facility]Comm erce [address] [place] [address] 09/20/2006 00:00:00 [id number] auto[facility]Comm erce [address] [facility] [address] [place] [address] 09/20/2006 00:00:00 [id number] auto[facility]Comm erce [address] [facility] [address] [place] [address] 09/20/2006 00:00:00 [id number] autoEComm erce [address] [facility] [place] [address] 09/20/2006 00:00:00 [id number] auto[facility]Comm erce [address] [facility] [place] [address] 07/24/2007 00:00:00 [id number] auto[facility]Comm erce [address] [facility] [place] [address] 07/24/2007 00:00:00 [id number] auto[facility]Comm erce [address] [facility] [place] [address] 07/24/2007 00:00:00 [id number] autoEComm erce [address] [facility] [place] [address] 07/24/2007 00:00:00 [id number] auto[facility]Comm erce [address] [facility] [place] [address] 03/11/2008 00:00:00 [id number] auto[facility]Comm erce [address] [facility] [place] [address] 03/11/2008 00:00:00 [id number] auto[facility]Comm erce [address] [facility] [place] [address] 03/11/2008 00:00:00 [id number] autoEComm erce [address] [place] [address] 03/11/2008 00:00:00 [id number] autoEComm erce [address] [place] [address] 05/20/2008 00:00:00 [id number] autoEComm erce [address] [place] [address] 05/20/2008 00:00:00 [id number] auto[facility]Comm erce [address] [place] [address] 11/20/2008 00:00:00 [id number] auto[facility]Comm erce [address] [place] [address] 11/20/2008 00:00:00 [id number] autoEComm erce [address] [facility] [address] [place] [address] 11/20/2008 00:00:00 [id number] autoEComm erce [address] [facility] [address] [place] [address] 05/25/2009 00:00:00 [id number] autoEComm erce [address] [facility] [address] [place] [address] 05/25/2009 00:00:00 [id number] autoEComm erce [address] [place] [address] 05/25/2009 00:00:00 [id number] autoEComm erce [address] [place] [address] 07/01/2009 00:00:00 [id number] autoEComm erce [address] [place] [address] 10/29/2009 00:00:00 [id number] autoEComm erce [address] [facility] [address] [place] [address] 10/29/2009 00:00:00 [id number] autoEComm erce [address] [place] [address] 10/29/2009 00:00:00 [id number] autoEComm erce [address] [place] [address] 03/03/2010 00:00:00 [id number] autoEComm erce [address] [place] [address] 04/30/2010 00:00:00 [id number] autoEComm erce [address] [place] [address] 04/30/2010 00:00:00 [id number] autoEComm erce [address] [place] [address] 04/30/2010 00:00:00 [id number] autoEComm erce [address] [place] [address] 05/21/2010 00:00:00 [id number] autoEComm erce [address] [place] [address] 05/21/2010 00:00:00 [id number] autoEComm erce [address] [facility] [address] [place] [address] 09/01/2010 00:00:00 [id number] autoEComm erce [address] [facility] [address] [place] [address] 09/01/2010 00:00:00 [id number] autoEComm erce [address] [place] [address] 01/06/2011 00:00:00 [id number] autoEComm erce [address] [place] [address] 01/06/2011 00:00:00 [id number] autoEComm erce [address] [facility] [address] [place] [address] 01/06/2011 00:00:00 [id number] autoEComm erce [address] [facility] [address] [place] [address] 01/06/2011 00:00:00 [id number] autoEComm erce [address] [place] [address] 04/22/2011 00:00:00 [id number] autoEComm erce [address] [place] [address] 04/22/2011 00:00:00 [id number] autoEComm erce [address] [place] [address] 04/22/2011 00:00:00 [id number] auto[facility]Comm erce [address] [place] [address] 01/11/2012 00:00:00 [id number] auto[facility]Comm erce [address] [place] [address] 10/05/2012 00:00:00 [id number] autoEComm erce [address] [facility] [address] [place] [address] 10/05/2012 00:00:00 [id number] autoEComm erce [address] [facility] [address] [place] [address] 10/05/2012 00:00:00 [id number] autoEComm erce [address] [facility] [address] [place] [address] 12/06/2012 00:00:00 [id number] autoEComm erce [address] [facility] [address] [place] [address] 01/17/2013 00:00:00 [id number] autoEComm erce [address] [place] [address] 02/05/2013 00:00:00 [id number] autoEComm erce [address] [place] [address] 02/05/2013 00:00:00 [id number] autoEComm erce [address] [facility] [address] [place] [address] 02/05/2013 00:00:00 [id number] auto[facility]Comm erce [address] [place] [address] 04/24/2013 00:00:00 [id number] autoEComm erce [address] [facility],[address] Dimitri navarrete, AAKASH [address] 07/18/2013 00:00:00 [id number] autoEComm erce [address] [facility],[address] Dimit[place]arrete, AAKASH [address] 07/18/2013 00:00:00 [id number] autoEComm erce [address] [facility],[address] Dimitri navarrete, AAKASH [address] 07/18/2013 00:00:00 [id number] [address]Comm erce [address] [place] [address],[address] Dimitri navarrete, AAKASH [address] 07/18/2013 00:00:00 [id number] Beatriz Erickson jones Main Office [address] [facility] [address] [place] [address] 01/03/2014 09:08:23 01/03/2014 09:51:07 Cough [id number] Lungs CTA bilaterall y, O2 sat 97% on RA, HR WNL, no fever and she has no other sx. Will obtain CXR to r/o PNA. If no PNA pt may try allergy medicine for PND to see if this makes any difference . Her worsening tremor may also be contributi ng to her cough sx, Recommend f/u with Dr. Holly. Voice tremor [id number] Edgar stovall feels this has been worsening she will call Dr. Simon's for follow-up. 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 [address] [place] [address] 02/07/2014 08:57:59 02/07/2014 10:08:32 Adult health examination [id number] mammogram is utd, pt is overdue for colonoscop y and no more need for paps. is not exercisign due to being very busy Solitary n odule of lung [id number] seen on CXR, the radiologis t referred to CXR form 2010 saying it is unchanged but no nodule readon 2010 report I saw, for completion will get CT of chest and if present refer to pulmonary for plan on followup Screening for malignant neoplasm of colon [id number] pt will set up appt Voice tremor [id number] ch ronic Rheumatoid arthritis [id number] on MTX, followed by Dr [place] Hypothyroidism [id number] Dr Acosta gets lab [id number] Kennedy Flaherty Main Office [address] [facility] [address] [place] [address] 06/12/2014 09:38:43 06/12/2014 10:27:26 Rheumatoid arthritis 24908891 on MTX, followed by Dr Lara, is feeling well, joints better, still with fatigue Hypothyroidism 26988453 Dr Acosta gets lab Voice tremor 35151110 ch ronic, seems about the same [id number] Main Office [address] [facility] [address] [place] [address] 10/02/2014 10:10:17 10/02/2014 11:13:35 Urinary symptoms 444455095 Urine dip is clear, tx for possible vaginitis, and refer to urogyn Incontinence 75925611 PT requests another opinion regarding mesh sling tx, she will make appt with Dr. Graciela Donahue [id number] Beatriz jones Main Office [address] [facility] [address] [place] [address] 02/12/2015 08:43:53 02/12/2015 10:01:55 Adult health examination 609099365 Z00.00 pt will set up her mammogram and colonoscop y, is utd on shots, will walk more when broken toe heals. Screening for malignant neoplasm of breast 125724922 Z12.39 pt to set up Screening for malignant neoplasm of colon 367615828 Z12.11 pt to set uppt will set up appt Rheumatoid arthritis 698 47468 M06.9 on MTX, followed by Dr Lara, is feeling well, joints better, still with fatigue, is on MTX Upper resp iratory infection 85841319 J06.9 mild pt will decide with rheumatolo gy about if she should hold MTX [id number] Beatriz jones Main Office [address] [facility] [address] [place] [address] 08/14/2015 09:11:31 08/14/2015 09:55:58 Rheumatoid arthritis 95614508 M06.9 on MTX, followed by Dr Lraa, is feeling well, joints better, still with fatigue, is on MTX, encouraged exercise Unexplaine d weight loss 714818392 R63.4 slow loss, pt with stress and is undereatin g, she is going to get a colonoscop y for chronic RLQ pain, is overdue for her colonoscop y nad I urged pt to get his done, she iwll increase calories, thyroid followed and is nl, recheck in 2 months, if continue weight loss do more workup, most likley stress related Hypothyroidism 28104939 E03.9 Dr Acosta gets lab [id number] Brittnee Oconnor [facility] Main Office [address] [facility] [address] [place] [address] 10/15/2015 10:26:02 10/15/2015 11:18:[address] Acosta gets lab Unexplaine d weight loss 580598583 R63.4 weight is steady, is less stressed with her grandson out of the house, no further workupn eeded, encouraged exercise to build muscle and increase appetite Rheumatoid arthritis 698 50645 M06.9 on MTX, followed by Dr Lara, is feeling well, joints better, still with fatigue, is on MTX, encouraged exercise [id number] Segundo butts Main Office [address] [facility] [address] [place] [address] 11/19/2015 14:21:59 11/19/2015 15:20:17 Cough 99222308 R05 cough x 4 wks c abnl breath sounds - check cxr Unexplaine d weight loss 162201625 R63.4 pt had colonoscop y last week - reviewed note - one 10mm polyp removed, pending biopsy results [id number] Segundo butts Main Office [address] [facility] [address] [facility] [address] 12/03/2015 09:04:17 12/03/2015 10:27:49 Unexplained weight loss 609820268 R63.4 25 minute office visit with greater than 50% of the visit face-to-fa ce with the patient and/or family providing counseling and/or coordinati on of care. 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 [address] [place] [address] 03/16/2016 14:07:10 03/16/2016 15:16:03 Adult health examination 469955016 Z00.00 pt is utd on shots. Advance di rective discussed with patient 242366077 Z71.89 I gave pt MOLST form and proxy form, she will fill out and discuss with family, Rheumatoid arthritis 698 19304 M06.9 on MTX and plaquenil, is followed by rheumatolo gy. very poor appetitie and nausea ? from meds pt to see GI Voice tremor 01909774 R4 9.8 chronic, seems about the same, ENT felt not much to do for her Fibrosis of lung 7772768 1 J84.10 pt is undergoing an eval with Dr Granados, just had lung testign and he is working on things. Hypothyroidism 29676556 E03.9 Dr Acosta gets lab Abnormal weight loss 267 585040 R63.4 poor appetite, nausea, altered taste and smell, losing weight due to decreased calories, talked about more ensure, high calorie foods, pt to see GI to help with nausea and try a PPI to help with naurse Nausea 452187418 R11.0 [id number] Beatriz jones Main Office [address] [facility] [address] [place] [address] 07/14/2016 09:21:18 07/14/2016 10:29:33 Hypercholesterolemia 60282676 E78.2 check fasting Rheumatoid arthritis 698 99265 M06.9 on meds, doing well Voice tremor 43715835 R4 9.8 chronic, seems about the same, ENT felt not much to do for her Unexplaine d weight loss 429788264 R63.4 weight is steady, is less stressed with her grandson out of the house, no further workup needed, encouraged exercise to build muscle and increase appetite to increase high calorie foods [id number] Segundo butts Main Office [address] [facility] [address] [place] [address] 09/13/2016 10:30:51 09/13/2016 11:11:46 Pre-surgery evaluation 709891115 Z01.818 Pt. is cleared for cataract surgeries. Bilateral cataracts 9572 2004 H26.9 Hypothyroidism 11618853 E03.9 stable on meds [id number] Angela Lopez Main Office [address] [place] [address] 11/07/2016 08:47:59 11/07/2016 09:54:58 Voice tremor 89912732 R49.8 worsening and causes pt to avoid certain social situations , for years, scope last year by ENt with nl cords except tremor seen, will refer to neurology for eval and tx, also with new right hand tremor needs eval Tremor 32690811 R25.1 new in right hand worse with intention Gastroesop hageal reflux disease 946059159 K21.9 continue meds Rheumatoid arthritis 698 53610 M06.9 on meds, doing well, rheum will take over bone density Hypothyroidism 16567817 E03.9 check labs, last checked a eyar ago by Dr Acosta [id number] Beatriz jones Main Office [address] [facility] [address] [place] [address] 02/22/2017 10:17:31 02/22/2017 11:27:20 Elevated blood-pressure reading without diagnosis of hypertension 907702544 R03.0 pt had one sig difference bet LUE and RUE - others [facility] or [facility] - today difference of only 10 pts - offered reassuranc e since most likely d/t mild atheroscle rosis/calc ification - no h/o htn, aneurysm, Raynaud's, claudicati on, PAD, PVD, CVD, high chol (nl lipids 4.17) - will re-test in 1 month here at [facility] - if difference persists or gets higher than consider bp med - curr sbp is under 150 which is acceptable under current guidelines Essential tremor 1699724 09 G25.0 no tolerated primidone d/t fatigue - rev. SE c pt - encouraged her to f/u c neuro - meanwhile, give trial of 1/2 tab at bedtime x 1 wk, then 1/2 tab twice daily -- advance as tolerated will fwd this note to neuro 25 minute office visit with greater than 50% of the visit face-to-fa ce with the patient and/or family providing counseling and/or coordinati on of care. [id number] Beatirz jones Main Office [address] [facility] [address] [place] [address] 03/30/2017 08:58:37 03/30/2017 10:01:21 Adult health examination 816385759 Z00.00 mammogram is utd, pt to get colonoscop y, no pap needed Advance di rective discussed with patient 342063814 Z71.89 I discussed MOLST and health care proxy form. I gave pt MOLST form and proxy form, pt will fill out, discuss MOLST form with proxy and sign and return to our office Voice tremor 92789727 R4 9.8 pt is on primidone 25mg at night, helps her tremor in her hand, will talk to neurology about 25mg bid Osteoporosis 45930653 M8 1.0 pt to review med options with rheumatolo gy, I will get a copy of bone density, they did in their office Rib pain 686848957 R07.8 1 from coughing, has osteoporos is, at risk for fxt,w ill order rib xray, if not better in 2 weeks pt to get xray Cough 74658354 R05 post viral, lungs clear, no concern for infection [id number] Beatriz jones Main Office [address] [facility] [place] [address] 10/03/2017 14:53:30 10/03/2017 15:54:43 Chest pain 36129561 R07.9 Anxiety 77911782 F41.9 mild on maddy Tremor 27922620 R25.1 cont meds, f/u c neuro Fatigue 85738846 R53.83 had nl cbc 3.18 - see tsh below Abnormal weight loss 267 412869 R63.4 cont ensure plus, but rec increase to bid Hypothyroidism 32331980 E03.9 Gastroesop hageal reflux disease 843040747 K21.9 cont ppi [id number] Beatriz jones Main Office [address] [facility] [place] [address] 11/02/2017 08:26:36 11/02/2017 09:50:21 Cough 03304415 R05 post viral, lungs clear, no concern for infection Gastroesop hageal reflux disease 040530130 K21.9 continue meds Rheumatoid arthritis 698 14014 M06.9 on meds, doing well, rheum will take over bone density Infective pneumonia 3123 39129 J18.1 right base with rales, 3 months of cough, thick sputum, willtx with zpak, get CXR, may need CT if finding on CXR Underweight 026031722 R6 3.6 Z68.1 Patients body weight is below the normal range for age (<23). Discussed implicatio ns of low weight such as general health, bone health, immune function, iron absorption . pt with poor po intake due to recently , nausea from stress, some food aversion, eating better, will observe, recheck weight one month [id number] Pedro Howe MD Main Office [address] [address] [place] [address] 11/27/2017 13:26:27 11/27/2017 14:27:46 Gastroesophageal reflux disease 595130251 K21.9 see above Chronic cough 91397810 R 05 ongoing for about 3-4 months, had nl cxr last month and no sig improvemen t c zpak 3 wks - no h/o allergies so doubt pnd - see below - very suspicious for gerd-relat ed chronic cough. rec ppi bid 30-60 min ac meal - pt states she has plenty at home - and strongly encouraged her to call gi to see them for f/u - consider egd - see below 25 minute office visit with greater than 50% of the visit face-to-fa ce with the patient and/or family providing counseling and/or coordinati on of care. Dysphagia 49702248 R13.1 0 see above re: see gi - consider egd c dil. [id number] Beatriz jones Main Office [address] [address] [place] [address] 11/29/2017 11:43:55 11/29/2017 19:15:30 [id number] Pedro Howe MD Main Office [address] [address] [place] [address] 12/04/2017 15:18:04 12/04/2017 16:11:03 Loss of appetite 47319923 R63.0 Nausea 805507152 R11.0 Cough 06909135 R05 This has been a problem for months and is improving since her last course of abx for pneumonia. [id number] Beatriz jones Main Office [address] [address] [place] [address] 12/08/2017 14:01:53 12/08/2017 15:04:34 Influenza vaccine needed 9061873871 106 Z23 Underweight 211946987 R6 3.6 Z68.1 Patients body weight is below the normal range for age (<23). Discussed implicatio ns of low weight such as general health, bone health, immune function, iron absorption . pt with very poor calorie intake . 500 calories or less, nausea is better with zofran, continue and hold on periactin for now Loss of appetite 7727807 6 R63.0 continue zofran, it helps with nausea and pt thinks she can eat better now Pneumonia 273408691 J18. 9 continued abnormal lung exam in RLL, will get CT of chest results form [place] and after review consider pulmonary referral, pt with 2 episodes of pneumonia since 11/01, pt will get CXR in a few weeks giving time for clearing of RLL [id number] Beatriz jones Main Office [address] [place] [address] 01/26/2018 10:28:33 01/26/2018 11:11:07 Underweight 445845781 R63.6 Z68.1 doing better, gained 4lbs, eating better continue and recheck in 2 months Rheumatoid arthritis 698 53180 M06.9 on meds, doing well, rheum will take over bone density Lung field abnormal 2747 60283 R91.8 residual findings on exam RUL and RML and thick sputum even though over 2 months after pneumonia. will get CT scan and refer to pulmonary ? bronchiect asis, will try again to get CT report from [place] form 12/02 for lung doc to compare, one here from 2016 [id number] Beatriz jones Main Office [address] [place] [address] 03/28/2018 12:38:21 03/28/2018 13:24:56 Fibrosis of lung 51274722 J84.10 pt is undergoing an eval with Dr Granados, just had lung testing and he is working on things. will get PFT's in April. Has been on MTX for years for RA Rheumatoid arthritis 698 40875 M06.9 on MTX, doing well, rheum will take over bone density Voice tremor 84688815 R4 9.8 pt is on primidone 25mg at night, helps her tremor in her hand, will talk to neurology about feelings of clumbsines s Underweight 914854396 R6 3.6 Z68.1 doing better with eating, held weight and feels better Gastroesop hageal reflux disease 490775215 K21.9 continue meds for now, well controlled , after PFT's can try to wean down on the med [id number] VANDANA Harding Main Office [address] [facility] [address] [place] [address] 04/20/2018 08:46:13 04/20/2018 09:47:26 Wheezing 55771848 R06.2 duoneb X1 given with more air movement, wheezing still present. Fibrosis of lung 7117886 [address] granados. Pneumonitis 948418157 J1 8.9 sx since delmy, not improving, she did intiially have fever, will tx for possible PNA with zpak. she will skip her MTX again this week. I encouraged her to start flovent as this will help her breathing/ cough. call/ return for worsening or concerns. rest, hydration, tylenol as needed. Rheumatoid arthritis 698 [address]06[address] Lara, on MTX weekly, and hydroxychl oroquine [id number] Beatriz jones Main Office [address] [facility] [address] [place] [address] 08/08/2018 12:56:51 08/08/2018 13:53:10 Adult health examination 665733877 Z00.00 mammogram and colonosocp y are utd, , no pap needed Rheumatoid arthritis 698 68394 M06.9 on MTX, and hydrochlor oquine and they help, doing well, rheum will take over bone density Voice tremor 77064127 R4 9.8 pt is on primidone 25mg at night, helps her tremor in her hand, will talk to neurology about feelings of clumbsines s and gait feeling off. exam today with negative rhomberg Hypothyroidism 06514043 E03.9 check labs, last checked a eyar ago by Dr Acosta Underweight 092398683 R6 3.6 Z68.1 Patients body weight is below the normal range for age (<23). Discussed implicatio ns of low weight such as general health, bone health, immune function, iron absorption . Clumsiness 5101515 F82 exam with mild tremor at ftn testing, neg rhomberg, nl strength, ? side effect of primidone pt to see Dr Wilson for eval and med modificati on [id number] Beatriz jones Main Office [address] [facility] [address] [place] [address] 10/29/2018 12:41:55 10/29/2018 13:32:25 Hypothyroidism 87826827 E03.9 check labs Rheumatoid arthritis 698 24060 M06.9 on MTX, and hydrochlor oquine and they help, doing well, rheum will take over bone density Memory impairment 057160 006 R41.3 pt brought this up, daly hx, check labs, MRI and start eval, if unable to see memory disorder clinic at [facility] will have Dr Wilson help with eval since pt sees her already Computed t omography result abnormal 111542148 R93.89 right lung base with abn exam, pt with some pain there, Ct of chest with persistent abn, Dr Granados is following pt and scans. [id number] Beatriz jones Main Office [address] [facility] [address] [place] [address] 11/14/2018 09:05:42 11/14/2018 10:13:21 Memory impairment 456789771 R41.3 will round out lab work and refer to [facility] memory disorders clinic. MRI of brain done, small calcified meningioma , not causing any mass effect, no edema and microvascu lar changes, no CVA MMSE 24/30, lost 3 points on counting from 100 by 7's and one oint on rememberin g names of 3 things. REferral already put in to [facility] memory disorders program, needs eval Fatigue 07275418 R53.83 [id number] Cony Drew Main Office [address] [facility] [address] [place] [address] 01/02/2019 13:11:05 01/02/2019 14:03:53 Acute pharyngitis 324644328 J02.9 steam, salt water gargles several times a day, otc pain reliever as needed. Pneumonia 770696973 J18. 9 bronchitis / mild pneumonia, will start antibiotic . Pt requests zpack, otc cough med as needed, rest and hydration. Call if not improving within a few days to a week, sooner if worsening. Cough 32169704 R05 add albuterol prn for wheeze, restart flovent. Side effects of med reviewed [id number] Beatriz jones Main Office [address] [facility] [address] [place] [address] 01/25/2019 11:21:57 01/25/2019 11:55:41 Hypothyroidism 15381446 E03.9 continue mes, labs utd Intracrani al meningioma 686384732 D32.0 repeat MRI 12/2019 no concerns Fibrosis of lung 5353039 [address] Granados, has an appt iwth him in 03/05 with imaging Rheumatoid arthritis 698 37428 M06.9 on MTX, and hydrochlor oquine and they help, doing well, rheum will take over bone density Influenza vaccine needed 9638009616 106 Z23 Mild memor y disturbance 214105139 R41.3 had memory reecetorsten, reviewed report with pt, [id number] Beatriz jones Main Office [address] [facility] [address] [place] [address] 08/13/2019 11:48:25 08/13/2019 14:12:02 Rheumatoid arthritis 56614322 M06.9 on MTX, and hydrochlor oquine and they help, doing well, rheum will take over bone density. pt knows to keep with precaution s against Covid 19 due to her risk factors. Hypothyroidism 86907656 E03.9 continue mes Gastroesop hageal reflux disease 329739067 K21.9 continue med, GERd well controlled . Counseling 119855756 Z71 .9 Health advice, education or counseling done for COVID 19 pt is at higher risk of covid due to mtx and age and RA [id number] Angela Lopez [facility] [address] [facility] [address] [place] [address] 11/25/2019 13:34:47 11/25/2019 16:24:19 Dyspnea at rest 392750674 R06.00 Worseing in context of pt with known chronic lung disease and now pleuritic pain. Strong suspicion for PNA, less likely PE. Will cover for asthma and pneumonia while ruling out COVID 19. Check CXR if COVID testing is negative. Check CBC and d-dimer if CXR is negative. Fibrosis of lung 1087436 1 J84.10 Moderate p ersistent asthma 206615457 J45.41 Pleuritic pain 8043548 R 07.81 Exposure t o viral disease 2890250542 48319 Z03.818 [id number] [facility] [address] [facility] [address] [place] [address] 12/06/2019 10:35:07 12/06/2019 11:08:59 Rheumatoid arthritis 84588127 M06.9 on MTX, and hydrochlor oquine and they help, doing well, rheum will take over bone density. pt knows to keep with precaution s against Covid 19 due to her risk factors. Gastroesop hageal reflux disease 552328423 K21.9 continue med, GERd well controlled . Hypothyroidism 99880131 E03.9 continue meds Intracrani al meningioma 907131131 D32.0 repeat MRI 12/2019 order put in Acute exac erbation of moderate persistent asthma 8588791268 26592 J45.41 finishing prednisone , was on abx doing better will s milli stroud in 02/2020 sooner if not improving [id number] [facility] Main Office [address] [facility] [address] [place] [address] 02/21/2020 09:58:56 02/21/2020 11:01:38 Adult health examination 511845114 Z00.00 mammogram and colonosocp y are utd, , no pap needed Hypothyroidism 93232399 E03.9 continue meds check labs Intracrani al meningioma 500199124 D32.0 repeat MRI 12/2019 showed no change in size, no need to follow. Mild memor y disturbance 176621872 R41.3 had memory eval, reviewed report with pt, and she did a telehealth visit in 10/04, will get record of that report Rheumatoid arthritis 698 03337 M06.9 on MTX, and hydrochlor oquine and they help, doing well, rheum will take over bone density. pt knows to keep with precaution s against Covid 19 due to her risk factors. Voice tremor 88336451 R4 9.8 chronic Moderate p ersistent asthma 191192008 J45.[address] Granados and she is on inhalers [id number] Beatriz titusenzo Main Office [address] [facility] [address] [place] [address] 06/26/2020 09:58:12 06/26/2020 10:45:49 Mild memory disturbance 232175095 R41.3 had memory eval at [facility], no gross deficits, she is not sure if she saw Dr Morocho as recc, pt with a cerebral meningioma , will refer back for update with memory clinic and if she has not seen dR Morocho will set that up too Gastroesop hageal reflux disease 618447468 K21.9 increase in epigastric discomfort , will increase PPI to bid and recheck in 3 months Essential hypertension 64790887 I10 new problem, start med, high at home, will arrange [facility] too Intracrani al meningioma 019453195 D32.0 repeat MRI 12/2019 showed no change in size, no need to follow. Rheumatoid arthritis 698 42470 M06.9 on MTX, and hydrochlor oquine and they help, doing well, rheum will take over bone density. pt knows to keep with precaution s against Covid 19 due to her risk factors. got the vaccine [id number] Beatriz titusenzo Main Office [address] [facility] [address] [place] [address] 09/30/2020 10:47:12 09/30/2020 11:33:53 Essential hypertension 00019134 I10 pt with some postural dizziness, will have her stop lisinopril 5mg and check BP's on [facility] monitor and call if hier than 135/80. Mild memor y disturbance 929423741 R41.3 had memory eval at [facility], no gross deficits, she is not sure if she saw Dr Morocho as recc, pt with a cerebral meningioma stable on MRI sees neurology for voice tremor, I asked her next time to talk about he memory disturbanc e. keeping things straight, writes a lot down Rheumatoid arthritis 698 82240 M06.9 on MTX, and hydrochlor oquine and they help, doing well, rheum will take over bone density. pt knows to keep with precaution s against Covid 19 due to her risk factors. got the vaccine Voice tremor 39375259 R4 9.8 chronic, followed by [facility] neurology Hypothyroidism 05971401 E03.9 continue meds check labs Intracrani al meningioma 847042090 D32.0 repeat MRI 12/2019 showed no change in size, no need to follow. Postural dizziness 55758 7008 R42 will stop lisinopril and pt to monitor in [facility] . if BP elevates will restart med [id number] Beatriz jones Main Office [address] [facility] [place] [address] 03/04/2021 12:58:19 03/04/2021 13:45:21 Adult health examination 545640952 Z00.00 colonoscop y is due, pt is deciding if she wants Essential hypertension 20090049 I10 BP well controlled continue meds and check labs Hypothyroidism 02505367 E03.9 continue meds check labs Mild memor y disturbance 535451402 R41.3 had memory eval at [facility], no gross deficits, she is not sure if she saw Dr Morocho as recc, pt with a cerebral meningioma stable on MRI sees neurology for voice tremor Rheumatoid arthritis 698 22165 M06.9 on MTX, and hydrochlor oquine and they help, doing well, rheum will take over bone density. pt knows to keep with precaution s against Covid 19 due to her risk factors. got the vaccine History of polyp of colon 642846498 Z86.010 pt deciding on getting colonoscop y, lost a few pounds, feels she is eating well, I advised pt to seeGI and discuss if continues to lose weight despite eating well, Hypercholesterolemia 136 49921 E78.2 [id number] Cony Drew Main Office [address] [place] [address] 09/01/2021 13:21:57 09/01/2021 14:28:58 Hypothyroidism 16823310 E03.9 stable, labs up to date, recheck in 6 mos, no dose change Voice tremor 52974150 R4 9.8 followed for this and essential tremor by neuro, has up coming appt, uses primidone Esophageal dysphagia 408 15487 R13.19 to see GI for EGD, pt agrees to make appt Elevated blood-pressure reading without diagnosis of hypertension 900723849 R03.0 running high today but ok at TH at home, will follow in the next few days and if remains up will call. Last yr tried BP med with bad side effects, would consider treating again if reading over 140/90 Irritable bowel syndrome 84647611 K58.[address] Layton, she has met with her already and was deciding if she wanted to do a colonoscop y. 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 Rheumatoid arthritis 698 97627 M06.9 on MTX, and hydrochlor oquine and they help, doing well, rheum will take over bone density. pt knows to keep with precaution s against Covid 19 due to her risk factors. got the vaccine Fatigue 41721477 R53.83 check sugar pt gets labs at rheumatolo gy. [id number] Beatriz Erickson jones Main Office [address] [address] [place] [address] 05/11/2022 08:00:39 05/11/2022 09:41:57 [id number] JHON PULIDO MD Main Office [address] [address] [place] [address] 05/19/2022 13:42:54 05/19/2022 14:20:57 Essential hypertension 14635094 I10 - BP today is 159/70, pt left before repeating BP- pt monitored by [employer], average for April is 130/62- c/w metoprolol succinate 25mg QD Pt counselled on:-Dietar y Approaches to Stop Hypertensi on (DASH) is an eating plan rich in fruits, vegetables , whole grains, fish, poultry, nuts, legumes, and low-fat dairy. These foods are high in crabtree nutrients such as potassium, magnesium, calcium, fiber, and protein. -Advised continued adherence to medication s and low salt diet - extensive counsellin g done regarding dietary habits. -Encourage d regular aerobic exercise 30 min for 4-5 x week. -BP monitoring at home advised to bring log at every visit -Side-effe cts of high BP can cause Stroke, Heart attack and even d/w pt -D/w pt when to call 911 or reach out to Health care provider: >Think you are having a reaction to a medicine you are taking. >Have headaches that keep coming back (recurring ). >Feel dizzy. >Have swelling in your ankles. >Have trouble with your vision. 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 - noted on exam today- ordered a holter monitor for further evaluation - pt is currently on metoprolol succinate 25mg QD, depending on the number noted on the holter monitor will consider increasing the medication - pt was referred to cardiology Mitral abigail ve regurgitation 66091715 I34.0 - noted on ECHO cardiogram done during hospitaliz ed- currently asymptomat ic- pt was referred to cardiology - will continue to monitor Atypical chest pain 1025 97832 R07.89 - now resolved- ACS was ruled in the ED> troponin x2 negative> EKG showing PVCs- pt was seen by cardiology while in the hospital and recommende d stress test which was ordered- pt also referred to cardiologi st Transition from acute care to self-care [id number] 40788 Z76.89 - hospital paperwork reviewed- pt was admitted to r/out ACS Hypothyroidism 95952024 E03.9 - in march it was noted that patient T4 was elevated therefore levothyrox ine was reduced to 50mcg- ordered repeat TSH and free T4 for further evaluation to ensure levels have normalized [id number] JHON PULIDO MD Main Office [address] [facility] [place] [address] 07/08/2022 13:39:47 07/08/2022 14:08:59 Atypical chest pain 818256125 R07.89 - now resolved- ACS was ruled in the ED> troponin x2 negative> EKG showing PVCs- pt was seen by cardiology while in the hospital and recommende d stress test which was ordered> exercise stress test was inconclusi ve therefore pharmacolo gical stress test was ordered- pt also referred to cardiologi , as an appoitment Essential hypertension 32646671 I10 - BP today is 145/68- pt monitored by [employer], average for April is 130/62> BP at home is normal- c/w metoprolol succinate 25mg QD, no change at this time Pt counselled on:-Dietar y Approaches to Stop Hypertensi on (DASH) is an eating plan rich in fruits, vegetables , whole grains, fish, poultry, nuts, legumes, and low-fat dairy. These foods are high in crabtree nutrients such as potassium, magnesium, calcium, fiber, and protein.-A dvised continued adherence to medication s and low salt diet - extensive counsellin g done regarding dietary habits.-En couraged regular aerobic exercise 30 min for 4-5 x week.-BP monitoring at home advised to bring log at every visit-Side -effects of high BP can cause Stroke, Heart attack and even d/w pt-D/w pt when to call 911 or reach out to Health care provider:> Think you are having a reaction to a medicine you are taking.>[place]ortez ve headaches that keep coming back (recurring ).>Feel dizzy.>Hav e swelling in your ankles.>[place] ve trouble with your vision. Ventricula r premature complex 606476546 I49.3 - noted on exam today- ordered a holter monitor for further evaluation > pt mentions it was performed, will try to obtain results- pt is currently on metoprolol succinate 25mg QD, depending on the number noted on the holter monitor will consider increasing the medication - pt was referred to cardiology Hypothyroidism 20855444 E03.9 - in march it was noted that patient T4 was elevated therefore levothyrox ine was reduced to 50mcg- ordered repeat TSH and free T4 for further evaluation to ensure levels have normalized Fatigue 43782484 R53.83 Z00.00 Hyperlipidemia 80112275 E78.5 Z00.00 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.409 - noted by neurology, will try to obtain most recent neurology note [id number] JHON PULIDO MD Main Office [address] [facility] [place] [address] 09/09/2022 13:33:55 09/09/2022 14:29:17 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 - eosinophil s 13.8> 18.7- hepatic function panel, vitamin B12 and tryptase are normal- pt is currently on several medication s that can increase eosinophil count such as hydroxychl oroquine, methotrexa te and primidone- pt was advised to speak with rheumatolo gist about increase in eosinophil s- pt referred to hematology has an appoitment on 10/19/2022 - ordered repeat CBC Atypical chest pain 1025 24588 R07.89 - now resolved- ACS was ruled in the ED> troponin x2 negative> EKG showing PVCs- nuclear stress done on 08/30 is normal- pt was also referred to cardiologi st however pt missed call from the office therefore nothing has been scheduled. Pt advised to call clinic. Essential hypertension 26331580 I10 - BP today is 148/66, pt left before repeating BP- pt monitored by [employer], average for July is 122/58- c/w metoprolol succinate 25mg QD Pt counselled on:-Dietar y Approaches to Stop Hypertensi on (DASH) is an eating plan rich in fruits, vegetables , whole grains, fish, poultry, nuts, legumes, and low-fat dairy. These foods are high in crabtree nutrients such as potassium, magnesium, calcium, fiber, and protein.-A dvised continued adherence to medication s and low salt diet - extensive counsellin g done regarding dietary habits.-En couraged regular aerobic exercise 30 min for 4-5 x week.-BP monitoring at home advised to bring log at every visit-Side -effects of high BP can cause Stroke, Heart attack and even d/w pt-D/w pt when to call 911 or reach out to Health care provider:> Think you are having a reaction to a medicine you are taking.>[place]ort[place] ve headaches that keep coming back (recurring ).>Feel dizzy.>Hav e swelling in your ankles.>[place] ve trouble with your vision. Hypothyroidism 60135339 E03.9 - in march it was noted that patient T4 was elevated therefore levothyrox ine was reduced to 50mcg- ordered repeat TSH and free T4 for further evaluation to ensure levels have normalized [id number] JHON PULIDO MD Main Office [address] [facility] [address] [place] [address] [place], [place] [address] 03/14/2023 09:45:42 03/14/2023 10:29:08 Essential hypertension 31075919 I10 - at goal- BP today is 129/73- pt monitored by [employer], average for January is 121/56- c/w metoprolol succinate 25mg QD (pt was seen by cardiology no change in regimen) Pt counselled on:-Dietar y Approaches to Stop Hypertensi on (DASH) is an eating plan rich in fruits, vegetables , whole grains, fish, poultry, nuts, legumes, and low-fat dairy. These foods are high in crabtree nutrients such as potassium, magnesium, calcium, fiber, and protein.-A dvised continued adherence to medication s and low salt diet - extensive counsellin g done regarding dietary habits.-En couraged regular aerobic exercise 30 min for 4-5 x week.-BP monitoring at home advised to bring log at every visit-Side -effects of high BP can cause Stroke, Heart attack and even d/w pt-D/w pt when to call 911 or reach out to Health care provider:> Think you are having a reaction to a medicine you are taking.>[place] ve headaches that keep coming back (recurring ).>Feel dizzy.>Hav e swelling in your ankles.>[place] ve trouble with your vision. Gastroesop hageal reflux disease 777085655 K21.9 The following lifestyle changes are recommende d and counseled :-Losing weight: Losing weight helps people who are overweight to reduce acid reflux.-Ra ising the head of your bed six to eight inches-Abraham iding foods that trigger symptoms ? 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 - eosinophil s 13.8> 18.7>4.1>6 .7- hepatic function panel, vitamin B12 and tryptase are normal- pt is currently on several medication s that can increase eosinophil count such as hydroxychl oroquine, methotrexa te and primidone- pt was advised to speak with rheumatolo gist about increase in eosinophil s> last seen on 01/24/2023 , no changes in regimen- has patient eosinophil count trended down no need to see hematology anymore Voice tremor 27550401 R4 9.8 - pt is taking primidone 25mg BID Mitral abigail ve regurgitation 63391670 I34.0 - noted on ECHO cardiogram done during hospitaliz ed- currently asymptomat ic- pt was seen by cardiology on 09/15/2022 Rheumatoid arthritis 698 31672 M06.9 - pt follows with rheum- pt is currently on hydroxychl oroquine 200mg and methotrexa te 0.5mL injection weekly- c/w folic acid 1mg QD Hypothyroidism 08058330 E03.9 - under good control with levothyrox ine 50mcg- recent TSH (07/12/22) 1.46 Irritable bowel syndrome 31828349 K58.9 - under good control- mixed type Increased frequency of urination 907032603 R35.0 SYMPTOMS:b urning with urination? {{yes no*} }frequency ? {{yes* no} }hematuria ? {{yes no*} }lower abdominal pain? {{yes* no} }symptoms similar to previous UTI? {{yes no* NA}} POSSIBLE CONTRAINDI CATIONS TO TELEPHONE TREATMENT: > 65 years of age? {{yes* no} }fevers? {{yes no*} }recent UTI (within 1 month)? {{yes no*} }new low back pain? {{yes no*} }nausea or vomiting? {{yes no*} }? {{yes no*} }history of interstiti al cystitis? {{yes no*} } PROVIDER ACTION: Reviewed nursing notes? {{yes no}} Recommende d action {{appropri ate for telephone treatment needs appointmen t must drop off urine for culture}} Antibiotic treatment {{Bactrim DS x 3 days Bactr im DS x 7 days Macro bid x 7 days Cipro x 3 days Cipro x 7days anot her medication (provider will prescribe) NA}} [id number] Jose Daniels MD Main Office [address] 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 6225892122 9912815 J44.9 Posterior rhinorrhea 758 68827 R09.82 Acute exac erbation of chronic obstructive pulmonary disease 367871235 J44.1 [id number] JHON PULIDO MD Main Office [address] [facility] [place], [place] [address] 08/22/2023 10:38:23 08/22/2023 11:04:59 Essential hypertension 21015402 I10 - at goal- BP today is 126/68 (with medium)> small cuff 132/70- home BP today 201/80 taken office- pt monitored by [employer], average for July is 190/81- pt advised to call [facility] to get a new machine as hers is not accurate- c/w metoprolol succinate 25mg QD (pt was seen by cardiology no change in regimen) Pt counselled on:-Dietar y Approaches to Stop Hypertensi on (DASH) is an eating plan rich in fruits, vegetables , whole grains, fish, poultry, nuts, legumes, and low-fat dairy. These foods are high in crabtree nutrients such as potassium, magnesium, calcium, fiber, and protein.-A dvised continued adherence to medication s and low salt diet - extensive counsellin g done regarding dietary habits.-En couraged regular aerobic exercise 30 min for 4-5 x week.-BP monitoring at home advised to bring log at every visit-Side -effects of high BP can cause Stroke, Heart attack and even d/w pt-D/w pt when to call 911 or reach out to Health care provider:> Think you are having a reaction to a medicine you are taking.>[place] ve headaches that keep coming back (recurring ).>Feel dizzy.>Hav e swelling in your ankles.>[place] ve trouble with your vision. Hypothyroidism 70750518 E03.9 - under good control with levothyrox ine 50mcg- recent TSH (07/12/22) 1.46 Idiopathic eosinophilia 354998873 D72.10 - eosinophil s 13.8> 18.7>4.1>6 .7- hepatic function panel, vitamin B12 and tryptase are normal- pt is currently on several medication s that can increase eosinophil count such as hydroxychl oroquine, methotrexa te and primidone- pt was advised to speak with rheumatolo gist about increase in eosinophil s> last seen on 01/24/2023 , no changes in regimen- has patient eosinophil count trended down no need to see hematology anymore Pruritic rash 64940453 L 28.2 - has been on-going since May 2023- located over arms, legs, back and chest- pt was seen by derm who told her that it is eczema- lesions are scratched over therefore hard to appreciate morphology - will try clotrimazo le-betamet hasone cream as rash over right lower leg appears like tinea corporis- other possibilit y is arthropod infection due to itchiness and most of body is affected however partner not affected and no infection noted on feet or webs- if no improvemen t with treatment patient advised to contact derm [id number] JHON PULIDO MD Main Office [address] [facility] [address] [facility] [place] [address] 09/18/2023 10:42:12 09/18/2023 11:19:36 Adult health examination 096929141 Z00.00 Health Maintenanc e FemaleA) Patient was counseled on healthy diet, exercise and nutrition. BMI of 16.8 B) ScreeningL ast Mammogram: aged out Last Pap smear: aged out Last Colonoscop y: aged out Last DEXA scan:Date: 09/27/2019R esult: osteoporos is C) Vaccines:I nfluenza: 01/27/2023 TdAP: 01/24/2013 Zoster: 04/17/2011, 02/25/2020 , 04/28/2020 CV13: 04/17/2014PP SV23: 01/15/2007 COVID: 05/21/2020, 06/18/2020, 02/09/2021 , 08/20/2021, 02/18/2022, 01/27/2023 D) Routine blood work orderedE) Updated patient's history RTC in one year for annual exam or sooner if any acute complaints Requires a tetanus booster 443000446 Z28.39 Essential hypertension 22637905 I10 - at goal- BP today is 126/68> small cuff 132/70- home BP today 201/80 taken office- pt monitored by [employer], average for July is 190/81- pt advised to call [facility] to get a new machine as hers is not accurate- c/w metoprolol succinate 25mg QD (pt was seen by cardiology no change in regimen) Pt counselled on:-Dietar y Approaches to Stop Hypertensi on (DASH) is an eating plan rich in fruits, vegetables , whole grains, fish, poultry, nuts, legumes, and low-fat dairy. These foods are high in crabtree nutrients such as potassium, magnesium, calcium, fiber, and protein.-A dvised continued adherence to medication s and low salt diet - extensive counsellin g done regarding dietary habits.-En couraged regular aerobic exercise 30 min for 4-5 x week.-BP monitoring at home advised to bring log at every visit-Side -effects of high BP can cause Stroke, Heart attack and even d/w pt-D/w pt when to call 911 or reach out to Health care provider:> Think you are having a reaction to a medicine you are taking.>[place] ve headaches that keep coming back (recurring ).>Feel dizzy.>Hav e swelling in your ankles.>[place] ve trouble with your vision. Gastroesop hageal reflux disease 582233321 K21.9 The following lifestyle changes are recommende d and counseled :-Losing weight: Losing weight helps people who are overweight to reduce acid reflux.-Ra ising the head of your bed six to eight inches-Abraham iding foods that trigger symptoms ? Avoid excessive caffeine, chocolate, alcohol, peppermint , and fatty foods.-sto pped omeprazole 20mg QD, switching to tums Hypothyroidism 13739966 E03.9 - under good control with levothyrox ine 50mcg- recent TSH (07/12/22) 1.46 Rheumatoid arthritis 698 52836 M06.9 - pt follows with rheum- pt is currently on hydroxychl oroquine 200mg and methotrexa te 0.5mL injection weekly- c/w folic acid 1mg QD Voice tremor 88077644 R4 9.8 - pt is taking primidone 25mg BID- will get most recent note from neurology Adjustment disorder with depressed mood 41601266 F43.21 - PHQ-9 score of 11 and MADDY-7 score of 9- most of the anxiety and sadness is coming from whether or not to sell the house- at this time will monitor patient if no improvemen t in 3 months will consider starting a med [id number] JHON PULIDO MD Main Office [address] [place] [address] 12/26/2023 09:23:00 12/26/2023 09:59:12 Adjustment disorder with depressed mood 55444081 F43.21 - now resolved- PHQ-9 score of 9 and MADDY-7 score of 4- improved anxiety and sadness as there has now been a decision made however patient is stressed to be moving Unintentio nal weight loss 002732010 R63.4 - new problem- pt has lost 7lbs since last visit- this is most likely due to the increase in physical activity patient is currently undergoing with the move of her house- pt also does not eat enough and does sometimes miss meals by mistake as she currently does not know the meal times for were she is leaving- pt was advised she will need to gain 2 lbs in 4 weeks> if no improvemen t, will likely have to add an appetite stimulant or can start mirtazapin e [id number] EDGAR HEBERT Main Office [address] [address] [place] [address] 01/11/2024 11:19:35 01/17/2024 11:36:03 [id number] EDGAR HEBERT Main Office [address] [place] [address] 01/15/2024 09:42:42 01/15/2024 10:37:45 Transition of care 2582465062 105 Z75.8 reviewed hospital documentat ion Essential hypertension 68180010 I10 elevated in office reading 168/67 then 150/70-cur rently on metoprolol 25mg QD-will have pt return on amlodipine 5mg QD-c/w monitoring BP at home Cerebrovas cular accident 247714906 I63.9 -MRI from 12/29 revealed focal acute infarct in the left frontal centrum semiovale and an acute infarct in the cortical andrews matter of posterior left parietal lobe; no mass effect or hemorrhagi c transforma tion-CTA showed no stenosis or occlusions -c/w aspirin daily Chronic ob structive pulmonary disease 92456948 J44.9 c/w budesonide nebs daily Rheumatoid arthritis 698 07423 M06.9 c/w hydroxychl oroquine 200mg every other day and methotrexa te weekly 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 [address] [facility] [place] [address] 01/26/2024 13:33:29 01/26/2024 14:28:45 Cerebrovascular accident 346115436 I63.9 - c/w ASA 81mg- increased atorvastat in from 40mg to 80mg- located in the left frontal and parietal lobe- pt as advised to call her neurology to follow-up- weakness and speech are back to normal Essential hypertension 26420795 I10 - at goal- BP today is 110/58- c/w metoprolol succinate 25mg QD and amlodipine 5mg QD> pt was told to check her BP in AM, if systolic BP is less than 100 she is too hold medication > at next visit may consider decreasing to 2.5mg Pt counselled on:-Dietar y Approaches to Stop Hypertensi on (DASH) is an eating plan rich in fruits, vegetables , whole grains, fish, poultry, nuts, legumes, and low-fat dairy. These foods are high in crabtree nutrients such as potassium, magnesium, calcium, fiber, and protein.-A dvised continued adherence to medication s and low salt diet - extensive counsellin g done regarding dietary habits.-En couraged regular aerobic exercise 30 min for 4-5 x week.-BP monitoring at home advised to bring log at every visit-Side -effects of high BP can cause Stroke, Heart attack and even d/w pt-D/w pt when to call 911 or reach out to Health care provider:> Think you are having a reaction to a medicine you are taking.>[place] ve headaches that keep coming back (recurring ).>Feel dizzy.>Hav e swelling in your ankles.>[place] ve trouble with your vision. Unintentio nal weight loss 701607196 R63.4 - improving- 4lbs increase- will continue to monitor> pt is eating lunch more consistant ly Adjustment disorder with depressed mood 29110646 F43.21 - now resolved- PHQ-9 score of 9 and MADDY-7 score of 4- improved anxiety and sadness as there has now been a decision made however patient is stressed to be moving Gastroesop hageal reflux disease 386205005 K21.9 The following lifestyle changes are recommende d and counseled :-Losing weight: Losing weight helps people who are overweight to reduce acid reflux.-Ra ising the head of your bed six to eight inches-Abraham iding foods that trigger symptoms ? Avoid excessive caffeine, chocolate, alcohol, peppermint , and fatty foods.-sto pped pantoprazo le and c/w tums (pt prefers this) [id number] JHON PULIDO MD Main Office [address] [place] [address] 04/30/2024 13:30:18 04/30/2024 14:10:11 Cerebrovascular accident 205938014 I63.9 - c/w ASA 81mg- as patient is having trouble taking atorvastat in 80mg will send for atorvastat in 40mg x2- located in the left frontal and parietal lobe- pt as advised to call her neurology to follow-up- weakness and speech are back to normal Essential hypertension 82909134 I10 - slightly elevated- BP today is 132/65- c/w metoprolol succinate 25mg QD- stopped amlodipine 5mg QD due to leg swelling- started patient on furosemide 20mg due to bilateral lower extremity edema- RTC in 4 weeks Pt counselled on:-Dietar y Approaches to Stop Hypertensi on (DASH) is an eating plan rich in fruits, vegetables , whole grains, fish, poultry, nuts, legumes, and low-fat dairy. These foods are high in crabtree nutrients such as potassium, magnesium, calcium, fiber, and protein.-A dvised continued adherence to medication s and low salt diet - extensive counsellin g done regarding dietary habits.-En couraged regular aerobic exercise 30 min for 4-5 x week.-BP monitoring at home advised to bring log at every visit-Side -effects of high BP can cause Stroke, Heart attack and even d/w pt-D/w pt when to call 911 or reach out to Health care provider:> Think you are having a reaction to a medicine you are taking.>[place] ve headaches that keep coming back (recurring ).>Feel dizzy.>Hav e swelling in your ankles.>[place] ve trouble with your vision. Gastroesop hageal reflux disease 435357876 K21.9 The following lifestyle changes are recommende d and counseled :-Losing weight: Losing weight helps people who are overweight to reduce acid reflux.-Ra ising the head of your bed six to eight inches-Abraham iding foods that trigger symptoms ? Avoid excessive caffeine, chocolate, alcohol, peppermint , and fatty foods.-sto pped pantoprazo le and c/w tums (pt prefers this) Rheumatoid arthritis 698 73418 M06.9 - pt follows with rheum- pt is currently on hydroxychl oroquine 200mg and methotrexa te 0.5mL injection weekly- c/w folic acid 1mg QD Hypothyroidism 71583736 E03.9 - under good control with levothyrox ine 50mcg- recent TSH (07/12/22) 1.46- ordered repeat levels- on recent imaging from [facility], CT scan of the lungs showed thyromegal y, will check thyroid levels and then order U/S of the thyroid Edema of l ower extremity [id number] R60.0 - bilateral 2+- pt has also gained weight which could be due to fluid retention as well- ordered BNP- ordered U/S echo- pt was started on furosemide 20mg QD- RTC in 4 weeks Increased frequency of urination [id number] R35.0 SYMPTOMS:b urning with urination? {{yes no*} }frequency ? {{yes* no} }hematuria ? {{yes no*} }lower abdominal pain? {{yes* no} }symptoms similar to previous UTI? {{yes no* NA}} POSSIBLE CONTRAINDI CATIONS TO TELEPHONE TREATMENT: > 65 years of age? {{yes* no} }fevers? {{yes no*} }recent UTI (within 1 month)? {{yes no*} }new low back pain? {{yes no*} }nausea or vomiting? {{yes no*} }? {{yes no*} }history of interstiti al cystitis? {{yes no*} } PROVIDER ACTION: Reviewed nursing notes? {{yes no}} Recommende d action {{appropri ate for telephone treatment needs appointmen t must drop off urine for culture}} Antibiotic treatment {{Bactrim DS x 3 days Bactr im DS x 7 days Macro bid x 7 days Cipro x 3 days Cipro x 7days anot her medication (provider will prescribe) NA}} [id number] JHON PULIDO MD Main Office [address] [facility] [address] [facility] AAKASH NAVARRETE [address] 05/31/2024 10:37:18 05/31/2024 11:11:28 Essential hypertension [id number] I10 - at goal- BP today is 133/58 and on repeat 128/74- c/w metoprolol succinate 25mg QD and furosemide 20mg QD- stopped amlodipine 5mg QD due to leg swelling Pt counselled on:-Dietar y Approaches to Stop Hypertensi on (DASH) is an eating plan rich in fruits, vegetables , whole grains, fish, poultry, nuts, legumes, and low-fat dairy. These foods are high in crabtree nutrients such as potassium, magnesium, calcium, fiber, and protein.-A dvised continued adherence to medication s and low salt diet - extensive counsellin g done regarding dietary habits.-En couraged regular aerobic exercise 30 min for 4-5 x week.-BP monitoring at home advised to bring log at every visit-Side -effects of high BP can cause Stroke, Heart attack and even d/w pt-D/w pt when to call 911 or reach out to Health care provider:> Think you are having a reaction to a medicine you are taking.>Crotez ve headaches that keep coming back (recurring ).>Feel dizzy.>Hav e swelling in your ankles.>[place]ortez ve trouble with your vision. Edema of l ower extremity [id number] R60.0 - improved- pt has also gained weight which could be due to fluid retention as well- slightly elevated BNP- ordered U/S echo -> scheduled- c/w furosemide 20mg QD Cerebrovas cular accident [id number] I63.9 - c/w ASA 81mg- as patient is having trouble taking atorvastat in 80mg will send for atorvastat in 40mg x2- located in the left frontal and parietal lobe- pt as advised to call her neurology to follow-up- weakness and speech are back to normal Health Concerns Section Related Observation LastModified by Organization Thaddeus villalpando LastModified Time None Recorded Concern Status LastModified by Organization Details LastModified Time None Recorded Advance Directives Directive Y: HCP Payers Encounter Date Sequence Insurance Name Policy Number Policy Bains Covered Member ID Bains Member ID Guarantor Name 01/11/2024 2 [place] [id number] Mckenna C Kj [id number] Mckenna Underwood 01/11/2024 1 [place] Mckenna Nikkie Underwood [id number] Mckenna Underwood 01/15/2024 2 [place] [id number] Mckenna Underwood [id number] Mckenna Underwood 01/15/2024 1 [place] Mckenna C Kj [id number] Mckenna Underwood 01/26/2024 2 [place] [id number] Mckenna Underwood [id number] Mckenna Underwood 01/26/2024 1 [place] Mckenna Nikkie Underwood [id number] Mckenna Underwood 04/30/2024 2 [place] [id number] Mckenna Nikkie Underwood [id number] Mckenna Underwood 04/30/2024 1 [place] Mckenna Nikkie Underwood [id number] Mckenna Underwood 05/31/2024 2 [place] [id number] Mckenna Underwood [id number] Mckenna Underwood 05/31/2024 1 [place] [place] Mckenna Underwood [id number] Mckenna Underwood Notes Date Note Type Note Provider Name and Address Organization Details Recorded Time 01/11/2024 text/html Hospitalization Contact RecordReported bypatient.Follow UpHospital[facility]; admit date: (Please enter in format 'MM/DD/YYYY') (01/02/2024); date of discharge: (Please enter in format 'MM/DD/YYYY') (01/10/2024); date of contact: (Please enter in format 'MM/DD/YYYY') (01/11/2024)Notes:Med icare covered inpatient stay? yes Medicare JOHN with in 48 working hours? yes High Complexity code valid on or before:January Moderate Complexity code valid on or before: January HCP on file? no MOLST on file? yes Discharge Summary available? yes 83 year old female with several comorbidities including COPD, cognitive dysfunction present initial at [facility] complaining of right hand heaviness. Family noted facial drooping ad difficulty ambulating the night before. MRI of brain was ordered revealing signs of stroke . CTA was within normal limits, ekg and labs within normal limits as well. Neurologist was consulted and recommend patient started on baby aspirin . Patient was [facility] for further medical management and re conditioning. During rehab stay patient hit all milestones, received PT, OT , senior care. Medication amlodipine was held , sent message to provider if should continue . [employer] Operator JOHN call to patient regarding discharge status , patient reports happy to be home. Received call from [facility] will be out today to complete initial visit . At this time patient denies chest pain , shortness of breath, nausea,vomiting, numbness, tingling or heaviness, denies facial drooping or difficulty speaking. Patient reports ambulating without assistance . Appetite and fluid intake is well. Denies issues voiding or passing bowel. Is scheduled to follow up with Keshia on Monday01/15/24 at 10:15 am , confirm appointment with patient. Family member be bring patient to appointment. Reviewed and discussed medication regimen, sent message to provider for review. Over all patient has no questions or concerns aware to call in status changes . EDGAR HEBERT [address] [facility] [address], [place], [address], [place] [facility] 01/17/2024 11:36:01 01/15/2024 text/html Hospitalization Contact RecordFor follow up, patient reports hospital: [facility], admit date: (01/02/2024), date of discharge: (01/10/2024), and date of contact: (01/11/2024).Medicare covered inpatient stay? yesMedicare JOHN with in 48 working hours? yesHigh Complexity code valid on or before:JanuaryModerate Complexity code valid on or before:JanuaryHCP on file? noMOLST on file? yesDischarge Summary available? yes 83 year old female with several comorbidities including COPD, cognitive dysfunction present initial at [facility] complaining of right hand heaviness. Family noted facial drooping ad difficulty ambulating the night before. MRI of brain was ordered revealing signs of stroke . CTA was within normal limits, ekg and labs within normal limits as well. Neurologist was consulted and recommend patient started on baby aspirin . Patient was cleared to be discharge to [facility] on 01/02/2024 for further medical management and re conditioning. During rehab stay patient hit all milestones, received PT, OT , senior care. Medication amlodipine was held , sent message to provider if should continue . [employer] Operator JOHN call to patient regarding discharge status , patient reports happy to be home. Received call from [facility] will be out today to complete initial visit . At this time patient denies chest pain , shortness of breath, nausea,vomiting, numbness, tingling or heaviness, denies facial drooping or difficulty speaking. Patient reports ambulating without assistance . Appetite and fluid intake is well. Denies issues voiding or passing bowel. Is scheduled to follow up with Keshia on Monday01/15/24 at 10:15 am , confirm appointment with patient. Family member be bring patient to appointment. Reviewed and discussed medication regimen, sent message to provider for review. Over all patient has no questions or concerns aware to call in status changes . EDGAR HEBERT [address] [facility] [address], [place], [address], [facility] 01/24/2024 09:30:37 01/26/2024 text/html Mckenna Underwood is a 83 year old F who presented to the clinic for follow-up on weight and recent CVA. 1) CVA: pt was discharged on 01/10/2024. Diagnosed through MRI has initial CT scan was normal. Neurologist was consulted and recommend patient started on baby aspirin. Pt has right sided weakness and speech difficulties. 2) Weight: Prior to CVA pt was under a lot stress as she was in the process of moving and selling her house. During this time it was noted that patient had a 7lbs weight loss. JHON PULIDO MD [address], [address], [facility] 01/26/2024 14:36:50 04/30/2024 text/html EdemaReported bypatient.Quality:leg s swell equally Severity:mild Duration:constant Onset/Timing:abrupt onset Context:no prior history of edema; no prior history of deep vein thrombosis; no new medications; normal salt intake; no recent travel Mckenna Underwood is a 84 year old F who presented to the clinic for follow-up on weight and recent CVA. 1) CVA: pt was discharged on 01/10/2024. Diagnosed through MRI has initial CT scan was normal. Neurologist was consulted and recommend patient started on baby aspirin. Pt has right sided weakness and speech difficulties. 2) Weight: Prior to CVA pt was under a lot stress as she was in the process of moving and selling her house. Pt has been able to gain 7lbs since last visit. Patient mentions she is having a hard time swallowing the atorvastatin 80mg pills. JHON PULIDO MD [address], [address], [facility] 04/30/2024 15:20:52 05/31/2024 text/html EdemaReported bypatient.Quality:leg s swell equally Severity:mild Duration:constant Onset/Timing:abrupt onset Context:no prior history of edema; no prior history of deep vein thrombosis; no new medications; normal salt intake; no recent travel Modifying Factors:OTC medication Mckenna Underwood is a 84 year old F who presented to the clinic for follow-up on weight and blood pressure. Weight: Prior to CVA pt was under a lot stress as she was in the process of moving and selling her house. Pt has been able to gain 7lbs since last visit. However due to bilateral lower extremity swelling concerned for possible fluid retention. As a result amlodipine was stopped and patient was started on furosemide. Pt weight has decreased from last visit however there is no longer any lower extremity edema. JHON PULIDO MD [address] [address], [place], [address], [facility] 05/31/2024 12:18:00 OBGyn Episode No OBEpisode recorded.
== END ==
LOC: HO.CARD 09:41
PROVIDERS: Visit Provider Nurse Practitioner Family
DX: G45.9 Transient cerebral ischemic attack, unspecified (principal); I63.9 Cerebral infarction, unspecified
CPT/HCPCS: 93242

== ENCOUNTER → 2024-07-18 09:44 | Outpatient (BNV) | payer MEDICARE, SELFPAY | PROVIDERS: Visit Provider Internal Medicine Cardiovascular Disease | DX: I49.3 Ventricular premature depolarization (principal) | CPT/HCPCS: 93244 ==

== ENCOUNTER 2024-09-26 09:48 | Outpatient (AMB) | payer MEDICARE, SELFPAY ==
[2024-09-26 10:01] VITALS: BP 160/54; PULSE 80; O2SAT 96; BMI 17.2
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
== END 2024-09-26 10:27 | disposition home or self-care (01) ==
LOC: HO.HPS 09:48
PROVIDERS: PCP Student in an Organized Health Care Education/Training Program; Visit Provider Hospitalist
DX: J45.41 Moderate persistent asthma with (acute) exacerbation (principal); J44.9 Chronic obstructive pulmonary disease, unspecified; R91.8 Other nonspecific abnormal finding of lung field; J98.11 Atelectasis; R05.9 Cough, unspecified; R06.09 Other forms of dyspnea
CPT/HCPCS: 99214; G2211

== ENCOUNTER → 2024-09-26 09:48 | Outpatient (BNVA) | payer MEDICARE, SELFPAY | PROVIDERS: PCP Student in an Organized Health Care Education/Training Program; Visit Provider Hospitalist | DX: J45.41 Moderate persistent asthma with (acute) exacerbation (principal); J44.9 Chronic obstructive pulmonary disease, unspecified; J98.11 Atelectasis; R91.8 Other nonspecific abnormal finding of lung field; R05.9 Cough, unspecified; R06.09 Other forms of dyspnea | CPT/HCPCS: 99212 ==

== ENCOUNTER 2025-01-13 13:53 | Outpatient (AMB) | payer MEDICARE, SELFPAY ==
[2025-01-13 14:29] VITALS: BP 120/60; PULSE 74; O2SAT 94; BMI 16.6
--- NOTE | 2025-01-13 14:29 | A.OFFVIS_ITS ---
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: No Accompanied by: Self / Same As Patient Allergies Opiates Allergy (Intermediate, Uncoded 01/13/25 14:31) Itch and Hives Medication List - Last Reconciled 01/13/25 by SYEDA Pond acetaminophen (Tylenol) 325 mg PO QID PRN albuterol sulfate 2.5 mg (3 mL) inhalation Q6H PRN 30 days amlodipine 5 mg See Protocol PO DAILY aspirin 81 mg PO DAILY atorvastatin 40 mg PO BEDTIME budesonide-formoterol 160-4.5 mcg/actuation 2 puffs inhalation BID 30 days calcium carbonate (Calcium 500) 1,000 mg PO DAILY cholecalciferol (vitamin D3) 25 mcg PO DAILY folic acid 1 mg PO DAILY hydroxychloroquine 200 mg PO DAILY levothyroxine 50 mcg PO DAILY methotrexate sodium (PF) 12.5 mg subcut FR metoprolol succinate ER 25 mg PO DAILY nebulizers As directed primidone 25 mg (1/2 x 50 mg) PO BEDTIME 90 days umeclidinium 62.5 mcg/actuation (Incruse Ellipta) 1 inh inhalation DAILY 30 days HPI Comments Details: An 84-year-old female presenting for follow-up for tremor, focal dysphonia, and a 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 The patient denies any significant medical changes over the interval. * However, she also reports that she has struggled to gain and maintain weight. She states that she thinks this is due to her not always liking or tolerating well dinner served at her independent living residence. She no longer cooks full meals, but in her own apartment, she uses the to[employer] and microwave. She may make an Danish muffin with peanut butter and jam or other simple snack meals. * She also reports that recently, for 2-3 weeks, she experienced episodes of a generalized electrical buzzing sensation. This issue began without a known cause and then resolved on its own. Regarding the history of stroke: * Denies any interval stroke-like symptoms. She reports her BP is usually well controlled, though she may have a bit of white coat syndrome where her BP is elevated during medical appointments. Her PCP has referred her to [facility], and she is scheduled to establish care with them on April 03. She underwent a 72-hour Holter monitor and echocardiogram. * 07/18/2024 through 07/21/2024, 72-hour Holter monitor: * Baseline was normal sinus rhythm with an average heart of 66 beats per minute * Frequent PVCs noted with a total burden of 1.5% with frequent short runs of SVE, is consistent with SVT, lasting 11 beats at 141 beats per minute * 07/24/2024, echocardiogram, ordered by her PCP: * Summary: Technically difficult study. The left ventricular size is normal. Left ventricular wall thickness is normal. The LV systolic function is normal. The left ventricular ejection fraction is 60-65%. There are no definite regional wall motion abnormalities. Normal diastolic function. The right ventricle is normal in size and systolic function. Normal biatrial size. There is mild aortic regurgitation. There is mild tricuspid valve regurgitation. Normal CVP and PASP estimate. Comparison is made with the study of May 10, 2022. No definite significant change. 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 People have difficulty understanding her. She has not done GEOGRAPHIC INFORMATION SCIENTIST therapy in a long time. * Reports her hand tremors are overall stable, but do interfere with fine motor skills, such as using her phone. * Reports she is walking okay overall. She has started taking a Jt Chi class at her independent living facility. She really only has difficulties as she is stepping up onto occur without support. She does have a walking stick that she can use if she needs it. * She is compliant with primidone 25 mg daily at bedtime, but states she is open to trying to take 50 mg daily at bedtime. [facility] Medical History (Updated 01/13/25 @ 17:10 by SYEDA Pond) Stroke Pneumonia Chronic cough Bronchiolitis Pulmonary nodules Atelectasis Asthma-COPD overlap syndrome Surgical History Hx of neck surgery History of back surgery H/O: hysterectomy Hx of appendectomy Family History Father Heart disease Lung disease Dementia Son Epilepsy Social History Household Members: None Housing: House Housing Other:: independent living facility Do you presently have visiting nurse or other home services: No Alcohol intake: never Patient Tobacco Use Status: Former Tobacco user Tobacco use type: Cigarette Cigarette Packs Per Day: 1 Years Smoked: 4 Advance Directives Date on File: 01/01/24 service: No Physical Exam Vital Signs: Last Vital Signs Pulse 74 01/13/25 14:29 BP 120/60 01/13/25 14:29 Pulse Ox 94 01/13/25 14:29 Oxygen Delivery Method Room Air 01/13/25 14:29 BMI result Body Mass Index 16.6 Const General: cooperative and no acute distress Resp Effort & Inspection: normal respiratory effort and able to speak in complete sentences Neuro Other: General: A&O x's 3 Expression: Intact Voice: Hoarse, soft, dysphonia Tremor: Mild LUE postural tremor. No visible head tremor. Tone: No significant spasticity or rigidity noted Dyskinesia: None FFM: Slight decrease on left Foot taps: Slight decrease on left Muscle strength- mild RLE weakness Gait: Stands easily, good stride-, steady gait Psych: Pleasant affect. Assessment & Plan Assessment & Plan (1) Stroke: Comment: 12/2023- Focal acute infarct in the left frontal centrum semiovale. Additional punctate acute infarct in the cortical juarez matter of the posterior left parietal lobe. Code(s): I63.9 - Cerebral infarction, unspecified Category: Medical Qualifiers: CVA mechanism: unspecified Qualified Code(s): I63.9 - Cerebral infarction, unspecified (2) Essential tremor: Code(s): G25.0 - Essential tremor Category: Medical (3) Dysphonia, spasmodic: Code(s): J38.3 - Other diseases of vocal cords Category: Medical (4) Cognitive dysfunction: Code(s): F09 - Unspecified mental disorder due to known physiological condition Category: Medical Plan Plan For left frontal and parietal stroke: Continue taking aspirin, antihypertensive medications, and statins. Reviewed echocardiogram results, the results of which were reassuring?no evidence of LV dysfunction or aortic stenosis. Reviewed the 72-hour Holter, which did show frequent PVCs. Cardiology consult as scheduled For tremor, dysphonia, and cognition: Discontinue primidone 25 mg daily at bedtime. Start primidone 50 mg daily at bedtime. We will request speech therapy for dysphonia and voice tremor therapy * we will reach out to your independent living facility, [facility], to determine if they offer GEOGRAPHIC INFORMATION SCIENTIST therapy there Chew your food slowly, taking small bites to avoid swallowing issues. Metoprolol may help with tremors - continue as per cardiology. For REM sleep behaviors- Monitor. Keep the area around the bed clear of clutter and notify us of any worsening sleep behaviors. Continue strategies to break freezing/stuck episodes - stepping in place, tapping her thigh/hip. Continue to engage in regular cognitive and socially stimulating activities. Continue to exercise as tolerated, such as the Jt-Chi class you are taking. Continue using a walking stick when outside or on uneven surfaces. Future considerations: Referral to [facility] for Botox therapy, in-lab PSG? ARTEM/narcolepsy/hypersomnia, low dose CD-LD. Patient to follow up in 6 months or sooner as needed. Medications: Changed From primidone May take extra 1/2 tab per day prn tremor 25 mg (1/2 x 50 mg) PO BEDTIME 90 days 90 tabs 1RF To primidone 50 mg PO BEDTIME 90 tabs 1RF 90 days Coding Level of Care Code Est Pt Level 4 (76511) Diagnoses Cerebrovascular accident (CVA), unspecified mechanism I63.9 CVA mechanism: unspecified Essential tremor G25.0 Dysphonia, spasmodic J38.3 Cognitive dysfunction F09
== END 2025-01-13 15:17 | disposition home or self-care (01) ==
LOC: HO.HSMS 13:54
PROVIDERS: PCP Internal Medicine Geriatric Medicine; Visit Provider Nurse Practitioner Family
DX: I69.318 Other symptoms and signs involving cognitive functions following cerebral infarction (principal); G25.0 Essential tremor; J38.3 Other diseases of vocal cords
CPT/HCPCS: 99214

== ENCOUNTER → 2025-01-13 13:53 | Outpatient (BNVA) | payer MEDICARE, SELFPAY | PROVIDERS: PCP Internal Medicine Geriatric Medicine; Visit Provider Nurse Practitioner Family | DX: I69.314 Frontal lobe and executive function deficit following cerebral infarction (principal); G25.0 Essential tremor; J38.3 Other diseases of vocal cords | CPT/HCPCS: 99212 ==

== ENCOUNTER 2025-01-30 10:57 | Outpatient (AMB) | payer MEDICARE, SELFPAY ==
[2025-01-30 11:02] VITALS: BP 150/78; PULSE 77; O2SAT 96; BMI 16.8
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
== END 2025-01-30 11:30 | disposition home or self-care (01) ==
LOC: HO.HPS 10:57
PROVIDERS: PCP Student in an Organized Health Care Education/Training Program; Visit Provider Hospitalist
DX: J45.41 Moderate persistent asthma with (acute) exacerbation (principal); J44.9 Chronic obstructive pulmonary disease, unspecified; R91.8 Other nonspecific abnormal finding of lung field; J98.11 Atelectasis; R05.9 Cough, unspecified; R06.09 Other forms of dyspnea; J38.3 Other diseases of vocal cords
CPT/HCPCS: 99214; G2211

== ENCOUNTER → 2025-01-30 10:57 | Outpatient (BNVA) | payer MEDICARE, SELFPAY | PROVIDERS: PCP Student in an Organized Health Care Education/Training Program; Visit Provider Hospitalist | DX: J45.41 Moderate persistent asthma with (acute) exacerbation (principal); J44.89 Other specified chronic obstructive pulmonary disease; R91.8 Other nonspecific abnormal finding of lung field; J98.11 Atelectasis; R06.09 Other forms of dyspnea; J38.3 Other diseases of vocal cords; Z87.891 Personal history of nicotine dependence | CPT/HCPCS: 99212 ==